=== PATIENT | male | born 1940 | race Caucasian/White ===

== ENCOUNTER → 2019-08-22 13:44 | Outpatient (BNVA) | payer MEDICARE, MEDICAID, SELFPAY | PROVIDERS: Family Provider Nurse Practitioner Family; PCP Psychiatry & Neurology Neurology; Referring Provider Psychiatry & Neurology Neurology; Visit Provider Specialist | DX: G20 Parkinson's disease (principal); Z87.891 Personal history of nicotine dependence | CPT/HCPCS: 99204; 99214 ==

== ENCOUNTER → 2019-11-30 13:38 | Outpatient (BNVA) | payer MEDICARE, MEDICAID, SELFPAY | PROVIDERS: Family Provider Nurse Practitioner Family; PCP Psychiatry & Neurology Neurology; Visit Provider Specialist | DX: G20 Parkinson's disease (principal) | CPT/HCPCS: 99213; 99214 ==

== ENCOUNTER → 2020-05-23 10:18 | Outpatient (BNVA) | payer MEDICARE, MEDICAID, SELFPAY | PROVIDERS: Family Provider Nurse Practitioner Family; PCP Obstetrics & Gynecology; Visit Provider Specialist | DX: G20 Parkinson's disease (principal); Z87.891 Personal history of nicotine dependence | CPT/HCPCS: 99214 ==

== ENCOUNTER → 2020-10-29 09:30 | Outpatient (BNVA) | payer MEDICARE, MEDICAID, SELFPAY | PROVIDERS: Family Provider Nurse Practitioner Family; PCP Obstetrics & Gynecology; Visit Provider Specialist | DX: G20 Parkinson's disease (principal); Z96.82 Presence of neurostimulator; Z87.891 Personal history of nicotine dependence | CPT/HCPCS: 95983; 95984; 99215 ==

== ENCOUNTER → 2020-12-26 10:00 | Outpatient (BNVA) | payer MEDICARE, MEDICAID, SELFPAY | PROVIDERS: Family Provider Nurse Practitioner Family; PCP Obstetrics & Gynecology; Visit Provider Specialist | DX: G20 Parkinson's disease (principal); Z48.02 Encounter for removal of sutures; Z96.82 Presence of neurostimulator | CPT/HCPCS: 95983; 95984; 99215 ==

== ENCOUNTER → 2021-02-27 13:43 | Outpatient (BNVA) | payer MEDICARE, MEDICAID, SELFPAY | PROVIDERS: Family Provider Nurse Practitioner Family; PCP Obstetrics & Gynecology; Visit Provider Specialist | DX: G20 Parkinson's disease (principal); Z96.82 Presence of neurostimulator; Z87.891 Personal history of nicotine dependence | CPT/HCPCS: 95983; 95984; 99213; 99214 ==

== ENCOUNTER → 2021-06-17 09:12 | Outpatient (BNVA) | payer MEDICARE, MEDICAID, SELFPAY | PROVIDERS: Family Provider Nurse Practitioner Family; PCP Obstetrics & Gynecology; Visit Provider Specialist | DX: G20 Parkinson's disease (principal); Z96.82 Presence of neurostimulator; Z87.891 Personal history of nicotine dependence | CPT/HCPCS: 95983; 95984; 99214 ==

== ENCOUNTER 2021-06-25 08:16 | Outpatient (CLI) | payer MEDICARE, MEDICAID, SELFPAY ==
[2021-06-25 08:35] VITALS: BP 102/69; PULSE 84; RESP 17; TEMP 36.4; O2SAT 96
[2021-06-25 09:03] VITALS: BMI 25.1
[2021-06-25 09:20] VITALS: BP 100/68; PULSE 81; RESP 18; TEMP 36.4; O2SAT 93
[2021-06-25 10:20] VITALS: BP 116/82; PULSE 75; RESP 18; TEMP 36.3; O2SAT 94
== END 2021-06-25 08:17 | disposition home or self-care (01) ==
LOC: OPS 08:55
PROVIDERS: PCP Obstetrics & Gynecology; Visit Provider Obstetrics & Gynecology
DX: U07.1 COVID-19 (principal)
CPT/HCPCS: 96365

== ENCOUNTER 2021-07-03 06:00 | Outpatient (RCR) | payer MEDICARE, MEDICAID, SELFPAY | END 2021-07-08 23:59 | disposition home or self-care (01) | LOC: GST 06:00 | PROVIDERS: PCP Obstetrics & Gynecology; Referring Provider Specialist; Visit Provider Specialist | DX: G20 Parkinson's disease (principal) | CPT/HCPCS: 92524 ==

== ENCOUNTER 2021-07-09 06:00 | Outpatient (RCR) | payer MEDICARE, MEDICAID, SELFPAY | END 2021-08-05 23:59 | disposition home or self-care (01) | LOC: GST 06:00 | PROVIDERS: PCP Obstetrics & Gynecology; Visit Provider Specialist | DX: G20 Parkinson's disease (principal) | CPT/HCPCS: 92507 ==

== ENCOUNTER 2021-08-06 06:00 | Outpatient (RCR) | payer MEDICARE, MEDICAID, SELFPAY | END 2021-09-05 23:59 | disposition home or self-care (01) | LOC: GST 06:00 | PROVIDERS: PCP Obstetrics & Gynecology; Visit Provider Specialist | DX: G20 Parkinson's disease (principal) | CPT/HCPCS: 92507 ==

== ENCOUNTER 2021-09-06 06:00 | Outpatient (RCR) | payer MEDICARE, MEDICAID, SELFPAY | END 2021-09-25 23:59 | disposition home or self-care (01) | LOC: GST 06:00 | PROVIDERS: PCP Obstetrics & Gynecology; Visit Provider Specialist | DX: G20 Parkinson's disease (principal) | CPT/HCPCS: 92507 ==

== ENCOUNTER 2022-01-06 15:50 | Outpatient (CLI) | payer MEDICARE, MEDICAID, SELFPAY ==
[2022-01-06 16:23] LABS: INR 2.49 (0.8-1.2)
== END 2022-01-06 15:51 | disposition home or self-care (01) ==
PROVIDERS: PCP Obstetrics & Gynecology; Visit Provider Obstetrics & Gynecology
DX: I48.91 Unspecified atrial fibrillation (principal)
CPT/HCPCS: 85610

== ENCOUNTER 2022-01-28 18:26 | Outpatient (CLI) | payer MEDICARE, MEDICAID, SELFPAY ==
[2022-01-28 18:49] LABS: INR 2.31 (0.8-1.2)
== END 2022-01-28 18:27 | disposition home or self-care (01) ==
PROVIDERS: PCP Obstetrics & Gynecology; Visit Provider Obstetrics & Gynecology
DX: Z79.01 Long term (current) use of anticoagulants (principal)
CPT/HCPCS: 85610

== ENCOUNTER → 2022-02-04 10:27 | Outpatient (BNVA) | payer MEDICARE, MEDICAID, SELFPAY | PROVIDERS: PCP Obstetrics & Gynecology; Visit Provider Specialist | DX: G20 Parkinson's disease (principal); Z45.42 Encounter for adjustment and management of neurostimulator; Z96.82 Presence of neurostimulator | CPT/HCPCS: 95983; 95984; 99214 ==

== ENCOUNTER → 2022-07-09 12:01 | Outpatient (BNVA) | payer MEDICARE, MEDICAID, SELFPAY | PROVIDERS: PCP Obstetrics & Gynecology; Visit Provider Nurse Practitioner Family | DX: S42.322A Displaced transverse fracture of shaft of humerus, left arm, initial encounter for closed fracture (principal); W19.XXXA Unspecified fall, initial encounter; M79.602 Pain in left arm | CPT/HCPCS: 73030; 73060 ==

== ENCOUNTER → 2022-07-22 09:27 | Outpatient (BNVA) | payer MEDICARE, MEDICAID, SELFPAY | PROVIDERS: PCP Obstetrics & Gynecology; Visit Provider Specialist | DX: H10.33 Unspecified acute conjunctivitis, bilateral (principal); G20 Parkinson's disease; Z96.82 Presence of neurostimulator | CPT/HCPCS: 95983; 95984; 99214 ==

== ENCOUNTER → 2022-11-05 09:47 | Outpatient (BNVA) | payer MEDICARE, MEDICAID, SELFPAY | PROVIDERS: PCP Obstetrics & Gynecology; Visit Provider Specialist | DX: Z45.42 Encounter for adjustment and management of neurostimulator (principal); G20 Parkinson's disease; Z96.82 Presence of neurostimulator | CPT/HCPCS: 95983; 99214 ==

== ENCOUNTER → 2023-04-06 13:10 | Outpatient (BNVA) | payer MEDICARE, MEDICAID, SELFPAY | PROVIDERS: PCP Obstetrics & Gynecology; Visit Provider Nurse Practitioner | DX: J06.9 Acute upper respiratory infection, unspecified (principal) | CPT/HCPCS: 71046 ==

== ENCOUNTER → 2023-05-05 09:14 | Outpatient (BNVA) | payer MEDICARE, MEDICAID, SELFPAY | PROVIDERS: PCP Obstetrics & Gynecology; Visit Provider Specialist | DX: Z96.89 Presence of other specified functional implants (principal); G20.A2 Parkinson's disease without dyskinesia, with fluctuations | CPT/HCPCS: 95983; 95984; 99214 ==

== ENCOUNTER 2023-09-03 16:38 | Inpatient (IN) | payer MEDICARE, MEDICAID, SELFPAY ==
[2023-09-03] VITALS (12 sets, daily range): BP systolic 105–137; BP diastolic 61–84; PULSE 95–126; RESP 19–27; TEMP 36.9; O2SAT 88–93; BMI 23.0
--- NOTE | 2023-09-03 16:39 | CTR_ITS ---
PROCEDURE INFORMATION: Exam: CTA Chest With Contrast Exam date and time: 09/03/2023 6:31 PM Age: 82 years old Clinical indication: Pain; Shortness of breath; Chest pressure; Prior surgery; Surgery date: 6+ months; Surgery type: Pacemaker; Additional info: Cp TECHNIQUE: Imaging protocol: Computed tomographic angiography of the chest with contrast. Exam focused on the arteries. 3D rendering (Not supervised by radiologist): MIP and/or 3D reconstructed images were created by the technologist. Radiation optimization: All CT scans at this facility use at least one of these dose optimization techniques: automated exposure control; mA and/or kV adjustment per patient size (includes targeted exams where dose is matched to clinical indication); or iterative reconstruction. Contrast material: OMNI 350; Contrast volume: 65 ml; Contrast route: INTRAVENOUS (IV); COMPARISON: CR (CHEST, ) 09/03/2023 5:35 PM RADIATION DOSE METRICS: Total DLP (mGy-cm): 466.2 FINDINGS: Pulmonary arteries: Pulmonary emboli in the distal right main pulmonary artery extending into the right upper lobe and right middle lobe. Aorta: Unremarkable. No aortic aneurysm. No aortic dissection. Lungs: Patchy ground-glass and consolidative opacities in the lung bases and posterior aspect of the right upper lobe which may represent pulmonary infarcts. Pleural spaces: Unremarkable. No pneumothorax. No pleural effusion. Heart: There is evidence of right heart strain with an RV to LV ratio measuring 1.1. Lymph nodes: Unremarkable. No enlarged lymph nodes. Bones/joints: Unremarkable. No acute fracture. Soft tissues: Unremarkable. CT/CT angio chest PE protcl [id number] IMPRESSION: 1. Pulmonary emboli in the distal right main pulmonary artery extending into the right upper lobe and right middle lobe. 2. There is evidence of right heart strain with an RV to LV ratio measuring 1.1. 3. Patchy ground-glass and consolidative opacities in the lung bases and posterior aspect of the right upper lobe which may represent pulmonary infarcts.
--- NOTE | 2023-09-03 16:39 | XRR_ITS ---
PROCEDURE INFORMATION: Exam: XR Chest Exam date and time: 09/03/2023 5:35 PM Age: 82 years old Clinical indication: Chest wall pain; Additional info: Cp TECHNIQUE: Imaging protocol: Radiologic exam of the chest. Views: 1 view. COMPARISON: CR XR chest 2V* [id number] 04/06/2023 1:22 PM FINDINGS: Lungs: Irregular opacities in the right lung base lesser extent the left lung base. Pleural spaces: Unremarkable. No pleural effusion. No pneumothorax. Heart/Mediastinum: Unremarkable. No cardiomegaly. Bones/joints: Unremarkable. XR/XR chest 1V portable [id number] IMPRESSION: Irregular opacities in the right lung base and to a lesser extent the left lung base.
--- NOTE | 2023-09-03 16:44 | ECG_ITS ---
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 Measurements Intervals [place] Rate: 102 P: 0 [place]: 0 QRS: -76 QRSD: 82 T: 51 QT: 357 QTc: 465 Interpretive Statements UNINTERPRETABLE RHYTHM SECONDARY TO BASELINE ARTIFACT No previous ECG available for comparison Electronically Signed On 09-04-2023 8:38:03 CDT by Braxton John M.D. [id number] f
--- NOTE | 2023-09-03 16:47 | ED_ITS ---
HPI - Chest Pain 2 General: Chief Complaint: Chest Pain Stated Complaint: chest pain/ SOB Time Seen by Provider: 09/03/23 16:39 Source: patient Mode of arrival: ambulatory Limitations: no limitations History of Present Illness: 82-year-old male is here from the neurol ogy clinic after wrap response for chest pain shortness of breath. Patient's been in the long-term states he has been less mobile and states yesterday started having some sharp pains to the right side of his chest along with shortness of breath. States it is worse with exertion denies any cough or fever. Rates his pain a 4 out of 10 currently Associated symptoms: Reports dyspnea; Deny abdominal pain, fever(s), nausea or vomiting Review of Systems 2 Const: Denies: fever(s), chills, body aches or change in appetite ENMT: Denies: throat pain or dental pain Card: Reports: chest pain Resp: Reports: dyspnea GI: Denies: abdominal pain, nausea, vomiting or diarrhea Musc: Denies: neck pain or back pain Skin/Breast: Denies: rash Neuro: Denies: headache(s) PFSH ED 2 PFSH: Medical History Parkinson's Disease Surgical History Status post deep brain stimulator placement Family History Other Cancer Diabetes Hypertension Denies family history of CAD (coronary artery disease) Family history of premature coronary artery disease Stroke Social History Smoking and tobacco/nicotine status: former use of tobacco/nicotine Quit status (tobacco/nicotine): has quit using Year quit tobacco: 1986 Alcohol intake: current Alcohol intake frequency: 3 or more drinks per day Alcohol type: beer Substance/Drug Use: never Physical Exam 2 Const: COMMON NORMALS: no acute distress, patient oriented x3 and healthy appearing HENMT: COMMON NORMALS: normocephalic and atraumatic HEAD & SCALP: n ormocephalic and atraumatic Neck/C-Spine: COMMON NORMALS: full ROM and supple Chest: COMMONS NORMALS: normal inspection of the chest and normal palpation of entire chest wall Resp: COMMON NORMALS: normal respiratory effort, No retractions, No use of accessory muscles and clear to auscultation bilaterally AUSCULTATION: clear to auscultation bilaterally Cardio: COMMON NORMALS: regular rate, regular rhythm and No murmurs present (Cardio) RATE: regular rate RHYTHM: regular rhythm GI: COMMON NORMALS: Normal to inspection, nondistended, normoactive bowel sounds present, Soft to palpation, non-tender and no masses PALPATION: Yes Soft to palpation Extremity: COMMON NORMALS: normal to inspection and full ROM Neuro: COMMON NORMALS: patient oriented x3, moves all extremities and no focal motor deficits Psych: COMMON NORMALS: mental status grossly normal, Normal thought process present and cooperative THOUGHT PROCESS: Normal thought process present Skin: COMMON NORMALS: no rashes or lesions noted and no wounds GENERAL SKIN EXAM: no rashes or lesions noted Course 2 Vital Signs: Vital signs: Vital Signs Temperature 98.4 F 09/03/23 16:45 Pulse Rate 104 H 09/03/23 19:30 Respiratory Rate 22 H 09/03/23 16:45 Blood Pressure 105/61 09/03/23 19:30 Pulse Oximetry 91 09/03/23 19:30 Oxygen Delivery Me thod Nasal Cannula 09/03/23 19:30 Oxygen Flow Rate 2 09/03/23 19:30 MDM - Chest Pain Medical Decision Making Patient presents with pulmonary emboli his blood pressure here has been stable will started on heparin spoke to the hospitalist will admit to cardiac stepdown at this time. Medical Records I reviewed the patient's medical records. Lab Data I reviewed the patient's lab results. 09/03/23 18:18 09/03/23 17:36 Radiology Impressions Chest CTA 09/03/23 16:39 IMPRESSION: 1. Pulmonary emboli in the distal right main pulmonary artery extending into the right upper lobe and right middle lobe. 2. There is evidence of right heart strain with an RV to LV ratio measuring 1.1. 3. Patchy ground-glass and consolidative opacities in the lung bases and posterior aspect of the right upper lobe which may represent pulmonary infarcts. Chest X-Ray 09/03/23 16:39 IMPRESSION: Irregular opacities in the right lung base and to a lesser extent the left lung base. Laboratory Results WBC 13.72 10^3/uL (3.29-11.43) H 09/03/23 18:18 Corrected WBC Cancelled 09/03/23 17:36 RBC 3.92 10^6/uL (3.85-5.65) 09/03/23 18:18 Hgb 12.30 g/dL (11.27-16.99) 09/03/23 18:18 Hct 37.1 % (37-53) 09/03/23 18:18 MCV 94.6 fl (82-101) 09/03/23 18:18 MCH 31.4 pg (27-33) 09/03/23 18:18 MCHC 33.2 g/dL (30-55) 09/03/23 18:18 RDW 12.7 % (12.1-15.1) 09/03/23 18:18 Plt Count 167 10^3/cmm (157-399) 09/03/23 18:18 MPV 9.4 fL (7.4-10.4) 09/03/23 18:18 Gran % Cancelled 09/03/23 17:36 Neut % (Auto) 79.3 % 09/03/23 18:18 Lymph % (Auto) 7.1 % 09/03/23 18:18 [place] % (Auto) 12.8 % 09/03/23 18:18 Eos % (Auto) 0.1 % 09/03/23 18:18 Baso % (Auto) 0.1 % 09/03/23 18:18 Neut # (Auto) 10.88 10^3/uL (1.8-7.7) H 09/03/23 18:18 Lymph # (Auto) 1.0 10^3/uL (0.8-4.8) 09/03/23 18:18 [place] # (Auto) 1.8 10^3/uL (0.2-0.9) H 09/03/23 18:18 Eos # (Auto) 0.0 10^3/uL (0.0-0.8) 09/03/23 18:18 Baso # (Auto) 0.0 10^3/uL (0.0-0.1) 09/03/23 18:18 Absolute Gran (auto) Cancelled 09/03/23 17:36 Nucleated RBC % (auto) 0 % 09/03/23 18:18 Nucleated RBCs # 0.0 /100WBC 09/03/23 18:18 PT 15.30 SECONDS (12.1-14.9) H 09/03/23 17:36 INR 1.17 (0.8-1.2) 09/03/23 17:36 Sodium 139 mmol/L (136-145) 09/03/23 17:36 Potassium 4.4 mmol/L (3.5-5.1) 09/03/23 17:36 Chloride 105 mmol/L (98-107) 09/03/23 17:36 Carbon Dioxide 23 mmol/L (22-29) 09/03/23 17:36 Anion Gap 15.4 (5-19) 09/03/23 17:36 BUN 17 mg/dL (8-23) 09/03/23 17:36 Creatinine 0.7 mg/dL (0.7-1.2) 09/03/23 17:36 GFR Calculation Not Reportable 09/03/23 17:36 Glucose 109 mg/dL (65-115) 09/03/23 17:36 Calculated Osmolality 290 mOsm/kg (285-295) 09/03/23 17:36 Calcium 8.8 mg/dL (8.5-10.5) 09/03/23 17:36 Total Bilirubin 0.7 mg/dL (0.15-1.2) 09/03/23 17:36 AST 23 U/L (0-40) 09/03/23 17:36 ALT 20 U/L (0-41) 09/03/23 17:36 Alkaline Phosphatase 171 U/L (40-130) H 09/03/23 17:36 Troponin T Baseline < 6 ng/L (0-15) 09/03/23 17:36 NT-Pro-B Natriuret Pep 1431 pg/mL (0-450) H 09/03/23 17:36 Total Protein 7.1 g/dL (6.6-8.7) 09/03/23 17:36 Albumin 3.3 g/dL (3.5-5.2) L 09/03/23 17:36 Globulin 3.8 g/dL (1.3-4.6) 09/03/23 17:36 TSH 1.00 uIU/mL (0.27-4.20) 09/03/23 17:36 All radiology interpretation(s) finalized by discharge Critical Care Time 2 Critical Care Time: Critical Care Time: Yes Total Critical Care Time: 40 Attestation: The high probability of a clinically significant, sudden or life threatening deterioration of the patient's cv system(s) required my full and direct attention, intervention and personal management. The critical care time is as shown. This time is in addition to time spent performing any reported procedures but includes the following: [x] Data and vital sign review and interpretation [x] Patient assessment, examination and intervention [x] Documentation [x] Medication orders and management Discharge Plan Discharge Patient Disposition: Admitted As Inpatient Clinical Impression: Pulmonary embolism Condition: Stable Prescriptions: No Action warfarin 5 mg tablet 5 mg PO .COMPLEX Rx Instructions: 5 mg PO ; levothyroxine 75 mcg capsule 75 mcg PO DAILY multivitamin Capsule 1 cap PO DAILY tamsulosin 0.4 mg capsule 0.4 mg PO DAILY furosemide 20 mg tablet 10 mg PO QAM carbidopa-levodopa 25-100 mg tablet 1 tab PO BID Qty: 180 3RF Rx Instructions: In the morning and at noon along with the ER dose carbidopa-levodopa 50-200 mg tablet extended release See Rx Instructions .ROUTE .COMPLEX Qty: 270 3RF Dose Instruction: TAKE ONE TABLET BY MOUTH EVERY MORNING, AT NOON AND IN THE EVENING Rx Instructions: TAKE ONE TABLET BY MOUTH EVERY MORNING, AT NOON AND IN THE EVENING rivastigmine tartrate 1.5 mg capsule 1.5 mg PO BID 90 Days Qty: 180 3RF metoprolol succinate 50 mg tablet extended release 24 hr See Rx Instructions .ROUTE .COMPLEX Qty: 60 5RF Dose Instruction: TAKE ONE TABLET BY MOUTH TWICE A DAY Rx Instructions: TAKE ONE TABLET BY MOUTH TWICE A DAY Referrals: Lance Davila MD [Primary Care Provider] - Coding Level of Care Code ED Correctional Maintenance Technician for Elaine Burton
[2023-09-03 18:06] LABS: INR 1.17 (0.8-1.2)
[2023-09-03 18:08] LABS: Troponin(5th) Baseline < 6 ng/L (0-15)
[2023-09-03 18:17] LABS: Alanine Aminotransferase 20 U/L (0-41); Albumin Level 3.3 g/dL (3.5-5.2); Alkaline Phosphatase 171 U/L (40-130); Aspartate Amino Transferase 23 U/L (0-40); Blood Urea Nitrogen 17 mg/dL (8-23); Calcium 8.8 mg/dL (8.5-10.5); Carbon Dioxide 23 mmol/L (22-29); Chloride 105 mmol/L (98-107); Globulin 3.8 g/dL (1.3-4.6); Glucose 109 mg/dL (65-115); NT Pro B Type Natriuretic Pept 1431 pg/mL (0-450); Osmolality Calculated 290 mOsm/kg (285-295); Sodium 139 mmol/L (136-145); Total Bilirubin 0.7 mg/dL (0.15-1.2); Total Protein 7.1 g/dL (6.6-8.7)
[2023-09-03 18:25] LABS: Basophils % 0.1 %; Eosinophils % 0.1 %; Hematocrit 37.1 % (37-53); Lymphocytes % 7.1 %; Mean Corpuscular HGB Conc 33.2 g/dL (30-55); Mean Corpuscular Hemoglobin 31.4 pg (27-33); Mean Corpuscular Volume 94.6 fl (82-101); Mean Platelet Volume 9.4 fL (7.4-10.4); Monocytes # 1.8 10^3/uL (0.2-0.9); Monocytes % 12.8 %; Neutrophils # 10.88 10^3/uL (1.8-7.7); Neutrophils % 79.3 %; Nucleated Red Blood Cells % 0 %; Platelet Count 167 10^3/cmm (157-399); Red Blood Count 3.92 10^6/uL (3.85-5.65); Red Cell Distribution Width 12.7 % (12.1-15.1); White Blood Count 13.72 10^3/uL (3.29-11.43)
[2023-09-03 18:33] LABS: Anion Gap 15.4 (5-19); Potassium 4.4 mmol/L (3.5-5.1)
--- NOTE | 2023-09-03 18:39 | ECG_ITS ---
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 Measurements Intervals [place] Rate: 124 P: 0 [place]: 0 QRS: -1 QRSD: 81 T: -29 QT: 336 QTc: 484 Interpretive Statements ATRIAL FIBRILLATION WITH RAPID VENTRICULAR RESPONSE POSSIBLE ANTERIOR MYOCARDIAL INFARCTION , OF INDETERMINATE AGE [30 ms Q WAVE IN V3/V4, OR R < 0.2 mV IN V4] ST DEPRESSION, CONSIDER SUBENDOCARDIAL INJURY [0.1+ mV ST DEPRESSION] Electronically Signed On 09-04-2023 8:38:42 CDT by Braxton John M.D. [id number]
[2023-09-03] MEDS: iohexol 350 mg/mL 500 mL Btl (per mL) IV (18:41)
[2023-09-03 19:37] LABS: Troponin 5 2HR Delta 0.40001 ABS# (0-10)
--- NOTE | 2023-09-03 21:47 | P.HP_ITS ---
Providers/Chief Complaint 2 Admitting Physician: Jenn Giles MD Primary Care Provider: Lance Davila MD Chief Complaint: chest pain/ SOB History of Present Illness Farhat Guardado is a 82 year old male here from [facility] [place], he was at neurology clinic today following up with Dr. Rios for his Parkinson's disease, rapid response was called when he started complaining of left-sided chest pain which lasted for about a few minutes, in the ER CT chest revealed PE with right heart strain, he was in A-fib RVR subtherapeutic he was started on heparin drip. At the time of my evaluation he is not in active chest pain. A-fib RVR heart rate in 110s to 130 range. I will give him Cardizem 5 mg IV push. Patient is not complaining active chest pain, he is denying nausea, vomiting, stating that [facility] soft diet [facility], uses a walker, he is also endorsing that he is DNR/DNI Review of Systems 2 Const: Denies: fever(s) Eyes: Denies: change in vision ENMT: Denies: throat pain Card: Reports: swelling of feet/ankles; Denies: chest pain Resp: Denies: dyspnea GI: Denies: abdominal pain : Denies: flank pain Medications/Allergies Home Medications Medication Instructions Recorded Confirmed Last Taken Type furosemide 20 mg tablet 10 mg PO QAM 08/22/19 09/03/23 Unknown History levothyroxine 75 mcg capsule 75 mcg PO DAILY 08/22/19 09/03/23 Unknown History multivitamin 1 cap PO DAILY 08/22/19 09/03/23 Unknown History tamsulosin 0.4 mg capsule 0.4 mg PO DAILY 08/22/19 09/03/23 Unknown History warfarin 5 mg tablet 5 mg PO .COMPLEX 08/22/19 09/03/23 Unknown History carbidopa 25 mg-levodopa 100 mg 1 tab PO BID #180 tabs 05/05/23 09/03/23 Unknown Rx tablet carbidopa ER 50 mg-levodopa 200 mg See Rx Instructions .Route 05/05/23 09/03/23 Unknown Rx tablet,extended release .COMPLEX #270 tabs rivastigmine tartrate 1.5 mg 1.5 mg PO BID 90 days #180 caps 05/05/23 05/05/23 Unknown Rx capsule metoprolol succinate 50 mg See Rx Instructions .Route 07/15/23 09/03/23 Unknown Rx tablet,extended release 24 hr .COMPLEX #60 tabs Allergies Allergy/AdvReac Type Severity Reaction Status Date / Time adhesive Allergy rash Verified 09/03/23 14:38 PFSH Acute 2 PFSH: Medical History Thyroid disease Afib Pacemaker Parkinson's Disease Surgical History History of surgery on arm Status post deep brain stimulator placement Family History Other Cancer Diabetes Hypertension Denies family history of CAD (coronary artery disease) Family history of premature coronary artery disease Stroke Social History Smoking and tobacco/nicotine status: former use of tobacco/nicotine Quit status (tobacco/nicotine): has quit using Year quit tobacco: 1986 Alcohol intake: current Alcohol intake frequency: 3 or more drinks per day Alcohol type: beer Substance/Drug Use: never Vitals/I&O/Wt Last Vital Signs Temp 98.4 F 09/03/23 21:36 Pulse 119 H 09/03/23 21:36 Resp 27 H 09/03/23 21:36 BP 121/75 09/03/23 21:36 Pulse Ox 93 09/03/23 21:36 O2 Del Method Nasal Cannula 09/03/23 21:36 O2 Flow Rate 2 09/03/23 20:00 09/03/23 09/03/23 09/03/23 06:59 14:59 22:59 Intake Total 300 / 300 Balance 300 / 300 Weight last 48 hrs Weight 94.075 kg Weight 74.843 kg Weight 74.843 kg Physical Exam 2 Narrative: Patient on 3 L of oxygen Currently is in A-fib RVR Active chest pain Able to answer my question Dry mucous membranes however patient is showing signs of fluid overload Lower extremity edema 3+ GCS 15 NIH 0 Abdomen distended nontender no active chest pain Data 09/03/23 18:18 09/03/23 17:36 A&P Assessment and plan (1) Pulmonary embolism: (2) Parkinson's Disease: Qualifiers: Dyskinesia presence: without dyskinesia Fluctuating manifestations: w ith fluctuating manifestations Qualified Code(s): G20.A2 - Parkinson's disease without dyskinesia, with fluctuations (3) Shortness of breath: (4) Edema: Plan PE: Submassive Start heparin drip Right heart strain Check echo Troponin unremarkable No active chest pain A-fib RVR Cardizem 5 mg IV push I will change his metoprolol succinate to tartrate at this point Check mag level along potassium Patient is hypothyroid as well Subtherapeutic INR Patient is willing to switch to Eliquis If his insurance is able to cover Eliquis we can stop bridging therapy with Coumadin and switch to Eliquis at the time of discharge Acute CHF exacerbation EF is unknown Request echo I want to give Lasix at this point because no sign of pulmonary edema however he is showing signs of fluid overload blood pressure is on softer side avoid Lasix at this point Will add low-dose Lasix in the morning Place Goldstein catheter Acute hypoxia requiring 3 L Does not use oxygen at the [facility] Anticipate improvement with diuresis in the morning Parkinson's disease continue Carbidopa/levodopa Patient is DNR/DNI Will do pur?ed diet Attestations 2 Medical Necessity Statement*: More than 2 midnights anticipated Diagnoses Pulmonary embolism I26.99 Parkinson's disease without dyskinesia, with fluctuating manifestations G20.A2 Dyskinesia presence: without dyskinesia Fluctuating manifestations: with fluctuating manifestations Shortness of breath R06.02 Edema R60.9
[2023-09-03] MEDS: heparin 5,000 unit/mL INJ 1 mL 4000 UNIT IVP (21:49)
[2023-09-03] MEDS: heparin drip 25,000 UNIT/500 ML PREMIX 26 UNIT IV (21:54)
[2023-09-04] VITALS (9 sets, daily range): BP systolic 99–107; BP diastolic 58–76; PULSE 91–125; RESP 18–25; TEMP 36.7–37.3; O2SAT 92–95
[2023-09-04 00:25] LABS: Troponin 5 6HR 7.35 ng/L (0-15); Troponin 5 6HR Delta 1.35001 ng/L (0-12)
[2023-09-04 00:30] LABS: Magnesium 2.1 mg/dL (1.7-2.3)
[2023-09-04] MEDS: dilTIAZem 5 mg/mL SDV 5 mL IVP (00:30)
[2023-09-04 00:56] LABS: Vitamin B12 551 pg/mL (232-1245)
[2023-09-04 04:08] LABS: Basophils % 0.2 %; Eosinophils % 0.2 %; Hematocrit 32.8 % (37-53); Lymphocytes # 1.1 10^3/uL (0.8-4.8); Lymphocytes % 8.9 %; Mean Corpuscular HGB Conc 32.9 g/dL (30-55); Mean Corpuscular Hemoglobin 30.9 pg (27-33); Monocytes # 1.7 10^3/uL (0.2-0.9); Monocytes % 13.7 %; Neutrophils # 9.31 10^3/uL (1.8-7.7); Neutrophils % 76.4 %; Nucleated Red Blood Cells % 0 %; Platelet Count 150 10^3/cmm (157-399); Red Blood Count 3.49 10^6/uL (3.85-5.65); Red Cell Distribution Width 12.9 % (12.1-15.1); White Blood Count 12.18 10^3/uL (3.29-11.43)
[2023-09-04 04:19] LABS: INR 1.27 (0.8-1.2)
[2023-09-04 04:30] LABS: Blood Urea Nitrogen 14 mg/dL (8-23); Calcium 8.4 mg/dL (8.5-10.5); Carbon Dioxide 22 mmol/L (22-29); Chloride 104 mmol/L (98-107); Creatinine Clr Calc Pharmacy 84.8227; Glucose 124 mg/dL (65-115); Magnesium 2.2 mg/dL (1.7-2.3); Osmolality Calculated 286 mOsm/kg (285-295); Phosphorus 2.3 mg/dL (2.5-4.5); Sodium 137 mmol/L (136-145)
[2023-09-04] MEDS: carbidopa-levodopa 25-100mg Tablet 1 EACH PO (05:58)
--- NOTE | 2023-09-04 06:17 | PC.NURSE ---
Spoke to Dr. Giles regarding daughter in laws concerns regarding current diet order, Dysphasia level 4 (Extremely thick/Pureed). Daughter in law and patient both state that he has been NPO and is currently only receiving nutrition through peg tube, only takes sips of water and ice chips. Daughter in law states he has not been evaluated by a speech therapist since his Trach removal one week ago.
--- NOTE | 2023-09-04 07:23 | USCV_ITS ---
Farhat Guardado Age: 82 Gender: M : 1940 Exam Date: 09/04/2023 08:28 Ordering Phys: Jenn Giles MD Technologist: CT Exam Location: [facility] [place] Indication: dvt PROCEDURES: The venous duplex Doppler examination of both lower extremities was performed in the standard fashion. FINDINGS: Evidence of acute occlusive deep vein thrombosis in the right superficial femoral through popliteal veins with abnormal flow dynamics. Evidence of acute occlusive deep vein thrombosis in the left superficial femoral vein with abnormal flow dynamics. Limited quality exam. CONCLUSIONS Bilateral acute DVT. Dr. Nerissa López DO (Electronically Signed) Final Date: 04 September 2023 09:54 S
--- NOTE | 2023-09-04 09:01 | PC.CHAP ---
Pastoral Care Encounter/Spiritual Assessment Type of Contact [] Declined supervisor finishing room visit [] Patient/Family/Request visit [] Outpatient visit [] Follow-up visit [] Physician referral [] Code/Alert [] Routine visit [] Staff referral [] Actively dying [x] Patient sleeping [] Family support [] [] Out of room [] Palliative care [] [] Receiving care in room [] Pre-surgical visit [] Trauma [] Long length of stay [] ICU visit [] Other: Relational/Emotional Strength [] Patient feels connected with others/family/visitors/staff [] Distress [] Loneliness/isolation [] Abandonment Spirituality of Patient [] Person of [place] [] Attends Anabaptist of their [place] [] Believes in Prayer [] Reads Bible or Confucianism materials [] There are Spiritual issues to be addressed Offshore Diver Interventions [] Prayer [] Active listening [] Non-anxious presence [] Spiritual/emotional support [] Crisis/trauma care [] Spiritual counseling [] Bereavement support [] Provided bereavement packet [] Provided Bible/devotional materials [] Provided toy/stuffed animal, coloring book to patient or family member [] Provided Communion [] Anointing/[place] [] Salvation [] Completed spiritual assessment [] Other: Impact on Illness or Injury [] Angry [] Fearful [] Anxious [] Often cries [] Exhaustion [] Unable to work [] Unable to attend anglican [] Unable to walk/stand [] Unable to read [] Unable to drive [] Unable to eat/drink [] Unable to sleep [] Unable to be with family [] Patient intubated [] Other: Summary Time spent with patient
[2023-09-04] MEDS: levothyroxine 75 mcg Tablet PO (09:35)
[2023-09-04] MEDS: FUROsemide 40 mg Tablet PO (09:35)
[2023-09-04] MEDS: sennosides-docusate Tablet 1 TAB PO (09:35)
[2023-09-04] MEDS: metoprolol tartrate 50 mg Tablet PO ×2 (09:49→21:36)
--- NOTE | 2023-09-04 10:18 | PC.SOCIAL ---
Pg 2 IMM Explained to pt Pg 2 IMM. No questions voiced. Provided pt a copy. Initialed, dated, & timed a copy & placed in chart.
[2023-09-04 12:43] LABS: Partial Thromboplastin Time 66.9 SECONDS (23.9-36.7)
--- NOTE | 2023-09-04 14:01 | P.PN_ITS ---
Vitals/I&O/Wt Last Vital Signs Temp 98.0 F 09/04/23 11:48 Pulse 91 09/04/23 11:48 Resp 23 H 09/04/23 11:48 BP 104/64 09/04/23 11:48 Pulse Ox 94 09/04/23 11:48 O2 Del Method Room Air 09/04/23 11:48 O2 Flow Rate 3 09/03/23 22:13 09/03/23 09/04/23 09/04/23 22:59 06:59 14:59 Intake Total 300 / 300 0 / 300 389.567 / 389.567 Output Total 300 / 300 Balance 300 / 300 -300 / 0 389.567 / 389.567 Weight last 48 hrs Weight 91.671 kg Weight 94.075 kg Weight 74.843 kg Weight 74.843 kg Physical Exam 2 Narrative: Resting tremor Const: COMMON NORMALS: patient oriented x3 and alert GENERAL APPEARANCE: c ooperative and frail appearing ORIENTATION/CONSCIOUSNESS: Yes awake HENMT: COMMON NORMALS: oropharynx normal OTHER: Moderate to severe dysarthria Neck/C-Spine: COMMON NORMALS: no JVD Resp: COMMON NORMALS: normal respiratory effort and clear to auscultation bilaterally AUSCULTATION: clear to auscultation bilaterally Cardio: COMMON NORMALS: no JVD, regular rhythm, S1 normal heart sound present, S2 normal heart sound present and No murmurs present (Cardio) RHYTHM: regular rhythm HEART SOUNDS: S1 normal heart sound present and S2 normal heart sound present GI: COMMON NORMALS: Normal to inspection, nondistended, normoactive bowel sounds present, Soft to palpation and non-tender PALPATION: Yes Soft to palpation OTHER: PEG Extremity: COMMON NORMALS: no joint enlargement and no pedal edema Neuro: COMMON NORMALS: patient oriented x3 and moves all extremities S ENSORIUM/ORIENTATION: Yes alert Skin: COMMON NORMALS: no rashes or lesions noted GENERAL SKIN EXAM: no rashes or lesions noted Urinary Catheter Management: Goldstein: Cath Placed During This Visit: yes Reason for Continuing Indwelling Catheter: Accurate Measurement of Urinary Output in Critically Ill Patients Urinary Catheter Date of Insertion: 09/04/23 Urinary Catheter Time of Insertion: 04:20 Data 09/04/23 03:11 09/04/23 03:11 A&P Assessment and plan (1) Pulmonary embolism: (2) Parkinson's Disease: Qualifiers: Dyskinesia presence: without dyskinesia Fluctuating manifestations: w ith fluctuating manifestations Qualified Code(s): G20.A2 - Parkinson's disease without dyskinesia, with fluctuations (3) Shortness of breath: (4) Edema: Plan PE: Intermediate risk PE complicated systemic symptoms with new oxygen dependence/hypoxia. Not normally on oxygen. Self blood pressure, suspicion of right heart strain. Congestive heart failure. Reviewed vitals, CBC, CMP, troponin series, TSH, vitamin B12, CTA, venous duplex, EKG with atrial fibrillation. Blood pressure is soft, 90s, 100s systolic, but not in shock. Tachycardia this morning, but appears better with resumption of his home dose metoprolol. Pending echocardiogram for additional assessment for right heart strain. Continue anticoagulation. Discussed with him warfarin dose was subtherapeutic.) To increase warfarin dose in the meantime sent prescription for Eliquis, prescription sent, follow-up with pharmacy and appears it is covered without co- pay as he had been agreeable to switch to Eliquis will discontinue warfarin at this time. Continues on heparin drip, also on warfarin, risk of bleeding, monitor PTT, monitor for any bleeding, reassess blood counts. Right heart strain No active chest pain Monitor on telemetry, at risk of arrhythmia PE, suspected right heart strain. Discussed with case management Additionally with PE, new oxygen requirement, will need further rehabilitation. Discussed with case management manager. Will get additional assessment by PT, OT. A-fib RVR did not tolerate Cardizem very well, blood pressure soft, continued. Restarted on home dose metoprolol 50 mg twice daily, so far doing better. Monitor heart rate. At risk of shock. Monitor on telemetry Patient is hypothyroid as well Subtherapeutic INR Patient is willing to switch to Eliquis We will send in a prescription to assess cost -discussed with pharmacy, medication will be covered for him without co-pay. Stop warfarin. Stop INR. Acute CHF exacerbation EF is unknown Echo pending On gentle hydration with oral Lasix, at risk of hypotension, reassess volume status. Hold additional Lasix for now given preload dependence. Risk of cardiogenic and obstructive shock. Acute hypoxia requiring 3 L Does not use oxygen at the correction Parkinson's disease continue Carbidopa/levodopa Patient is DNR/DNI Does not appear that patient takes anything by mouth. NPO. ST eval. Confirm usual diet. Tube feeds if needed. Attestations 2 Medical Necessity Statement*: Continue admission for assessment management of medium risk PE with risk of hemodynamic deterioration, stop blood pressure, with concomitant CHF, anticoagulation after subtherapeutic warfarin, optimization of control of A-fib with RVR, and a gentleman of advanced age with new oxygen dependence. Post discharge planning and arrangements. Diagnoses Pulmonary embolism I26.99 Parkinson's disease without dyskinesia, with fluctuating manifestations G20.A2 Dyskinesia presence: without dyskinesia Fluctuating manifestations: with fluctuating manifestations Shortness of breath R06.02 Edema R60.9
--- NOTE | 2023-09-04 16:48 | PC.OT ---
OT evaluation request received. Will hold until tomorrow per nursing.
--- NOTE | 2023-09-04 17:00 | PC.NURSE ---
called snf and verified pt's tube feeding schedule staff richard pt gets jevity 1.5 addison- 360 mls boluses 4x a day. with 50 flush of water before and after feeding. notified dr ludwig.
[2023-09-04 17:49] LABS: Partial Thromboplastin Time 70.3 SECONDS (23.9-36.7)
[2023-09-04] MEDS: carbidopa-levodopa ER 50-200mg Tablet 1 EACH PO (18:39)
[2023-09-04] MEDS: heparin drip 25,000 UNIT/500 ML PREMIX 26 UNIT IV (19:16)
--- NOTE | 2023-09-04 21:49 | USCV_ITS ---
Farhat Guardado Age: 82 Gender: M : 1940 Exam Date: 09/04/2023 01:49 Ordering Phys: Jenn Giles MD Technologist: MATTHEW Exam Location: [facility] [place] Indication: c/o pulmonary emboli, admitted for chest pain, shortness of breath. Patient is unresponsive in CSU-102. BP: 121 / 75 HR: 102 Rhythm: Atrial fibrillation Technical Quality: Adequate MEASUREMENTS (Male / Female) Normal Values 2D ECHO LV Diastolic Diameter PLAX 5.0 cm 4.2 - 5.9 / 3.9 - 5.3 cm IVS Diastolic Thickness 1.0 cm 0.6 - 1.0 / 0.6 - 0.9 cm IVS Systolic Thickness 1.6 cm LVPW Diastolic Thickness 1.4 cm 0.6 - 1.0 / 0.6 - 0.9 cm LVPW Systolic Thickness 1.7 cm LVOT Diameter 2.1 cm LV Ejection Fraction 2D Teich 69.8 % LV Ejection Fraction MOD 2C 52.2 % LV Ejection Fraction 2C AL 52.3 % LA Diameter 4.2 cm Aorta at Sinotubular Diameter 3.0 cm IVC Diameter 1.6 cm M-MODE LA Ao Ratio MM 1.2 AV Cusp Separation MM 1.8 cm DOPPLER AV Peak Velocity 99.0 cm/s LVOT Peak Velocity 73.0 cm/s AV Area Cont Eq vti 3.4 cm squared AV Area Cont Eq pk 2.5 cm squared MV Area PHT 5.0 cm squared Mitral E to A Ratio 0.0 TV Peak Velocity 252.5 cm/s TR Peak Velocity 290.0 cm/s TR Peak Gradient 33.6 mmHg TV Peak E Velocity 64.0 cm/s Right Atrial Pressure 3.0 mmHg Pulmonary Artery Systolic Pressu 36.6 mmHg PV Peak Velocity 126.3 cm/s FINDINGS Left Ventricle Left ventricle is normal in size. LV systolic function is normal with EF of 55-60%. No regional wall motion abnormalities. Right Ventricle Normal in size and function Right Atrium Normal in size Left Atrium Dilated Mitral Valve Grossly normal Aortic Valve Structurally normal aortic vlave. No significant stenosis or regurgitation. Tricuspid Valve Mild tircuspid regurgitation. RVSP is 35-40mmHg. This is consistent with mild pulmonary hypertension Pulmonic Valve Not well visualized Pericardium Normal Aorta Ascending aorta is mildly dilated with diameter of 3.7 cm. IVC Appears to be normal CONCLUSIONS LV systolic function is normal with EF of 55-60% Left atrial dilation Mild tricuspid regurgitation. Mild pulmonary hypertension Ascending aorta is mildly dilated with diameter of 3.7cm No comparison studies are available Braxton John MD (Electronically Signed) Final Date: 04 September 2023 13:56 S
[2023-09-05] VITALS (19 sets, daily range): BP systolic 93–120; BP diastolic 57–89; PULSE 89–117; RESP 18–29; TEMP 36.6–37.2; O2SAT 92–96
[2023-09-05 00:03] LABS: Partial Thromboplastin Time 87.7 SECONDS (23.9-36.7)
[2023-09-05] MEDS: carbidopa-levodopa 25-100mg Tablet 1 EACH PO ×2 (05:41→14:02)
[2023-09-05 05:58] LABS: Adenovirus Not Detected (NOT DETECT); Chlamydia Pneumoniae Not Detected (NOT DETECT); Coronavirus 229E,HKU1,NL63,OC4 Not Detected (NOT DETECT); Human Metapneumovirus Not Detected (NOT DETECT); Human Rhinovirus/Enterovirus Not Detected (NOT DETECT); Influenza A Not Detected (NOT DETECT); Influenza A H1 Not Detected (NOT DETECT); Influenza A H1-2009 Not Detected (NOT DETECT); Influenza A H3 Not Detected (NOT DETECT); Influenza B Not Detected (NOT DETECT); Mycoplasma Pneumoniae Not Detected (NOT DETECT); Parainfluenza Virus Type 1 Not Detected (NOT DETECT); Parainfluenza Virus Type 2 Not Detected (NOT DETECT); Parainfluenza Virus Type 3 Not Detected (NOT DETECT); Parainfluenza Virus Type 4 Not Detected (NOT DETECT); Respiratory Syncytial Virus A Detected (NOT DETECT); Respiratory Syncytial Virus B Not Detected (NOT DETECT); SARS-COV-2 Not Detected (NOT DETECT)
[2023-09-05 05:59] LABS: Respiratory Syncytial Virus B Not Detected (NOT DETECT); Results from Genmark
[2023-09-05 06:00] LABS: Respiratory Syncytial Virus A Detected (NOT DETECT)
[2023-09-05 07:25] LABS: Partial Thromboplastin Time 57.8 SECONDS (23.9-36.7)
[2023-09-05 07:52] LABS: Basophils % 0.1 %; Hematocrit 33.7 % (37-53); Lymphocytes # 1.1 10^3/uL (0.8-4.8); Lymphocytes % 7.7 %; Mean Corpuscular HGB Conc 32.6 g/dL (30-55); Mean Corpuscular Volume 94.9 fl (82-101); Mean Platelet Volume 9.5 fL (7.4-10.4); Monocytes # 1.7 10^3/uL (0.2-0.9); Monocytes % 12.5 %; Neutrophils # 10.74 10^3/uL (1.8-7.7); Neutrophils % 79.3 %; Nucleated Red Blood Cells % 0 %; Platelet Count 168 10^3/cmm (157-399); Red Blood Count 3.55 10^6/uL (3.85-5.65); Red Cell Distribution Width 12.6 % (12.1-15.1); White Blood Count 13.56 10^3/uL (3.29-11.43)
[2023-09-05 08:09] LABS: Alanine Aminotransferase 6 U/L (0-41); Albumin Level 3.1 g/dL (3.5-5.2); Alkaline Phosphatase 151 U/L (40-130); Anion Gap 13.8 (5-19); Aspartate Amino Transferase 19 U/L (0-40); Blood Urea Nitrogen 16 mg/dL (8-23); Calcium 8.5 mg/dL (8.5-10.5); Carbon Dioxide 25 mmol/L (22-29); Chloride 104 mmol/L (98-107); Creatinine Clr Calc Pharmacy 84.3397; Globulin 3.2 g/dL (1.3-4.6); Glucose 147 mg/dL (65-115); Osmolality Calculated 292 mOsm/kg (285-295); Potassium 3.8 mmol/L (3.5-5.1); Sodium 139 mmol/L (136-145); Total Bilirubin 0.7 mg/dL (0.15-1.2); Total Protein 6.3 g/dL (6.6-8.7)
[2023-09-05] MEDS: metoprolol tartrate 50 mg Tablet PO (10:01)
[2023-09-05] MEDS: sennosides-docusate Tablet 1 TAB PO (10:01)
[2023-09-05] MEDS: levothyroxine 75 mcg Tablet PO (10:01)
--- NOTE | 2023-09-05 12:27 | PC.NUTR ---
Continue enteral nutrition via PEG following SNF regimen/RD recs below -bolus regimen: jevity 1.5 via PEG @ 360 mls boluses q6 with 50ml FWF before and after feeding. -continuous regimen: jevity 1.5 via PEG @60 ml/hr x24hrs with 150ml FWF q6 See most recent RD note for details
--- NOTE | 2023-09-05 13:19 | PC.NURSE ---
family updated pt dgtr in law natacha is on the list of authorize to release information. updated her about the plan and treatments such as PT and Speech eval. this nurse spoke to pt's son Aric yesterday in pt's room. and son said he is his dpoa. pt is aware and agreed that we can update his son. informed Natacha if she can update the son.
[2023-09-05 13:45] LABS: Partial Thromboplastin Time 62.6 SECONDS (23.9-36.7)
[2023-09-05] MEDS: heparin drip 25,000 UNIT/500 ML PREMIX 23 UNIT IV (14:43)
--- NOTE | 2023-09-05 14:59 | PC.NURSE ---
suction set up assisted pt back to bed from recliner w/a use of a walker. he has some SOb upon exertion. pt noted to have some secretion around mouth, oral care provided w/oral swab and suctioned PRN.
--- NOTE | 2023-09-05 18:23 | P.PN_ITS ---
Subjective 2 Subjective: Having chills and cough. Vitals/I&O/Wt Last Vital Signs Temp 98.3 F 09/05/23 14:40 Pulse 91 09/05/23 16:00 Resp 19 H 09/05/23 16:00 BP 93/69 09/05/23 16:00 Pulse Ox 94 09/05/23 16:00 O2 Del Method Room Air 09/05/23 16:00 O2 Flow Rate 3 09/05/23 14:40 09/05/23 09/05/23 09/05/23 06:59 14:59 22:59 Intake Total 1047.967 / 4954.202 0632.534 / 1053.534 Output Total 450 / 1850 500 / 500 Balance 597.967 / -742.574 7899.534 / 1053.534 -500 / 553.534 Weight last 48 hrs Weight 92.896 kg Weight 91.671 kg Weight 94.075 kg Weight 74.843 kg Physical Exam 2 Narrative: Sitting up in a chair Resting tremor Const: COMMON NORMALS: patient oriented x3 and alert GENERAL APPEARANCE: c ooperative and frail appearing ORIENTATION/CONSCIOUSNESS: Yes awake HENMT: COMMON NORMALS: oropharynx normal OTHER: Moderate to severe dysarthria Neck/C-Spine: COMMON NORMALS: no JVD Resp: COMMON NORMALS: normal respiratory effort and clear to auscultation bilaterally AUSCULTATION: clear to auscultation bilaterally Cardio: COMMON NORMALS: no JVD, regular rhythm, S1 normal heart sound present, S2 normal heart sound present and No murmurs present (Cardio) RHYTHM: regular rhythm HEART SOUNDS: S1 normal heart sound present and S2 normal heart sound present GI: COMMON NORMALS: Normal to inspection, nondistended, normoactive bowel sounds present, Soft to palpation and non-tender PALPATION: Yes Soft to palpation OTHER: PEG Extremity: COMMON NORMALS: no joint enlargement and no pedal edema Neuro: COMMON NORMALS: patient oriented x3 and moves all extremities S ENSORIUM/ORIENTATION: Yes alert Skin: COMMON NORMALS: no rashes or lesions noted GENERAL SKIN EXAM: no rashes or lesions noted Urinary Catheter Management: Goldstein: Cath Placed During This Visit: yes Reason for Continuing Indwelling Catheter: Other Urinary Catheter Date of Insertion: 09/04/23 Urinary Catheter Time of Insertion: 04:20 Data 03/30/24 07:46 09/05/23 07:46 A&P Assessment and plan (1) Pulmonary embolism: (2) Parkinson's Disease: Qualifiers: Dyskinesia presence: without dyskinesia Fluctuating manifestations: w ith fluctuating manifestations Qualified Code(s): G20.A2 - Parkinson's disease without dyskinesia, with fluctuations (3) Shortness of breath: (4) Edema: Plan PE: Reviewed vitals, CBC, PTT, CMP, COVID PCR viral panel, echocardiogram. This afternoon developed some hemoptysis mixed into phlegm with cough. Likely bronchitis secondary to RSV. But does have PE as well which can also cause hemoptysis. Humidifier to oxygen. Continue heparin drip anticoagulation, at risk of bleeding, hold off on switch to oral anticoagulant for now in case of need to pause anticoagulation. Venous duplex reviewed, noted bilateral DVT. Intermediate risk PE complicated systemic symptoms with new oxygen dependence/hypoxia. Not normally on oxygen. Soft blood pressure, suspicion of right heart strain on CT, reviewed echocardiogram, no right heart strain. Minimal congestive heart failure. Blood pressure soft, hold off diuretics. Additionally with PE, new oxygen requirement, will need further rehabilitation. Discussed with welfare case worker. PT, OT. Will need extension of stay at SNF. RSV infection: Having chills, cough. With some hemoptysis. Will add breathing treatments. Humidifier added to oxygen. A-fib RVR did not tolerate Cardizem very well, blood pressure soft, continued. Restarted on home dose metoprolol 50 mg twice daily, so far doing better. Monitor heart rate. At risk of shock. Monitor on telemetry Patient is hypothyroid as well Subtherapeutic INR on warfarin. Acute CHF exacerbation EF is unknown Echo: Normal ejection fraction, left atrial dilation, mild TVR, mild pulmonary hypertension. Dilation of ascending aorta 3.7 cm. Follow-up with primary provider. Not hypertensive at current time. Hold additional Lasix for now given preload dependence. Risk of cardiogenic and obstructive shock. Acute hypoxia requiring 3 L Does not use oxygen at the half-way Parkinson's disease continue Carbidopa/levodopa, short acting formulation ordered to allow administration through PEG tube. Prior hospitalization recently after a fall, facial trauma, transient need for tracheostomy which was removed. PEG tube was placed during same hospitalization. Patient is DNR/DNI Not found safe to try anything by mouth per discussion with speech therapist. NPO. Tube feeds restarted. Attestations 2 Medical Necessity Statement*: Continue admission for assessment and management of PE complicated by new hypoxia, as well as bronchitis with RSV infection in a gentleman with PE diagnosis, bilateral DVT, additional comorbidities as above. and High MDM includes described risk of complication, morbidity or mortality of management as documented Diagnoses Pulmonary embolism I26.99 Parkinson's disease without dyskinesia, with fluctuating manifestations G20.A2 Dyskinesia presence: without dyskinesia Fluctuating manifestations: with fluctuating manifestations Shortness of breath R06.02 Edema R60.9
[2023-09-05 19:59] LABS: Partial Thromboplastin Time 49.1 SECONDS (23.9-36.7)
[2023-09-05] MEDS: ipratropium-albuterol 3 mL Neb INHALATION (20:37)
[2023-09-05] MEDS: metoprolol tartrate 50 mg Tablet PEG-TUBE (22:00)
[2023-09-05] MEDS: carbidopa-levodopa 25-250mg Tablet 2 EACH PEG-TUBE (22:00)
[2023-09-05 22:02] LABS: Partial Thromboplastin Time 62.6 SECONDS (23.9-36.7)
[2023-09-06] VITALS (34 sets, daily range): BP systolic 87–114; BP diastolic 57–80; PULSE 84–118; RESP 18–43; TEMP 36.7–37; O2SAT 81–94
[2023-09-06] MEDS: ipratropium-albuterol 3 mL Neb INHALATION ×4 (01:54→20:32)
[2023-09-06 03:45] LABS: Basophils % 0.2 %; Eosinophils % 0.3 %; Hematocrit 32.5 % (37-53); Lymphocytes # 1.3 10^3/uL (0.8-4.8); Lymphocytes % 10.9 %; Mean Corpuscular HGB Conc 33.2 g/dL (30-55); Mean Corpuscular Hemoglobin 31.4 pg (27-33); Mean Corpuscular Volume 94.5 fl (82-101); Mean Platelet Volume 9.4 fL (7.4-10.4); Monocytes # 1.7 10^3/uL (0.2-0.9); Monocytes % 14.2 %; Neutrophils # 8.87 10^3/uL (1.8-7.7); Neutrophils % 73.9 %; Nucleated Red Blood Cells % 0 %; Platelet Count 170 10^3/cmm (157-399); Red Blood Count 3.44 10^6/uL (3.85-5.65); Red Cell Distribution Width 12.6 % (12.1-15.1); White Blood Count 11.99 10^3/uL (3.29-11.43)
[2023-09-06 03:58] LABS: Partial Thromboplastin Time 57.9 SECONDS (23.9-36.7)
[2023-09-06 04:09] LABS: Alanine Aminotransferase 21 U/L (0-41); Albumin Level 2.7 g/dL (3.5-5.2); Alkaline Phosphatase 191 U/L (40-130); Anion Gap 13.5 (5-19); Aspartate Amino Transferase 40 U/L (0-40); Blood Urea Nitrogen 16 mg/dL (8-23); Calcium 8.3 mg/dL (8.5-10.5); Carbon Dioxide 25 mmol/L (22-29); Chloride 104 mmol/L (98-107); Creatinine Clr Calc Pharmacy 84.3397; Globulin 3.6 g/dL (1.3-4.6); Glucose 136 mg/dL (65-115); Osmolality Calculated 291 mOsm/kg (285-295); Potassium 3.5 mmol/L (3.5-5.1); Sodium 139 mmol/L (136-145); Total Bilirubin 0.6 mg/dL (0.15-1.2); Total Protein 6.3 g/dL (6.6-8.7)
[2023-09-06] MEDS: levothyroxine 75 mcg Tablet PEG-TUBE (06:38)
[2023-09-06] MEDS: metoprolol tartrate 50 mg Tablet PEG-TUBE ×2 (10:10→20:47)
[2023-09-06] MEDS: sennosides-docusate Tablet 1 TAB PEG-TUBE (10:11)
[2023-09-06] MEDS: carbidopa-levodopa 25-250mg Tablet 2 EACH PEG-TUBE ×3 (10:11→20:47)
--- NOTE | 2023-09-06 10:21 | XRR_ITS ---
PROCEDURE INFORMATION: Exam: XR Chest Exam date and time: 09/06/2023 10:47 AM Age: 82 years old Clinical indication: Cough and other: Hypoxia; Prior surgery; Surgery date: 6+ months; Surgery type: Pacemaker 2016; Patient HX: Hypoxia; Assess for congestive changes; Afib; HX pacemaker insertion 2016 TECHNIQUE: Imaging protocol: Radiologic exam of the chest. Views: 1 view. COMPARISON: CT angio chest PE protcl [id number] 09/03/2023 6:31 PM FINDINGS: Tubes, catheters and devices: Bilateral anterior chest wall electronic devices, with a single lead left cardiac pacer. Lungs: Right middle lobe and left lower lobe patchy to confluent opacities, similar appearance was seen on prior imaging dated 09/03/2023. Pleural spaces: No pneumothorax, mild blunting of the right costophrenic angle . Heart/Mediastinum: Unremarkable. No cardiomegaly. Bones/joints: Unremarkable. XR/XR chest 1V portable [id number] IMPRESSION: Right middle lobe and left lower lobe ongoing patchy to confluent opacities, similar appearance was seen on prior imaging dated 09/03/2023.
[2023-09-06] MEDS: potassium chloride oral liq 20 mEq/15 mL UDC 40 MEQ PEG-TUBE (12:06)
[2023-09-06 16:21] LABS: Partial Thromboplastin Time 28.6 SECONDS (23.9-36.7)
[2023-09-06] MEDS: heparin 5,000 unit/mL INJ 1 mL IV (17:39)
[2023-09-06] MEDS: heparin drip 25,000 UNIT/500 ML PREMIX 27 UNIT IV (17:43)
--- NOTE | 2023-09-06 20:05 | P.PN_ITS ---
Subjective 2 Subjective: He feels he is doing slightly better. Less bothered by cough. No recurrence of hemoptysis. Vitals/I&O/Wt Last Vital Signs Temp 98.2 F 09/06/23 19:56 Pulse 107 H 09/06/23 19:56 Resp 22 H 09/06/23 19:56 BP 102/60 09/06/23 19:56 Pulse Ox 93 09/06/23 19:56 O2 Del Method Nasal Cannula 09/06/23 19:56 O2 Flow Rate 4 09/06/23 16:00 09/06/23 09/06/23 09/06/23 06:59 14:59 22:59 Intake Total 725.867 / 3856.734 191.8 / 191.8 864 / 1055.8 Output Total 325 / 1050 300 / 300 Balance 400.867 / 2806.734 -108.2 / -108.2 864 / 755.8 Weight last 48 hrs Weight 92.215 kg Weight 92.896 kg Physical Exam 2 Narrative: Sitting up in bed Resting tremor Const: COMMON NORMALS: patient oriented x3 and alert GENERAL APPEARANCE: c ooperative and frail appearing ORIENTATION/CONSCIOUSNESS: Yes awake HENMT: COMMON NORMALS: oropharynx normal OTHER: Moderate to severe dysarthria Neck/C-Spine: COMMON NORMALS: no JVD Resp: COMMON NORMALS: normal respiratory effort and clear to auscultation bilaterally AUSCULTATION: clear to auscultation bilaterally Cardio: COMMON NORMALS: no JVD, regular rhythm, S1 normal heart sound present, S2 normal heart sound present and No murmurs present (Cardio) RHYTHM: regular rhythm HEART SOUNDS: S1 normal heart sound present and S2 normal heart sound present GI: COMMON NORMALS: Normal to inspection, nondistended, normoactive bowel sounds present, Soft to palpation and non-tender PALPATION: Yes Soft to palpation OTHER: PEG Extremity: COMMON NORMALS: no joint enlargement and no pedal edema Neuro: COMMON NORMALS: patient oriented x3 and moves all extremities S ENSORIUM/ORIENTATION: Yes alert Skin: COMMON NORMALS: no rashes or lesions noted GENERAL SKIN EXAM: no rashes or lesions noted Urinary Catheter Management: Goldstein: Cath Placed During This Visit: yes Reason for Continuing Indwelling Catheter: Accurate Measurement of Urinary Output in Critically Ill Patients Urinary Catheter Date of Insertion: 09/04/23 Urinary Catheter Time of Insertion: 04:20 Data 09/06/23 03:30 09/06/23 03:30 A&P Assessment and plan (1) Pulmonary embolism: (2) Parkinson's Disease: Qualifiers: Dyskinesia presence: without dyskinesia Fluctuating manifestations: w ith fluctuating manifestations Qualified Code(s): G20.A2 - Parkinson's disease without dyskinesia, with fluctuations (3) Shortness of breath: (4) Edema: Plan PE: Reviewed vitals, CBC, PT, CMP. Hemoptysis so far resolved. Anticoagulation with heparin drip. Monitor for any bleeding, at risk with anticoagulation. If no further hemoptysis consider switch to Eliquis which will be covered by his insurance. 09/04 afternoon developed some hemoptysis mixed into phlegm with cough. Likely bronchitis secondary to RSV. But does have PE as well which can also cause hemoptysis. Humidifier to oxygen. On review hemoglobin with minimal decrease to 10.8. Platelets reviewed, normal. Recheck CBC. Venous duplex w bilateral DVT. Intermediate risk PE complicated systemic symptoms with new oxygen dependence/hypoxia. Not normally on oxygen. Soft blood pressure, suspicion of right heart strain on CT, on echocardiogram no right heart strain. Minimal congestive heart failure. Blood pressure soft, hold off diuretics. Additionally with PE, new oxygen requirement, will need further rehabilitation. Discussed with case reviewer. PT, OT. Will need extension of stay at SNF. RSV infection: Hemoptysis so far resolved today. Having chills, cough. With some hemoptysis on 09/04. Continue breathing treatments. Humidifier added to oxygen. A-fib RVR did not tolerate Cardizem very well, blood pressure soft, continued. Reviewed BMP, noted potassium low at 3.5. Requested replacement. Recheck chemistry. Restarted on home dose metoprolol 50 mg twice daily, so far doing better. Monitor heart rate. At risk of shock. Monitor on telemetry Patient is hypothyroid as well Subtherapeutic INR on warfarin. Acute CHF exacerbation EF is unknown Echo: Normal ejection fraction, left atrial dilation, mild TVR, mild pulmonary hypertension. Dilation of ascending aorta 3.7 cm. Follow-up with primary provider. Not hypertensive at current time. Hold additional Lasix for now given preload dependence. Risk of cardiogenic and obstructive shock. Acute hypoxia requiring 4 L Does not use oxygen at the senior living Parkinson's disease continue Carbidopa/levodopa, short acting formulation ordered to allow administration through PEG tube. Prior hospitalization recently after a fall, facial trauma, transient need for tracheostomy which was removed. PEG tube was placed during same hospitalization. Patient is DNR/DNI Not found safe to try anything by mouth per discussion with speech therapist. NPO. Tube feeds restarted. Attestations 2 Medical Necessity Statement*: Continue admission for assessment and management of PE complicated by new hypoxia, hemoptysis, as well as bronchitis with RSV infection in a gentleman with PE diagnosis, bilateral DVT, additional comorbidities as above. Diagnoses Pulmonary embolism I26.99 Parkinson's disease without dyskinesia, with fluctuating manifestations G20.A2 Dyskinesia presence: without dyskinesia Fluctuating manifestations: with fluctuating manifestations Shortness of breath R06.02 Edema R60.9
[2023-09-07] VITALS (31 sets, daily range): BP systolic 86–128; BP diastolic 60–80; PULSE 90–117; RESP 16–35; TEMP 36.4–36.9; O2SAT 85–96
[2023-09-07 00:03] LABS: Partial Thromboplastin Time 17.5 SECONDS (23.9-36.7)
[2023-09-07] MEDS: heparin 5,000 unit/mL INJ 1 mL IV (00:37)
[2023-09-07] MEDS: ipratropium-albuterol 3 mL Neb INHALATION ×2 (02:51→07:53)
[2023-09-07 06:17] LABS: Basophils % 0.1 %; Eosinophils # 0.1 10^3/uL (0.0-0.8); Eosinophils % 0.9 %; Hematocrit 28.8 % (37-53); Lymphocytes % 9.7 %; Mean Corpuscular HGB Conc 33.7 g/dL (30-55); Mean Corpuscular Hemoglobin 31.3 pg (27-33); Mean Corpuscular Volume 92.9 fl (82-101); Mean Platelet Volume 9.2 fL (7.4-10.4); Monocytes # 1.1 10^3/uL (0.2-0.9); Monocytes % 10.3 %; Neutrophils # 8.25 10^3/uL (1.8-7.7); Neutrophils % 78.4 %; Nucleated Red Blood Cells % 0 %; Platelet Count 168 10^3/cmm (157-399); Red Cell Distribution Width 12.7 % (12.1-15.1); White Blood Count 10.51 10^3/uL (3.29-11.43)
[2023-09-07 06:42] LABS: Partial Thromboplastin Time 105.1 SECONDS (23.9-36.7)
[2023-09-07] MEDS: levothyroxine 75 mcg Tablet PEG-TUBE (06:46)
[2023-09-07 06:52] LABS: Alanine Aminotransferase 46 U/L (0-41); Albumin Level 2.6 g/dL (3.5-5.2); Alkaline Phosphatase 169 U/L (40-130); Anion Gap 12.9 (5-19); Aspartate Amino Transferase 55 U/L (0-40); Blood Urea Nitrogen 14 mg/dL (8-23); Calcium 8.2 mg/dL (8.5-10.5); Carbon Dioxide 24 mmol/L (22-29); Chloride 106 mmol/L (98-107); Globulin 3.3 g/dL (1.3-4.6); Glucose 147 mg/dL (65-115); Osmolality Calculated 291 mOsm/kg (285-295); Potassium 3.9 mmol/L (3.5-5.1); Sodium 139 mmol/L (136-145); Total Bilirubin 0.4 mg/dL (0.15-1.2); Total Protein 5.9 g/dL (6.6-8.7)
[2023-09-07 06:53] LABS: Creatinine Clr Calc Pharmacy 83.8193
[2023-09-07] MEDS: metoprolol tartrate 50 mg Tablet PEG-TUBE ×2 (08:28→20:41)
[2023-09-07] MEDS: sennosides-docusate Tablet 1 TAB PEG-TUBE (08:28)
[2023-09-07] MEDS: carbidopa-levodopa 25-250mg Tablet 2 EACH PEG-TUBE ×3 (08:28→20:40)
--- NOTE | 2023-09-07 09:25 | PC.CHAP ---
Pastoral Care Encounter/Spiritual Assessment Type of Contact [] Declined it security project manager visit [] Patient/Family/Request visit [] Outpatient visit [] Follow-up visit [] Physician referral [] Code/Alert [x] Routine visit [] Staff referral [] Actively dying [] Patient sleeping [] Family support [] [] Out of room [] Palliative care [] [] Receiving care in room [] Pre-surgical visit [] Trauma [] Long length of stay [] ICU visit [] Other: Relational/Emotional Strength [] Patient feels connected with others/family/visitors/staff [] Distress [] Loneliness/isolation [] Abandonment Spirituality of Patient [] Person of Jesenia [] Attends Tenriism of their Jesenia [] Believes in Prayer [] Reads Bible or Jewish materials [] There are Spiritual issues to be addressed Mechanic General Operational Test Interventions [x] Prayer [] Active listening [] Non-anxious presence [] Spiritual/emotional support [] Crisis/trauma care [] Spiritual counseling [] Bereavement support [] Provided bereavement packet [] Provided Bible/devotional materials [] Provided toy/stuffed animal, coloring book to patient or family member [] Provided Communion [] Anointing/[place] [] Salvation [x] Completed spiritual assessment [] Other: Impact on Illness or Injury [] Angry [] Fearful [] Anxious [] Often cries [] Exhaustion [] Unable to work [] Unable to attend bahai [] Unable to walk/stand [] Unable to read [] Unable to drive [] Unable to eat/drink [] Unable to sleep [] Unable to be with family [] Patient intubated [] Other: Summary precaution Time spent with patient
[2023-09-07 09:28] LABS: ABG PCO2 31.7 mmHg (35-45); Arterial Blood Gas Hematocrit 32.1 % (42-52); Base Excess ABG 2.1 mmol/L (-2.0-2.0); Blood Gas Allen Test Pos; Blood Gas Operator Identificat WALCI; Blood Gas Sample Site Radial, left; Blood Gas Sample Type Arterial; HCO3 ABG 24.9 mmol/L (22-26); Oxygen Device NC; PO2 ABG 56.4 mmHg (80.0-100.0)
--- NOTE | 2023-09-07 09:53 | CT_ITS ---
WS: [id number] CT CHEST ANGIOGRAPHY WITH REFORMATS HISTORY: pe, worsening resp failure TECHNIQUE: Contiguous axial images are obtained through the chest during arterial injection of intrav enous contrast. Images are reconstructed to evaluate the pulmonary arteries. MIP imaging also reviewe d. All CT scans at [facility] use at least one of these dose optimization techniques: automat ed exposure control; mA and/or kV adjustment per patient size (includes targeted exams where dose is matched to clinical indication); or iterative reconstruction. CONTRAST: Omnipaque 350; 100 mL IV. DLP: 408.99 mGy.cm COMPARISON: 09/03/2023 Good opacification of the pulmonary arteries. Beginning in the distal RIGHT main pulmonary artery ar e large filling defects. These abdominally extend into the RIGHT upper lobe pulmonary artery with ext ension into the proximal RIGHT middle lobe pulmonary artery. No definite bilateral lower lobe pulmona ry emboli. Very small RIGHT pleural effusion. Bibasilar areas of atelectasis and consolidation. There is consoli dation and groundglass attenuation bilaterally. There is additional groundglass attenuation and subso lid consolidation extending into the RIGHT middle lobe and RIGHT upper lobes. Lesser opacification LE FT upper lobe. Moderate enlargement of the heart. Mild RIGHT heart strain persists. No pericardial effusion. Mediast inal and hilar lymph nodes are enlarged. RIGHT hilar lymph node 1.6 cm. Subcarinal lymph nodes are en larged. Mild ectasia and atherosclerosis aorta. Small hiatal hernia. Mild esophageal thickening at the GE junction. No adrenal mass. Visualized liver is negative. IMPRESSION: 1. Persistent pulmonary emboli in the distal RIGHT main pulmonary artery extending into the proximal RIGHT upper and RIGHT middle lobes. LEFT pulmonary embolic burden in the main RIGHT pulmonary artery . 2. Worsening areas of bilateral consolidation and groundglass attenuation. Probably a combination of pneumonia, atelectasis and edema. 3. Small RIGHT pleural effusion with minimal progression. 4. Mild RIGHT heart strain. 5. Reactive mediastinal and hilar lymph nodes.
--- NOTE | 2023-09-07 09:59 | PC.SOCIAL ---
IMM Update pg 2 of IMM updated and reviewed w/ patient. Copy provided and copy dated, initialed and placed in chart.
[2023-09-07 10:24] LABS: Iron 19 ug/dL (59-158); Percent Saturation 15.9 % (20-50); Total Iron Binding Capacity 119 mcg/dl; Unsaturated Iron Binding 100 ug/dL (112-347)
[2023-09-07 10:31] LABS: Procalcitonin 0.15 ng/mL (0-0.5)
[2023-09-07] MEDS: iohexol 350 mg/mL 500 mL Btl (per mL) IV (10:58)
[2023-09-07] MEDS: budesonide 0.5 mg/2 mL Neb INHALATION ×2 (11:09→19:52)
--- NOTE | 2023-09-07 11:13 | PC.OT ---
hold OT treatment today as respiratory has just placed the patient on heated high flow O2 and requests that treatment be held.
[2023-09-07] MEDS: methylPREDNISolone sod succ 40 mg/mL INJ IVP ×3 (12:06→22:28)
[2023-09-07] MEDS: heparin drip 25,000 UNIT/500 ML PREMIX 27 UNIT IV (12:12)
[2023-09-07] MEDS: levalbuterol 0.63 mg/3 mL Neb 0.630000000000000004 MG INHALATION ×2 (13:12→19:53)
[2023-09-07] MEDS: ipratropium 0.5 mg/2.5 mL Neb INHALATION ×2 (13:12→19:52)
[2023-09-07] MEDS: FUROsemide 10 mg/mL SDV 4mL 40 MG IVP (13:25)
--- NOTE | 2023-09-07 13:42 | P.PN_ITS ---
Subjective 2 Subjective: Hospital course, labs appreciated. Seen multiple times today. Today morning on examination patient was in respiratory distress requiring up to 12 L of high flow nasal cannula. He was later transitioned over to heated high flow. Patient states he is feeling okay. Denies any nausea, vomiting, headache. On examination patient is tachycardic with a blood pressure of 90 systolics. Later in the day when seen again he was on 50 L 75% oxygen supplementation saturating around 95% heart rate settling down to 100 with blood pressure 120 over 80 mmHg. Vitals/I&O/Wt Last Vital Signs Temp 98.4 F 09/07/23 04:00 Pulse 101 H 09/07/23 12:49 Resp 18 09/07/23 12:49 BP 110/64 09/07/23 11:00 Pulse Ox 96 09/07/23 12:49 O2 Del Method Heated High Flow 09/07/23 12:49 O2 Flow Rate 50 09/07/23 12:49 FiO2 80 09/07/23 12:49 09/06/23 09/07/23 09/07/23 22:59 06:59 14:59 Intake Total 864 / 1055.8 1347.6 / 2403.4 118.4 / 118.4 Output Total 200 / 500 300 / 800 Balance 664 / 555.8 1047.6 / 1603.4 118.4 / 118.4 Weight last 48 hrs Weight 91.626 kg Weight 92.215 kg Physical Exam 2 Narrative: General: No acute distress, AO x3, chronically sick appearing HEENT: PERRLA, pupils bilaterally equal and reactive Chest: Bilateral bronchial breath sounds, coarse crackles present in right lower and middle zone, left lower zone, decreased air entry left lower zone, occasional rhonchi CVS: S1-S2 regular, no murmurs, tachycardia, no gallops, no rubs Abdomen: Soft, nontender, no organomegaly, bowel sounds present Neuro: No focal deficits, no facial deformity, AO x3, power 5/5 in all limbs Urinary Catheter Management: Goldstein: Cath Placed During This Visit: yes Reason for Continuing Indwelling Catheter: Accurate Measurement of Urinary Output in Critically Ill Patients Urinary Catheter Date of Insertion: 09/04/23 Urinary Catheter Time of Insertion: 04:20 Data 09/07/23 06:11 09/07/23 06:11 A&P Assessment and plan (1) Respiratory failure: (2) Pulmonary embolism: (3) Bilateral pneumonia: (4) Rhinovirus infection: (5) Parkinson's Disease: Qualifiers: Dyskinesia presence: without dyskinesia Fluctuating manifestations: w ith fluctuating manifestations Qualified Code(s): G20.A2 - Parkinson's disease without dyskinesia, with fluctuations (6) Shortness of breath: (7) Edema: (8) On tube feeding diet: Plan Respiratory failure: Most likely in setting of rhinovirus infection leading to COPD exacerbation, acute bilateral pulmonary embolism along with possibility of pneumonia. Worsening today. Went up to heated high flow. Oxygen supplementation keeping saturation over 90%. Changed to ipratropium and Xopenex every 6 hours because of tachycardia, start on Pulmicort twice daily. Start on Solu-Medrol 40 mg IV every 6 hourly. Will wean aggressively as soon as possible. Given worsening tachycardia, respiratory status, bilateral DVTs on admission cannot rule out worsening PE burden. Repeat CTA. Echocardiogram on admission showed EF 55 to 60% with dilated LA, mild MR with mild pulmonary hypertension without concerns for RV strain. Cannot rule out aspiration pneumonia. Check procalcitonin, sputum culture, urine Legionella, bacterial antigen. Because patient is having worsening respiratory failure for now start empirically on IV Zosyn and vancomycin. Will discontinue vancomycin if MRSA swab negative. IV Lasix 40 mg one-time. Monitor renal functions. Strict input output charting. Daily weights. Aggressive pulmonary toilet with I-S and Acapella. If needed will start on chest vest. Start on Mucomyst. Pulmonary embolism: CTA as above. Patient's creatinine has been stable. Switch from heparin drip to Lovenox 1 mg/kg body weight every 12 hourly. Patient will be discharged on NOACs. A-fib with RVR: Tachycardic for now. Switching from DuoNeb to ipratropium and Xopenex as above. Continue with home dose of metoprolol 50 mg twice daily. Anticoagulation as above. Parkinson's disease continue Carbidopa/levodopa, short acting formulation ordered to allow administration through PEG tube. Prior hospitalization recently after a fall, facial trauma, transient need for tracheostomy which was removed. PEG tube was placed during same hospitalization. Patient is DNR/DNI Continue tube feeds. Decrease rate to 45 cc/h for now given concerns for aspiration. Protonix for PUD prophylaxis Attestations 2 Medical Necessity Statement*: Requires further hospitalization for management of respiratory failure in setting of pulm embolism, COPD exacerbation from rhinovirus infection, bilateral pneumonia with concerns for aspiration Diagnoses Respiratory failure J96.90 Pulmonary embolism I26.99 Bilateral pneumonia J18.9 Rhinovirus infection B34.8 Parkinson's disease without dyskinesia, with fluctuating manifestations G20.A2 Dyskinesia presence: without dyskinesia Fluctuating manifestations: with fluctuating manifestations Shortness of breath R06.02 Edema R60.9 On tube feeding diet Z78.9
[2023-09-07 13:47] LABS: Partial Thromboplastin Time 47.4 SECONDS (23.9-36.7)
[2023-09-07] MEDS: vancomycin 1,500 MG/300 ML PIGGYBACK 200 MG IV (15:29)
[2023-09-07] MEDS: piperacillin-tazobactam 3.375 GM in sodium chloride 0.9% (plus) 50 ML IV ×2 (15:31→22:28)
[2023-09-07] MEDS: enoxaparin 100 mg/mL Syringe 90 MG SUBCUT (18:04)
[2023-09-07 18:29] LABS: Add Urine Culture? No; Add Urine Microscopic? YES; Bacteria Urine TRACE /hpf; Bilirubin Urine Neg (Negative); Blood Urine 2+ (Negative); Glucose Urine UA Norm (Normal); Ketones Urine Negative (Negative); Leukocyte Esterase Urine Negative (Negative); Nitrate Urine Negative (Negative); Protein Urine Neg (Negative); Specific Gravity, Urine 1.005 (1.005-1.030); Urine Appearance Clear (CLEAR); Urine Color Straw (Yellow); Urobilinogen Urine Norm (Negative); pH Urine 7 (5-7)
[2023-09-08] VITALS (23 sets, daily range): BP systolic 98–114; BP diastolic 66–76; PULSE 81–109; RESP 16–29; TEMP 36.6–37; O2SAT 89–96
[2023-09-08] MEDS: levalbuterol 0.63 mg/3 mL Neb 0.630000000000000004 MG INHALATION ×4 (02:17→20:07)
[2023-09-08] MEDS: ipratropium 0.5 mg/2.5 mL Neb INHALATION ×4 (02:17→20:07)
[2023-09-08] MEDS: vancomycin 1,500 MG/300 ML PIGGYBACK 200 MG IV ×2 (02:31→14:32)
[2023-09-08 03:54] LABS: Basophils % 0.1 %; Hematocrit 31.6 % (37-53); Lymphocytes # 0.8 10^3/uL (0.8-4.8); Lymphocytes % 5.8 %; Mean Corpuscular HGB Conc 32.9 g/dL (30-55); Mean Corpuscular Hemoglobin 30.6 pg (27-33); Mean Corpuscular Volume 92.9 fl (82-101); Mean Platelet Volume 9.8 fL (7.4-10.4); Monocytes # 0.4 10^3/uL (0.2-0.9); Monocytes % 3.2 %; Neutrophils # 12.08 10^3/uL (1.8-7.7); Neutrophils % 90.3 %; Nucleated Red Blood Cells % 0 %; Platelet Count 240 10^3/cmm (157-399); Red Cell Distribution Width 12.5 % (12.1-15.1); White Blood Count 13.38 10^3/uL (3.29-11.43)
[2023-09-08 04:09] LABS: Estmated Average Glucose 88; Hemoglobin A1C 4.7 % (4.0-6.0)
[2023-09-08 04:21] LABS: Alanine Aminotransferase 65 U/L (0-41); Albumin Level 2.8 g/dL (3.5-5.2); Alkaline Phosphatase 239 U/L (40-130); Aspartate Amino Transferase 61 U/L (0-40); Blood Urea Nitrogen 20 mg/dL (8-23); Calcium 8.8 mg/dL (8.5-10.5); Carbon Dioxide 22 mmol/L (22-29); Chloride 104 mmol/L (98-107); Chol HDL Ratio 3.33 mg/dL (1.0-5.00); Cholesterol 110 mg/dL (0-200); Creatinine Clr Calc Pharmacy 83.8193; Globulin 3.9 g/dL (1.3-4.6); Glucose 190 mg/dL (65-115); HDL Cholesterol 33 mg/dL (60-100); LDL Cholesterol Calculated 66 mg/dL (50-129); Magnesium 2.2 mg/dL (1.7-2.3); Osmolality Calculated 296 mOsm/kg (285-295); Phosphorus 2.7 mg/dL (2.5-4.5); Sodium 139 mmol/L (136-145); Total Bilirubin 0.5 mg/dL (0.15-1.2); Total Protein 6.7 g/dL (6.6-8.7); Triglycerides 54 mg/dL (0-150); VLDL Cholestrol Calculation 11 mg/dL (0-30)
[2023-09-08] MEDS: methylPREDNISolone sod succ 40 mg/mL INJ IVP ×4 (04:26→21:31)
[2023-09-08] MEDS: enoxaparin 100 mg/mL Syringe 90 MG SUBCUT ×2 (04:26→16:06)
[2023-09-08] MEDS: piperacillin-tazobactam 3.375 GM in sodium chloride 0.9% (plus) 50 ML IV ×3 (04:26→21:31)
[2023-09-08 04:31] LABS: Folate Level 13.5 ng/mL (4.5-32.2)
[2023-09-08] MEDS: budesonide 0.5 mg/2 mL Neb INHALATION ×2 (07:34→20:07)
[2023-09-08] MEDS: carbidopa-levodopa 25-250mg Tablet 2 EACH PEG-TUBE ×3 (08:51→21:31)
[2023-09-08] MEDS: sennosides-docusate Tablet 1 TAB PEG-TUBE (08:51)
[2023-09-08] MEDS: levothyroxine 75 mcg Tablet PEG-TUBE (08:51)
[2023-09-08] MEDS: metoprolol tartrate 50 mg Tablet PEG-TUBE ×2 (08:51→21:31)
--- NOTE | 2023-09-08 09:43 | PC.CHAP ---
Pastoral Care Encounter/Spiritual Assessment Type of Contact [] Declined mortgage closing clerk visit [] Patient/Family/Request visit [] Outpatient visit [] Follow-up visit [] Physician referral [] Code/Alert [] Routine visit [] Staff referral [] Actively dying [] Patient sleeping [] Family support [] [] Out of room [] Palliative care [] [] Receiving care in room [] Pre-surgical visit [] Trauma [] Long length of stay [] ICU visit [x] Other:Contact precautions. No visit. Relational/Emotional Strength [] Patient feels connected with others/family/visitors/staff [] Distress [] Loneliness/isolation [] Abandonment Spirituality of Patient [] Person of Jesenia [] Attends Confucianist of their Jesenia [] Believes in Prayer [] Reads Bible or Yazdanism materials [] There are Spiritual issues to be addressed National Sales Director Interventions [] Prayer [] Active listening [] Non-anxious presence [] Spiritual/emotional support [] Crisis/trauma care [] Spiritual counseling [] Bereavement support [] Provided bereavement packet [] Provided Bible/devotional materials [] Provided toy/stuffed animal, coloring book to patient or family member [] Provided Communion [] Anointing/[place] [] Salvation [] Completed spiritual assessment [] Other: Impact on Illness or Injury [] Angry [] Fearful [] Anxious [] Often cries [] Exhaustion [] Unable to work [] Unable to attend restoration [] Unable to walk/stand [] Unable to read [] Unable to drive [] Unable to eat/drink [] Unable to sleep [] Unable to be with family [] Patient intubated [] Other: Summary Time spent with patient
--- NOTE | 2023-09-08 09:55 | P.PN_ITS ---
Subjective 2 Subjective: No acute events overnight. Today morning patient seen laying comfortably in bed. He is currently on 45 to 53% of oxygen saturating in low 90s. Has remained stable and afebrile with tachycardia at rest. Vitals/I&O/Wt Last Vital Signs Temp 98.6 F 09/08/23 08:52 Pulse 105 H 09/08/23 08:49 Resp 21 H 09/08/23 08:49 BP 107/73 09/08/23 08:49 Pulse Ox 92 09/08/23 08:49 O2 Del Method Heated High Flow 09/08/23 08:49 O2 Flow Rate 45 09/08/23 08:49 FiO2 54 09/08/23 08:49 09/07/23 09/08/23 09/08/23 22:59 06:59 14:59 Intake Total 450 / 2600.4 400.000 / 3000.400 Output Total 2100 / 2700 800 / 3500 Balance -1650 / -99.6 -400.000 / -499.600 Weight last 48 hrs Weight 91.314 kg Weight 91.626 kg Physical Exam 2 Narrative: General: No acute distress, AO x3, chronically sick appearing HEENT: PERRLA, pupils bilaterally equal and reactive Chest: Bilateral bronchial breath sounds, coarse crackles present in right lower and middle zone, left lower zone, decreased air entry left lower zone, occasional rhonchi CVS: S1-S2 regular, no murmurs, tachycardia, no gallops, no rubs Abdomen: Soft, nontender, no organomegaly, bowel sounds present Neuro: No focal deficits, no facial deformity, AO x3, power 5/5 in all limbs Urinary Catheter Management: Goldstein: Cath Placed During This Visit: yes Reason for Continuing Indwelling Catheter: Accurate Measurement of Urinary Output in Critically Ill Patients Urinary Catheter Date of Insertion: 09/04/23 Urinary Catheter Time of Insertion: 04:20 Data 09/08/23 03:02 09/08/23 03:02 Micro: Microbiology 09/07/23 15:45 Bacterial Antigens - Final Urine Kidney 09/07/23 15:45 Legionella Urinary Antigen - Final Unknown Source A&P Assessment and plan (1) Respiratory failure: (2) Pulmonary embolism: (3) Bilateral pneumonia: (4) Rhinovirus infection: (5) Parkinson's Disease: Qualifiers: Dyskinesia presence: without dyskinesia Fluctuating manifestations: w ith fluctuating manifestations Qualified Code(s): G20.A2 - Parkinson's disease without dyskinesia, with fluctuations (6) Shortness of breath: (7) Edema: (8) On tube feeding diet: Plan Respiratory failure: Most likely in setting of rhinovirus infection leading to COPD exacerbation, acute bilateral pulmonary embolism along with possibility of pneumonia. Continue to wean heated high flow keeping saturation over 90%. Continue with ipratropium and Xopenex every 6 hours, Pulmicort twice daily. Continue with Mucomyst Continue with Solu-Medrol 40 mg IV every 6 hourly. Hold off on being for now. Appreciate repeat CTA. Consistent with persistent bilateral PEs Echocardiogram on admission showed EF 55 to 60% with dilated LA, mild MR with mild pulmonary hypertension without concerns for RV strain. Cannot rule out aspiration pneumonia. Procalcitonin negative, sputum culture pending, urine Legionella and bacterial antigen negative. Because patient is having worsening respiratory failure for now start empirically on IV Zosyn and vancomycin. Will discontinue vancomycin if MRSA swab negative. Repeat IV Lasix 40 mg one-time. Monitor renal functions. Strict input output charting. Daily weights. Aggressive pulmonary toilet with I-S and Acapella. Pulmonary embolism: CTA as above. Lovenox 1 mg/kg body weight 12 hourly. Will discharge on NOACs. A-fib with RVR: Continues to be tachycardic. Start on amiodarone drip after bolus. For now we will continue with metoprolol 50 mg twice daily. Anticoagulation as above. Parkinson's disease continue Carbidopa/levodopa, short acting formulation ordered to allow administration through PEG tube. Prior hospitalization recently after a fall, facial trauma, transient need for tracheostomy which was removed. PEG tube was placed during same hospitalization. Patient is DNR/DNI Continue tube feeds at decreased rate of 45 cc/h for now given concerns for aspiration. At group home patient is on Jevity 1.5 360 cc 4 times a day bolus feeds Protonix for PUD prophylaxis Continue physical therapy. Out of bed to chair. Attestations 2 Medical Necessity Statement*: Requires further hospitalization for management of respiratory failure in setting of bilateral PEs, aspiration pneumonitis and COPD exacerbation and rhinovirus infection as patient remains on heated high flow Diagnoses Respiratory failure J96.90 Pulmonary embolism I26.99 Bilateral pneumonia J18.9 Rhinovirus infection B34.8 Parkinson's disease without dyskinesia, with fluctuating manifestations G20.A2 Dyskinesia presence: without dyskinesia Fluctuating manifestations: with fluctuating manifestations Shortness of breath R06.02 Edema R60.9 On tube feeding diet Z78.9
[2023-09-08] MEDS: amiodarone 50 mg/mL SDV 3 mL 150 MG IVP (10:01)
[2023-09-08] MEDS: FUROsemide 10 mg/mL SDV 4mL 40 MG IVP (13:27)
[2023-09-08] MEDS: iron sucrose 200 MG in sodium chloride 0.9% (100 ml) 100 ML 220 MG IV (13:28)
--- NOTE | 2023-09-08 15:14 | PC.NURSE ---
Adjusted the schedule for Zosyn due to vancomycin running.
[2023-09-09] VITALS (19 sets, daily range): BP systolic 94–112; BP diastolic 59–74; PULSE 80–95; RESP 17–36; TEMP 36.6–37.1; O2SAT 89–98; BMI 28.0
[2023-09-09 00:59] LABS: Basophils % 0.1 %; Hematocrit 29.1 % (37-53); Lymphocytes # 0.9 10^3/uL (0.8-4.8); Lymphocytes % 4.5 %; Mean Corpuscular Hemoglobin 30.5 pg (27-33); Mean Corpuscular Volume 92.4 fl (82-101); Mean Platelet Volume 9.7 fL (7.4-10.4); Monocytes # 0.7 10^3/uL (0.2-0.9); Monocytes % 3.7 %; Neutrophils # 17.47 10^3/uL (1.8-7.7); Nucleated Red Blood Cells % 0 %; Platelet Count 262 10^3/cmm (157-399); Red Blood Count 3.15 10^6/uL (3.85-5.65); Red Cell Distribution Width 12.5 % (12.1-15.1); White Blood Count 19.17 10^3/uL (3.29-11.43)
[2023-09-09 01:15] LABS: Magnesium 2.5 mg/dL (1.7-2.3); Phosphorus 3.2 mg/dL (2.5-4.5)
[2023-09-09 01:16] LABS: Vancomycin Trough 13.8 ug/mL (10-15)
[2023-09-09 01:22] LABS: Alanine Aminotransferase 27 U/L (0-41); Albumin Level 2.9 g/dL (3.5-5.2); Alkaline Phosphatase 165 U/L (40-130); Anion Gap 15.7 (5-19); Aspartate Amino Transferase 49 U/L (0-40); Blood Urea Nitrogen 24 mg/dL (8-23); Calcium 8.1 mg/dL (8.5-10.5); Carbon Dioxide 24 mmol/L (22-29); Chloride 100 mmol/L (98-107); Creatinine Clr Calc Pharmacy 83.6915; Globulin 2.5 g/dL (1.3-4.6); Glucose 205 mg/dL (65-115); Osmolality Calculated 292 mOsm/kg (285-295); Potassium 3.7 mmol/L (3.5-5.1); Sodium 136 mmol/L (136-145); Total Bilirubin 0.4 mg/dL (0.15-1.2); Total Protein 5.4 g/dL (6.6-8.7)
[2023-09-09] MEDS: vancomycin 1,500 MG/300 ML PIGGYBACK 200 MG IV ×2 (02:12→13:53)
[2023-09-09] MEDS: ipratropium 0.5 mg/2.5 mL Neb INHALATION ×4 (02:27→20:03)
[2023-09-09] MEDS: levalbuterol 0.63 mg/3 mL Neb 0.630000000000000004 MG INHALATION ×4 (02:27→20:03)
[2023-09-09] MEDS: methylPREDNISolone sod succ 40 mg/mL INJ IVP ×3 (03:52→17:08)
[2023-09-09] MEDS: enoxaparin 100 mg/mL Syringe 90 MG SUBCUT ×2 (03:52→17:07)
[2023-09-09] MEDS: piperacillin-tazobactam 3.375 GM in sodium chloride 0.9% (plus) 50 ML IV ×3 (05:56→21:17)
[2023-09-09] MEDS: levothyroxine 75 mcg Tablet PEG-TUBE (05:56)
[2023-09-09] MEDS: budesonide 0.5 mg/2 mL Neb INHALATION ×2 (07:24→20:03)
[2023-09-09] MEDS: carbidopa-levodopa 25-250mg Tablet 2 EACH PEG-TUBE ×3 (08:30→21:12)
[2023-09-09] MEDS: metoprolol tartrate 50 mg Tablet PEG-TUBE ×2 (08:30→21:12)
[2023-09-09] MEDS: sennosides-docusate Tablet 1 TAB PEG-TUBE (08:30)
[2023-09-09] MEDS: pantoprazole 40 mg SDV IVP (08:30)
--- NOTE | 2023-09-09 08:32 | XR_ITS ---
WS: [id number] Examination: XR chest 1V portable [id number] Reason for Exam: resp failure Date: September 09, 2023 Comparison: September 06, 2023 Findings: There is cardiomegaly. A right ventricular pacer lead is in place. There is a battery pack for stimul ator wires projected over the right chest. The basilar infiltrates have improved in the interval with mild residual. Chronic changes are present . There is no failure. Impression: There is cardiomegaly without failure The infiltrative changes are improving.
--- NOTE | 2023-09-09 10:28 | P.PN_ITS ---
Subjective 2 Subjective: No acute events overnight. Today morning patient seen sitting up in chair. States feeling a lot better. Denies any nausea, vomiting, headache. Working well with physical therapy. Working well with I-S and Acapella. Currently on 45 L 45% on heated high flow. Vitals/I&O/Wt Last Vital Signs Temp 98.4 F 09/09/23 08:00 Pulse 91 09/09/23 09:51 Resp 24 H 09/09/23 09:51 BP 112/74 09/09/23 08:00 Pulse Ox 94 09/09/23 09:51 O2 Del Method High Flow Nasal Cannula 09/09/23 09:51 O2 Flow Rate 8 09/09/23 09:51 FiO2 45 09/09/23 09:40 09/08/23 09/09/23 09/09/23 22:59 06:59 14:59 Intake Total 1045 / 1155 350 / 1505 50 / 50 Output Total 550 / 550 450 / 1000 Balance 495 / 605 -100 / 505 50 / 50 Weight last 48 hrs Weight 91.314 kg Weight 91.314 kg Physical Exam 2 Narrative: General: No acute distress, AO x3, chronically sick appearing HEENT: PERRLA, pupils bilaterally equal and reactive Chest: Bilateral bronchial breath sounds, coarse crackles present in right lower and middle zone, left lower zone, decreased air entry left lower zone, occasional rhonchi CVS: S1-S2 regular, no murmurs, tachycardia, no gallops, no rubs Abdomen: Soft, nontender, no organomegaly, bowel sounds present Neuro: No focal deficits, no facial deformity, AO x3, power 5/5 in all limbs Urinary Catheter Management: Goldstein: Cath Placed During This Visit: yes Reason for Continuing Indwelling Catheter: Accurate Measurement of Urinary Output in Critically Ill Patients Urinary Catheter Date of Insertion: 09/04/23 Urinary Catheter Time of Insertion: 04:20 Data 09/09/23 00:55 09/09/23 00:55 Micro: Microbiology 09/07/23 15:45 Gram Stain - Final Sputum - Expectorated Sputum Sputum Culture - Preliminary 09/07/23 15:45 Bacterial Antigens - Final Urine Kidney A&P Assessment and plan (1) Respiratory failure: (2) Pulmonary embolism: (3) Bilateral pneumonia: (4) Rhinovirus infection: (5) Parkinson's Disease: Qualifiers: Dyskinesia presence: without dyskinesia Fluctuating manifestations: w ith fluctuating manifestations Qualified Code(s): G20.A2 - Parkinson's disease without dyskinesia, with fluctuations (6) Shortness of breath: (7) Edema: (8) On tube feeding diet: Plan Respiratory failure: Most likely in setting of rhinovirus infection leading to COPD exacerbation, acute bilateral pulmonary embolism along with possibility of pneumonia. Continue to wean heated high flow keeping saturation over 90%. Plan to transition her to high flow today. Continue with ipratropium and Xopenex every 6 hours, Pulmicort twice daily. Continue with Mucomyst Wean Solu-Medrol 40 mg IV every 8 hourly. Appreciate repeat CTA. Consistent with persistent bilateral PEs Echocardiogram on admission showed EF 55 to 60% with dilated LA, mild MR with mild pulmonary hypertension without concerns for RV strain. Cannot rule out aspiration pneumonia. Procalcitonin negative, sputum culture pending, urine Legionella and bacterial antigen negative. Because patient is having worsening respiratory failure for now start empirically on IV Zosyn and vancomycin. Will discontinue vancomycin if MRSA swab negative. Worsening leukocytosis most likely in setting of high-dose steroids. Patient has remained afebrile. Broadly covered with antibiotics for now. Got IV Lasix over last 2 days. BUN slightly elevated today. Will hold off on further Lasix for today. Monitor renal functions. Strict input output charting. Daily weights. Aggressive pulmonary toilet with I-S and Acapella. Repeat chest x-ray read by me shows resolution of the consolidation in the right lower zone. Pulmonary embolism: CTA as above. Lovenox 1 mg/kg body weight 12 hourly. Will discharge on NOACs. A-fib with RVR: Heart rate better controlled. Continue with amiodarone drip as per the protocol. Will transition to 200 mg oral twice daily. Continue with home dose of metoprolol 50 mg twice daily Anticoagulation as above. Parkinson's disease continue Carbidopa/levodopa, short acting formulation ordered to allow administration through PEG tube. Prior hospitalization recently after a fall, facial trauma, transient need for tracheostomy which was removed. PEG tube was placed during same hospitalization. Patient is DNR/DNI Continue tube feeds at decreased rate of 45 cc/h for now given concerns for aspiration. At detention patient is on Jevity 1.5 360 cc 4 times a day bolus feeds Protonix for PUD prophylaxis Continue physical therapy. Out of bed to chair. Attestations 2 Medical Necessity Statement*: Requires further hospitalization for management of respiratory failure in setting of COPD exacerbation, aspiration pneumonia, bilateral PE Diagnoses Respiratory failure J96.90 Pulmonary embolism I26.99 Bilateral pneumonia J18.9 Rhinovirus infection B34.8 Parkinson's disease without dyskinesia, with fluctuating manifestations G20.A2 Dyskinesia presence: without dyskinesia Fluctuating manifestations: with fluctuating manifestations Shortness of breath R06.02 Edema R60.9 On tube feeding diet Z78.9
--- NOTE | 2023-09-09 10:47 | PC.NURSE ---
Per Dr. Colindres, patients amiodarone IV drip is restarted at 0.5mg until midnight tonight (09/09/2023). He will also add oral at 1800.
--- NOTE | 2023-09-09 12:03 | PC.SOCIAL ---
IMM Update pg 2 of of IMM updated and reviewed w/ patient. Copy provided and copy dated, initialed and placed in chart.
[2023-09-09] MEDS: iron sucrose 200 MG in sodium chloride 0.9% (100 ml) 100 ML 220 MG IV (13:17)
[2023-09-09] MEDS: acetylcysteine 200 mg/mL SDV 4 mL 100 MG INHALATION ×2 (13:27→20:03)
[2023-09-09] MEDS: amiodarone 200 mg Tablet PO (17:08)
[2023-09-10] VITALS (16 sets, daily range): BP systolic 83–107; BP diastolic 54–71; PULSE 74–97; RESP 16–22; TEMP 36.4–36.8; O2SAT 88–95
[2023-09-10] MEDS: methylPREDNISolone sod succ 40 mg/mL INJ IVP ×3 (01:08→17:26)
[2023-09-10] MEDS: vancomycin 1,500 MG/300 ML PIGGYBACK 200 MG IV ×2 (01:09→14:23)
[2023-09-10] MEDS: ipratropium 0.5 mg/2.5 mL Neb INHALATION ×4 (02:24→20:24)
[2023-09-10] MEDS: levalbuterol 0.63 mg/3 mL Neb 0.630000000000000004 MG INHALATION ×4 (02:24→20:24)
[2023-09-10 03:37] LABS: Basophils % 0.1 %; Hematocrit 27.8 % (37-53); Lymphocytes # 1.4 10^3/uL (0.8-4.8); Lymphocytes % 6.8 %; Mean Corpuscular Hemoglobin 30.4 pg (27-33); Mean Corpuscular Volume 94.9 fl (82-101); Monocytes # 1.1 10^3/uL (0.2-0.9); Monocytes % 5.3 %; Neutrophils % 84.1 %; Nucleated Red Blood Cells # 0.1 /100WBC; Nucleated Red Blood Cells % 0.4 %; Platelet Count 317 10^3/cmm (157-399); Red Blood Count 2.93 10^6/uL (3.85-5.65); Red Cell Distribution Width 12.7 % (12.1-15.1); White Blood Count 20.81 10^3/uL (3.29-11.43)
[2023-09-10 03:58] LABS: Magnesium 2.4 mg/dL (1.7-2.3)
[2023-09-10 03:59] LABS: Alanine Aminotransferase 27 U/L (0-41); Albumin Level 2.7 g/dL (3.5-5.2); Alkaline Phosphatase 164 U/L (40-130); Anion Gap 14.9 (5-19); Aspartate Amino Transferase 29 U/L (0-40); Blood Urea Nitrogen 26 mg/dL (8-23); Calcium 8.5 mg/dL (8.5-10.5); Carbon Dioxide 26 mmol/L (22-29); Chloride 100 mmol/L (98-107); Creatinine Clr Calc Pharmacy 83.6915; Globulin 3.1 g/dL (1.3-4.6); Glucose 164 mg/dL (65-115); Osmolality Calculated 292 mOsm/kg (285-295); Potassium 3.9 mmol/L (3.5-5.1); Sodium 137 mmol/L (136-145); Total Bilirubin 0.5 mg/dL (0.15-1.2); Total Protein 5.8 g/dL (6.6-8.7)
[2023-09-10] MEDS: piperacillin-tazobactam 3.375 GM in sodium chloride 0.9% (plus) 50 ML IV ×3 (05:19→21:07)
[2023-09-10] MEDS: enoxaparin 100 mg/mL Syringe 90 MG SUBCUT ×2 (05:22→16:19)
[2023-09-10] MEDS: levothyroxine 75 mcg Tablet PEG-TUBE (05:22)
[2023-09-10] MEDS: acetylcysteine 200 mg/mL SDV 4 mL 100 MG INHALATION (07:33)
[2023-09-10] MEDS: budesonide 0.5 mg/2 mL Neb INHALATION ×2 (07:33→20:24)
[2023-09-10] MEDS: pantoprazole 40 mg SDV IVP (09:05)
--- NOTE | 2023-09-10 09:18 | FL_ITS ---
WS: [id number] EXAMINATION: FL barium swallow modifd [id number] ORDER DATE: 09/10/2023 11:35 AM REASON FOR EXAM: Oropharyngeal dysphagia COMPARISON: None available. FLUOROSCOPY TIME: 0min [id number] # OF SPOT FILMS: 8 video runs FINDINGS: There is a weakened poorly coordinated swallowing mechanism There was pooling within the vallecula Penetration with thin liquids were noted without aspiration. IMPRESSION: Weakened poorly coordinated swallowing mechanism is identified. No aspiration is seen. Please see the complete results and recommendations per speech pathology.
[2023-09-10] MEDS: carbidopa-levodopa 25-250mg Tablet 2 EACH PEG-TUBE ×3 (09:28→20:58)
[2023-09-10] MEDS: amiodarone 200 mg Tablet PO ×2 (09:28→17:26)
[2023-09-10] MEDS: metoprolol tartrate 50 mg Tablet 25 MG PEG-TUBE ×2 (09:29→20:58)
[2023-09-10] MEDS: sennosides-docusate Tablet 1 TAB PEG-TUBE (09:29)
--- NOTE | 2023-09-10 10:35 | PM.PN ---
Subjective Subjective: No acute events overnight. Patient has remained hemodynamically stable and afebrile. States she is feeling a lot better today. Heart rate has been better controlled.'s blood pressure slightly soft today morning. Asking when can he be transition to oral diet. We discussed unfortunately will be difficult for him to go back to oral diet for now because there is still concerns for aspiration. He is agreeable for PEG tube feeding for now. Switched over to high flow nasal cannula today down to 4 L saturating more than 90%. Vitals/I&O/Wt Last Vital Signs Temp 97.8 F 09/10/23 06:57 Pulse 91 09/10/23 07:37 Resp 20 H 09/10/23 07:37 BP 97/65 09/10/23 06:57 Pulse Ox 92 09/10/23 07:37 O2 Del Method High Flow Nasal Cannula 09/10/23 07:37 O2 Flow Rate 4 09/10/23 07:37 FiO2 45 09/09/23 09:40 09/09/23 09/10/23 09/10/23 22:59 06:59 14:59 Intake Total 1040.595 / 8435.597 8441.228 / 3302.823 50 / 50 Output Total 950 / 1475 Balance 1040.595 / 251.510 4425.228 / 1827.823 50 / 50 Weight last 48 hrs Weight 91.127 kg Weight 91.314 kg Physical Exam Narrative: General: No acute distress, AO x3, chronically sick appearing HEENT: PERRLA, pupils bilaterally equal and reactive Chest: Bilateral bronchial breath sounds, coarse crackles present in right lower and middle zone, left lower zone, decreased air entry left lower zone, occasional rhonchi CVS: S1-S2 regular, no murmurs, tachycardia, no gallops, no rubs Abdomen: Soft, nontender, no organomegaly, bowel sounds present Neuro: No focal deficits, no facial deformity, AO x3, power 5/5 in all limbs Urinary Catheter Management: Goldstein: Cath Placed During This Visit: yes Reason for Continuing Indwelling Catheter: Accurate Measurement of Urinary Output in Critically Ill Patients Urinary Catheter Date of Insertion: 09/04/23 Urinary Catheter Time of Insertion: 04:20 Data 09/10/23 03:05 09/10/23 03:05 Micro: Microbiology 09/07/23 15:45 Gram Stain - Final Sputum - Expectorated Sputum Sputum Culture - Preliminary Coag positive Staphylococcus A&P Assessment and plan (1) Respiratory failure: (2) Pulmonary embolism: (3) Bilateral pneumonia: (4) Rhinovirus infection: (5) Parkinson's Disease: Qualifiers: Dyskinesia presence: without dyskinesia Fluctuating manifestations: with fluctuating manifestations Qualified Code(s): G20.A2 - Parkinson's disease without dyskinesia, with fluctuations (6) Shortness of breath: (7) Edema: (8) On tube feeding diet: Plan Respiratory failure: Most likely in setting of rhinovirus infection leading to COPD exacerbation, acute bilateral pulmonary embolism along with possibility of pneumonia. Continue to wean high flow nasal cannula keeping saturation over 90%. Down to 4 L right now. Continue with ipratropium and Xopenex every 6 hours, Pulmicort twice daily. Continue with Mucomyst Wean Solu-Medrol 40 mg IV twice daily. Plan to transition to oral steroids within next 24 to 48 hours. Appreciate repeat CTA. Consistent with persistent bilateral PEs Echocardiogram on admission showed EF 55 to 60% with dilated LA, mild MR with mild pulmonary hypertension without concerns for RV strain. Cannot rule out aspiration pneumonia. Procalcitonin negative, sputum culture growing positive staph, urine Legionella and bacterial antigen negative. MRSA swab still pending. Continue IV Zosyn and vancomycin for now. If MRSA is negative will discontinue vancomycin. Hold off on Lasix for now given soft blood pressures. Monitor renal functions. Strict input output charting. Daily weights. Aggressive pulmonary toilet with I-S and Acapella. Out of bed to chair. Pulmonary embolism: CTA as above. Lovenox 1 mg/kg body weight 12 hourly. Will discharge on NOACs. A-fib with RVR: Heart rate better controlled. Amiodarone 200 mg twice daily. Soft blood pressures will change metoprolol to home dose of 25 mg twice daily. Anticoagulation as above. Parkinson's disease continue Carbidopa/levodopa, short acting formulation ordered to allow administration through PEG tube. Prior hospitalization recently after a fall, facial trauma, transient need for tracheostomy which was removed. PEG tube was placed during same hospitalization. Patient wants to transition over to oral diet as soon as possible though seems difficult right now because of aspiration pneumonia. Modified barium swallow today. Patient is DNR/DNI Continue tube feeds at decreased rate of 45 cc/h for now given concerns for aspiration. At intermediate patient is on Jevity 1.5 360 cc 4 times a day bolus feeds Protonix for PUD prophylaxis Continue physical therapy. Out of bed to chair. Discharge plan: Patient remains hemodynamically stable on decreasing oxygen supplementation within next 24 hours will plan to discharge to SNF for further rehabitation. Patient will need speech therapy to continue at the intermediate along with physical therapy. Attestations Medical Necessity Statement*: Requires further hospitalization for management of hypoxic respiratory failure in setting of bilateral PE, rhinovirus infection need to COPD exacerbation, aspiration pneumonia while safe discharge planning is sought Diagnoses Respiratory failure J96.90 Pulmonary embolism I26.99 Bilateral pneumonia J18.9 Rhinovirus infection B34.8 Parkinson's disease without dyskinesia, with fluctuating manifestations G20.A2 Dyskinesia presence: without dyskinesia Fluctuating manifestations: with fluctuating manifestations Shortness of breath R06.02 Edema R60.9 On tube feeding diet Z78.9
[2023-09-10] MEDS: iron sucrose 200 MG in sodium chloride 0.9% (100 ml) 100 ML 220 MG IV (12:50)
[2023-09-10] MEDS: albumin 25 G/100 ML BAG 60 G IV ×2 (16:18→22:53)
[2023-09-10] MEDS: midodrine 5 mg TABLET PO ×2 (16:18→20:58)
[2023-09-11] VITALS (23 sets, daily range): BP systolic 88–108; BP diastolic 51–69; PULSE 67–90; RESP 16–29; TEMP 35.9–36.7; O2SAT 90–94
[2023-09-11] MEDS: vancomycin 1,500 MG/300 ML PIGGYBACK 200 MG IV ×2 (01:55→15:26)
[2023-09-11] MEDS: levalbuterol 0.63 mg/3 mL Neb 0.630000000000000004 MG INHALATION ×4 (02:25→20:50)
[2023-09-11] MEDS: ipratropium 0.5 mg/2.5 mL Neb INHALATION ×4 (02:25→20:55)
[2023-09-11 03:32] LABS: Hematocrit 25.9 % (37-53); Mean Corpuscular Hemoglobin 30.5 pg (27-33); Mean Corpuscular Volume 95.2 fl (82-101); Platelet Count 367 10^3/cmm (157-399); Red Blood Count 2.72 10^6/uL (3.85-5.65); Red Cell Distribution Width 13.1 % (12.1-15.1); White Blood Count 20.77 10^3/uL (3.29-11.43)
[2023-09-11 03:50] LABS: Alanine Aminotransferase 27 U/L (0-41); Albumin Level 3.3 g/dL (3.5-5.2); Alkaline Phosphatase 143 U/L (40-130); Anion Gap 15.1 (5-19); Aspartate Amino Transferase 20 U/L (0-40); Blood Urea Nitrogen 24 mg/dL (8-23); Calcium 8.3 mg/dL (8.5-10.5); Carbon Dioxide 25 mmol/L (22-29); Chloride 100 mmol/L (98-107); Creatinine Clr Calc Pharmacy 83.6149; Globulin 2.7 g/dL (1.3-4.6); Glucose 171 mg/dL (65-115); Osmolality Calculated 290 mOsm/kg (285-295); Potassium 4.1 mmol/L (3.5-5.1); Sodium 136 mmol/L (136-145); Total Bilirubin 0.6 mg/dL (0.15-1.2)
[2023-09-11 04:20] LABS: Absolute Segmented Neutrophil 16.4 10/cmm (1.6-7.1); Anisocytosis 1+; Band Neutrophils Absolute 0.6 10^3/cmm (0.0-1.2); Eosinophils 0 %; Lymphocytes 11 %; Monocytes Absolute 0.4 10^3/cmm (0.1-0.6); Platelet Estimate Normal (Normal); Segmented Neutrophils 79 %; Slide Review Slide Review Perform; Total Cells Counted 100 (0-100)
[2023-09-11] MEDS: piperacillin-tazobactam 3.375 GM in sodium chloride 0.9% (plus) 50 ML IV ×3 (05:26→21:20)
[2023-09-11] MEDS: enoxaparin 100 mg/mL Syringe 90 MG SUBCUT (05:26)
[2023-09-11] MEDS: levothyroxine 75 mcg Tablet PEG-TUBE (05:27)
[2023-09-11] MEDS: budesonide 0.5 mg/2 mL Neb INHALATION ×2 (07:43→20:50)
[2023-09-11] MEDS: carbidopa-levodopa 25-250mg Tablet 2 EACH PEG-TUBE ×3 (09:32→21:07)
[2023-09-11] MEDS: sennosides-docusate Tablet 1 TAB PEG-TUBE (09:33)
[2023-09-11] MEDS: amiodarone 200 mg Tablet PO ×2 (09:34→18:24)
[2023-09-11] MEDS: methylPREDNISolone sod succ 40 mg/mL INJ 20 MG IVP ×2 (09:35→18:23)
[2023-09-11] MEDS: midodrine 5 mg TABLET 10 MG PO ×3 (09:35→21:08)
[2023-09-11] MEDS: albumin 25 G/100 ML BAG 60 G IV ×3 (09:36→23:32)
[2023-09-11] MEDS: pantoprazole 40 mg SDV IVP ×2 (09:37→18:23)
[2023-09-11] MEDS: pyridostigmine 60 mg Tablet PO ×4 (09:57→21:08)
--- NOTE | 2023-09-11 09:57 | PC.SOCIAL ---
IMM Update pg 2 of IMM updated and reviewed w/ patient. Copy provided and copy dated, initialed and placed in chart.
[2023-09-11 10:34] LABS: Methicillin-Resist S.aureu PCR NOT DETECTED (NOT DETECTED)
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
[2023-09-11 15:01] LABS: Hematocrit 25.7 % (37-53)
[2023-09-11 16:37] LABS: C.Diff PCR (Lab) NEGATIVE (Negative)
[2023-09-11] MEDS: sucralfate 1 gm/10 mL Oral Liq UDC PO ×2 (18:23→21:08)
[2023-09-11] MEDS: iron sucrose 200 MG in sodium chloride 0.9% (100 ml) 100 ML 220 MG IV (18:47)
[2023-09-11] MEDS: sodium chloride 0.9% 100 mL Bag 50 ML IV (19:50)
--- NOTE | 2023-09-11 22:51 | PC.NURSE ---
contacted doctor about GI bleed and still being on lovenox for clots, gave orders to call if blood is seen in stool and to watch Hgb closely with q4 Hgb and Hct
[2023-09-11 23:52] LABS: Hematocrit 25.6 % (37-53)
[2023-09-12] VITALS (22 sets, daily range): BP systolic 88–130; BP diastolic 56–90; PULSE 63–94; RESP 18–35; TEMP 36–36.8; O2SAT 90–98
[2023-09-12] MEDS: vancomycin 1,500 MG/300 ML PIGGYBACK 200 MG IV ×2 (01:24→14:24)
--- NOTE | 2023-09-12 01:35 | PC.NURSE ---
called MD due to stool having blood, gave orders to hold lovenox for this morning and to watch Hgb and call if under 7
[2023-09-12 02:11] LABS: Hematocrit 22.9 % (37-53)
[2023-09-12] MEDS: ipratropium 0.5 mg/2.5 mL Neb INHALATION ×4 (02:45→19:37)
[2023-09-12] MEDS: levalbuterol 0.63 mg/3 mL Neb 0.630000000000000004 MG INHALATION ×4 (02:45→19:37)
--- NOTE | 2023-09-12 02:51 | PC.NURSE ---
contacted the MD about the Hgb result of 7.3, he ordered 1 unit of PRBC, to stop tube feeding, continuous fluids of NS at 75ml/hr, and a stat INR/PT and PTT
[2023-09-12] MEDS: sodium chloride 0.9% 1,000 ML 75 ML IV ×2 (02:57→17:47)
[2023-09-12 03:20] LABS: INR 1.26 (0.8-1.2)
[2023-09-12 03:21] LABS: Partial Thromboplastin Time 28.1 SECONDS (23.9-36.7)
[2023-09-12] MEDS: sodium chloride 0.9% 100 mL Bag 50 ML IV (03:37)
[2023-09-12] MEDS: piperacillin-tazobactam 3.375 GM in sodium chloride 0.9% (plus) 50 ML IV (04:48)
[2023-09-12] MEDS: levothyroxine 75 mcg Tablet PEG-TUBE (06:02)
[2023-09-12] MEDS: sucralfate 1 gm/10 mL Oral Liq UDC PO ×4 (06:02→21:47)
[2023-09-12] MEDS: budesonide 0.5 mg/2 mL Neb INHALATION ×2 (08:22→19:37)
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
[2023-09-12 08:55] LABS: Basophils # 0.1 10^3/uL (0.0-0.1); Basophils % 0.4 %; Hematocrit 26.4 % (37-53); Lymphocytes # 2.2 10^3/uL (0.8-4.8); Lymphocytes % 9.5 %; Mean Corpuscular HGB Conc 32.2 g/dL (30-55); Mean Corpuscular Hemoglobin 29.9 pg (27-33); Mean Platelet Volume 9.9 fL (7.4-10.4); Monocytes # 1.4 10^3/uL (0.2-0.9); Monocytes % 6.2 %; Neutrophils # 15.66 10^3/uL (1.8-7.7); Nucleated Red Blood Cells # 1.8 /100WBC; Platelet Count 323 10^3/cmm (157-399); Red Blood Count 2.84 10^6/uL (3.85-5.65); Red Cell Distribution Width 15.7 % (12.1-15.1); White Blood Count 22.54 10^3/uL (3.29-11.43)
[2023-09-12 09:10] LABS: Alanine Aminotransferase 40 U/L (0-41); Albumin Level 3.7 g/dL (3.5-5.2); Alkaline Phosphatase 92 U/L (40-130); Anion Gap 15.3 (5-19); Aspartate Amino Transferase 25 U/L (0-40); Blood Urea Nitrogen 28 mg/dL (8-23); Calcium 8.2 mg/dL (8.5-10.5); Carbon Dioxide 21 mmol/L (22-29); Chloride 105 mmol/L (98-107); Globulin 2.1 g/dL (1.3-4.6); Glucose 102 mg/dL (65-115); Osmolality Calculated 290 mOsm/kg (285-295); Potassium 4.3 mmol/L (3.5-5.1); Sodium 137 mmol/L (136-145); Total Bilirubin 1.5 mg/dL (0.15-1.2); Total Protein 5.8 g/dL (6.6-8.7)
[2023-09-12] MEDS: albumin 25 G/100 ML BAG 60 G IV ×3 (09:10→23:50)
--- NOTE | 2023-09-12 09:24 | P.CONIM_ITS ---
Providers/Reason For Consult 2 Consulting Physician/Specialty*: Braxton John/ Interventional cardiology Reason for Consult*: IVC filter placement Requesting Physician: Dr Colindres Attending Physician: Milton Colindres MD Primary Care Provider: Lance Davila MD History of Present Illness History of Present Illness Farhat Guardado is a 82 year old male who was admitted with chest pain and was found to have pulmonary emboli. He was also found to have DVTs bilaterally. Also has atrial fibrillation. He was on anticoagulation. However developed GI bleed and anemia requiring blood transfusions. Interventional cardiology consulted for IVC filter placement. He has shortness of breath. No chest pain Review of Systems 2 Const: Denies: fever(s), chills or body aches Eyes: Denies: change in vision ENMT: Denies: bleeding gums or epistaxis Card: Denies: chest pain or lightheadedness Resp: Reports: dyspnea; Denies: hemoptysis GI: Reports: dysphagia and hematochezia; Denies: abdominal pain, nausea or vomiting : Denies: hematuria Musc: Denies: extremity pain or limited range of motion Skin/Breast: Denies: rash, pruritus or skin pain Neuro: Denies: numbness in extremities or weakness in extremities Collin/Lymph: Reports: easy bruising; Denies: petechiae or purpura Medications/Allergies Home Medications Medication Instructions Recorded Confirmed Last Taken Type furosemide 20 mg tablet 10 mg PO QAM 08/22/19 09/04/23 Unknown History levothyroxine 75 mcg capsule 75 mcg PO DAILY 08/22/19 09/04/23 Unknown History tamsulosin 0.4 mg capsule 0.4 mg PO DAILY 08/22/19 09/04/23 Unknown History apixaban 5 mg tablet (Eliquis) See Rx Instructions .Route 09/04/23 Unknown Rx .COMPLEX #180 tabs carbidopa 25 mg-levodopa 250 mg 2 tab PO TID 09/05/23 09/05/23 Unknown History tablet docusate sodium 50 mg/5 mL oral 10 ml PO BID 09/05/23 09/05/23 Unknown History liquid doxazosin 1 mg tablet 1 mg PO DAILY 09/05/23 09/05/23 Unknown History metoprolol tartrate 25 mg tablet 25 mg PO BID 09/05/23 09/05/23 Unknown History multivitamin 1 tab PO DAILY 09/05/23 09/05/23 Unknown History rivastigmine tartrate 1.5 mg 1.5 mg PO DAILY 09/05/23 09/05/23 Unknown History capsule warfarin 3 mg tablet 3 mg PO DAILY 09/05/23 09/05/23 Unknown History Allergies Allergy/AdvReac Type Severity Reaction Status Date / Time adhesive Allergy rash Verified 09/03/23 14:38 Current Medications Generic Name Dose Route Start Last Admin Trade Name Ann PRN Reason Stop Dose Admin Amiodarone HCl 200 mg 09/09/23 18:00 09/11/23 18:24 Amiodarone 200 Mg Tablet PO 200 mg BID JAIMEE Administration Budesonide 0.5 mg 09/07/23 10:00 09/12/23 08:22 Budesonide 0.5 Mg/2 Ml Neb INHALATION 0.5 mg BID.RESPIRATORY JAIMEE Administration Carbidopa/Levodopa 2 each 09/05/23 21:00 09/11/23 21:07 Carbidopa-Levodopa 25-250mg Tablet PEG-TUBE 2 each TID JAIMEE Administration Enoxaparin Sodium 90 mg 09/07/23 17:00 09/12/23 01:34 Enoxaparin 100 Mg/Ml Syringe 1 mg/kg (90 mg) Not Given SUBCUT Q12H JAIMEE Piperacillin Sod/Tazobactam 50 mls @ 12.5 mls/hr 09/07/23 14:00 09/12/23 04:48 Sod 3.375 gm/ Sodium Chloride IV 09/12/23 13:59 12.5 mls/hr Q8H JAIMEE Administration Vancomycin/PEG/NADA/Lysine/Water 1,500 mg in 300 mls @ 200 mls/hr 09/07/23 14:00 09/12/23 02:57 Vancocin IV 09/14/23 13:59 Infused Q12H JAIMEE Infusion Iron Sucrose 200 mg/ Sodium 110 mls @ 220 mls/hr 09/08/23 12:30 09/11/23 19:34 Chloride IV 09/12/23 15:07 Infused Q24H JAIMEE Infusion Albumin Human 25 g in 100 mls @ 60 mls/hr 09/10/23 15:45 09/12/23 09:10 Albumin IV 60 mls/hr Q8H JAIMEE Administration Sodium Chloride 1,000 mls @ 75 mls/hr 09/12/23 02:45 09/12/23 02:57 Sodium Chloride 0.9% IV 75 mls/hr .[id number] JAIMEE Administration Ipratropium [place] 0.5 mg 09/07/23 14:00 09/12/23 08:22 Ipratropium 0.5 Mg/2.5 Ml Neb INHALATION 0.5 mg Q6H.RESP JAIMEE Administration Levalbuterol HCl 0.63 mg 09/07/23 14:00 09/12/23 08:22 Levalbuterol 0.63 Mg/3 Ml Neb INHALATION 0.63 mg Q6H.RESP JAIMEE Administration Levothyroxine Sodium 75 mcg 09/06/23 07:00 09/12/23 06:02 Levothyroxine 75 Mcg Tablet PEG-TUBE 75 mcg ACBREAKFAST JAIMEE Administration Methylprednisolone Sodium Succinate 20 mg 09/11/23 09:00 09/11/23 18:23 Methylprednisolone Sod Succ 40 Mg/Ml Inj IVP 20 mg BID JAIMEE Administration Metoprolol Tartrate 25 mg 09/10/23 09:30 09/10/23 20:58 Metoprolol Tartrate 50 Mg Tablet PEG-TUBE 25 mg BID@0900,2100 JAIMEE Administration Midodrine 10 mg 09/11/23 09:00 09/11/23 21:08 Midodrine 5 Mg Tablet PO 10 mg TID JAIMEE Administration Pantoprazole Sodium 40 mg 09/11/23 09:00 09/11/23 18:23 Pantoprazole 40 Mg Sdv IVP 40 mg BID JAIMEE Administration Pyridostigmine [place] 60 mg 09/11/23 09:00 09/11/23 21:08 Pyridostigmine 60 Mg Tablet PO 60 mg QID JAIMEE Administration Senna/Docusate Sodium 1 tab 09/06/23 09:00 09/11/23 09:33 Sennosides-Docusate Tablet PEG-TUBE 1 tab DAILY JAIMEE Administration Sodium Chloride 50 ml 09/11/23 16:44 09/11/23 19:50 Sodium Chloride 0.9% 100 Ml Bag IV 09/12/23 16:45 50 ml PRN PRN Administration Blood transfusion prime and flush Sodium Chloride 50 ml 09/12/23 02:43 09/12/23 03:37 Sodium Chloride 0.9% 100 Ml Bag IV 09/13/23 02:43 50 ml PRN PRN Administration Blood transfusion prime and flush Sucralfate 1 gm 09/11/23 17:00 09/12/23 06:02 Sucralfate 1 Gm/10 Ml Oral Liq Udc PO 1 gm AC&BEDTIME JAIMEE Administration PFSH Acute 2 PFSH: Medical History On tube feeding diet Thyroid disease Afib Pacemaker Parkinson's Disease Surgical History History of surgery on arm Status post deep brain stimulator placement Family History Other Cancer Diabetes Hypertension Denies family history of CAD (coronary artery disease) Family history of premature coronary artery disease Stroke Social History Smoking and tobacco/nicotine status: former use of tobacco/nicotine Quit status (tobacco/nicotine): has quit using Year quit tobacco: 1986 Alcohol intake: current Alcohol intake frequency: 3 or more drinks per day Alcohol type: beer Substance/Drug Use: never Vitals/I&O/Wt Last Vital Signs Temp 97.6 F 09/12/23 07:14 Pulse 72 09/12/23 08:23 Resp 20 H 09/12/23 08:23 BP 103/56 09/12/23 07:14 Pulse Ox 92 09/12/23 08:23 O2 Del Method High Flow Nasal Cannula 09/12/23 08:23 O2 Flow Rate 3.5 09/12/23 08:23 FiO2 45 09/09/23 09:40 09/11/23 09/12/23 09/12/23 22:59 06:59 14:59 Intake Total 1246 / 1613 1126 / 2739 350 / 350 Output Total 750 / 1150 1000 / 2150 Balance 496 / 463 126 / 589 350 / 350 Weight last 48 hrs Weight 199 lb 4 oz Physical Exam 2 Narrative: GENERAL: Patient is alert, awake and oriented x3. [] NECK: No jugular vein distension. [] HEENT: No cyanosis. No icterus. No pallor. [] HEART: Regular S1 and S2. No murmur, rub or gallop. [] LUNGS: Clear to auscultate bilaterally. [] CENTRAL NERVOUS SYSTEM: Grossly nonfocal. [] EXTREMITIES: Lower extremities with 1+ edema bilaterally. Urinary Catheter Management: Goldstein: Cath Placed During This Visit: yes Reason for Continuing Indwelling Catheter: Accurate Measurement of Urinary Output in Critically Ill Patients Urinary Catheter Date of Insertion: 09/04/23 Urinary Catheter Time of Insertion: 04:20 Data 09/13/23 03:27 09/13/23 03:27 Micro: Microbiology 09/11/23 08:21 Occult Blood (FIT) - Final Stool A&P Assessment and plan (1) Pulmonary embolism: (2) Acute lower GI hemorrhage: Plan Patient was recently diagnosed to have bilateral pulmonary emboli. Also has bilateral DVTs. Has developed acute anemia secondary to GI bleed. Requiring blood transfusion. Cannot stay on anticoagulation for now. Plans for undergoing GI evaluation. Interventional cardiology consulted for IVC filter placement. We will proceed with that as it will benefit him given cannot be on anticoagulation and has significant thrombosis. Keep NPO Risks and benefits of procedure discussed in detail with patient and family. They understand risks and benefits and want to proceed. Thank you for involving us care of this patient. we will continue to follow. Please call with questions. Consult Attestations 2 Medical Necessity Statement: Care expected to cross 2 midnights. Coding Level of Care Code Acute Code for Chg Fwd Diagnoses Pulmonary embolism I26.99 Acute lower GI hemorrhage K92.2
--- NOTE | 2023-09-12 09:24 | W.PM.OPSUD ---
Surgery/Procedure H&P Update DATE OF PROCEDURE: September 12, 2023 DATE H&P PERFORMED: 09/12/23 H&P UPDATE INFORMATION: I have reviewed H&P completed within last 30 days, I have examined patient prior to procedure and No changes to prior documentation PREOP DIAGNOSIS: Pulmonary embolism/DVT/Anemia PRIMARY INDICATION FOR PROCEDURE: Pulmonary embolism/DVT/Anemia PLANNED PROCEDURE: IVC filter placement PATIENT REASSESSED PRIOR TO SEDATION, WITH NO CHANGE NOTED: Yes PHYSICAL EXAM: alert, oriented x 3, clear to auscultation bilaterally and regular rate & rhythm AIRWAY EVAL/ANESTHESIA PLAN: normal airway, ASA IV, Local Anesthesia, Risks, benefits & alternatives of sedation and/or procedure discussed and Patient agrees to continue as planned
[2023-09-12 09:27] LABS: Slide Review Slide Review Perform
[2023-09-12 09:28] LABS: Neutrophils % 83.9 %
--- NOTE | 2023-09-12 09:39 | XACV_ITS ---
Exam Room: 2 Ht: 180 cm Wt: 90 kg BSA: 2.14 m2 Gender: Male : 1940 Exam Priority: Routine Procedure(s): Procedure Description: Diagnostic procedure Procedure Description: Peripheral vascular Intervention Procedure Description: PV IVC Filter Placement Lower Extremity Interventional Findings INDICATION: Pulmonary embolism/DVT/Anemia. Procedure detail: IVC filter placement: We obtained access in right common femoral vein. 6 [place] pigtail catheter was used to perform IVC venogram. Renal veins were identified. We then proceeded with placement of [place] IVC filter under fluoroscopic guidance below the renal veins. At this time, sheath was removed and pressure was held to attain hemostasis. Conclusions Successful placement of IVC filter. Recommendations Outpatient cardiology follow up. Clinical Evaluation EBL: 5mL-10mL Procedural Details Pre-Procedure Time Out. Identified patient by full name and date of as verbalized by the patient/guarantor. Does the consent match the physician's order: Yes. Accurate & Complete Informed Consent: Yes. Inpatient/Outpatient History & Physical on Chart: Yes. If H&P is completed, is and addenduem needed: No. Visualize and Verify Site with Patient/Guarantor: N/A. Relevant Radiology Images available: Yes. Pre-op teaching completed and patient verbalized understanding. The risks, benefits, and alternatives of sedation and/or procedure were discussed by physician. The patient agrees to continue. Procedure started. Correct patient, site and procedure confirmed by cath team. IV Site on Arrival: 20 gauge in the right forearm. IV Site on Arrival: 22 gauge in the left wrist. IV Fluids: 0.9% NaCl at KVO. 600 mL infused prior to field laborer. Oxygen started at 4liters/min via nasal canula. bilateral groins was prepped with chloroprep then draped in the usual sterile fashion. Physician notified. Baseline sample Acquired. HR: 96 BPM. Patient's family unavailable. Equipment: 6F - Femoral. Cardiac Cath Pack. ACIST Manifold Kit Model BT 2000. Heparinized Saline (2 units/mL), 1000 mL bag. Kit, Micropuncture. Physician arrived. Physician scrubbed in. Immediate Pre-Procedure Time Out. Correct Patient: Yes; Correct Procedure: Yes; Correct Site: Yes; Correct Patient Position: Yes; Correct Supplies: Yes; Dried Flammable Prep: Yes; Blood Products Available: N/A;. Lidocaine 1% infiltrated to the right groin. Venous access obtained. A 5 ecuadorean Angled Pig catheter in over wire. Aortogram performed in AP @ 10 mL/second for a total of 30 mL. Catheter out. Inofile Vena Cava Filter in. Lot # [id number]. Exp . 5 fr sheath exchanged for Acamica kit sheath. IVC filter deployment device out. A Manual Compression was successful obtaining hemostatsis at the Right Femoral vein insertion site. PERRLA. Strong, equal hand circular sawyer stone bilaterally. No VTE prophylaxis required. Medication's Wasted: Lidocaine 1% = 11 mL. Medication's Wasted: Other = Versed 2 mg. Medication's Wasted: Other = Fentanyl 100 mcg. Total IV fluids: 30 mL. Post-op diagnosis: s/p IVC filter placement. Complications: none'. Estimated blood loss: 5mL-10mL. Responsiveness - Normal response to verbal stimuli; alert and oriented, PERRLA. Airway - Unaffected, no intervention required; spontaneous ventilation. Circulation: W/N/L, pulses unchanged. Nausea/Vomiting: No. Procedure completed. Patient transferred by bed to 1st floor. Vital chart was stopped. Access Site Site: Right Femoral vein Sheath Size: 6 Fr Hemostasis Method: Manual Compression Hemostasis Success: Successful I, the attending physician, have reviewed and verified all procedure medications. Yes, all medications given per verbal order Report Signatures Finalized by Braxton John MD on 09/20/2023 01:01 PM
--- NOTE | 2023-09-12 10:20 | P.PCN_ITS ---
Procedure Note: Date of procedure: 09/12/23 Pre-procedure diagnosis: Pulmonary embolism/DVT/ GI bleed Post-procedure diagnosis: same Procedure: IVC filter placement: We obtained access in right common femoral vein.? 6 [place] pigtail catheter was used to perform IVC venogram.? Renal veins were identified.? We then proceeded with placement of [place] IVC filter under fluoroscopic guidance below the renal veins. At this time, sheath was removed and pressure was held to attain hemostasis. Op report anesthesia: Local Performing Provider: Braxton John Estimated blood loss (mL): 5 Complications: None Condition: stable Disposition: floor Coding Level of Care Code Acute Code for Chg Fwd
[2023-09-12] MEDS: sennosides-docusate Tablet 1 TAB PEG-TUBE (10:40)
[2023-09-12] MEDS: carbidopa-levodopa 25-250mg Tablet 2 EACH PEG-TUBE ×3 (10:41→21:48)
[2023-09-12] MEDS: amiodarone 200 mg Tablet PO ×2 (10:41→17:47)
[2023-09-12] MEDS: midodrine 5 mg TABLET 10 MG PO ×3 (10:41→21:48)
[2023-09-12] MEDS: pantoprazole 40 mg SDV IVP ×2 (10:41→17:46)
[2023-09-12] MEDS: methylPREDNISolone sod succ 40 mg/mL INJ 20 MG IVP ×2 (10:42→17:47)
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
[2023-09-12] MEDS: iron sucrose 200 MG in sodium chloride 0.9% (100 ml) 100 ML 220 MG IV (16:37)
[2023-09-12] MEDS: peg /e-lyte soln 4,000 mL Btl 4000 ML G-TUBE (17:43)
[2023-09-12] MEDS: pyridostigmine 60 mg Tablet PO (17:47)
[2023-09-12 18:14] LABS: Hematocrit 27.2 % (37-53)
[2023-09-13] VITALS (18 sets, daily range): BP systolic 108–147; BP diastolic 65–90; PULSE 67–108; RESP 12–35; TEMP 36.1–36.8; O2SAT 88–100
[2023-09-13 01:26] LABS: Vancomycin Trough 21.1 ug/mL (10-15)
[2023-09-13] MEDS: levalbuterol 0.63 mg/3 mL Neb 0.630000000000000004 MG INHALATION ×3 (02:07→20:12)
[2023-09-13] MEDS: ipratropium 0.5 mg/2.5 mL Neb INHALATION ×3 (02:07→20:12)
[2023-09-13 04:30] LABS: Basophils # 0.1 10^3/uL (0.0-0.1); Basophils % 0.6 %; Eosinophils # 0.1 10^3/uL (0.0-0.8); Eosinophils % 0.4 %; Hematocrit 28.5 % (37-53); Lymphocytes # 1.5 10^3/uL (0.8-4.8); Lymphocytes % 8.4 %; Mean Corpuscular HGB Conc 31.9 g/dL (30-55); Mean Corpuscular Hemoglobin 29.6 pg (27-33); Mean Corpuscular Volume 92.8 fl (82-101); Mean Platelet Volume 9.7 fL (7.4-10.4); Monocytes # 0.8 10^3/uL (0.2-0.9); Monocytes % 4.6 %; Neutrophils # 13.01 10^3/uL (1.8-7.7); Neutrophils % 71.2 %; Nucleated Red Blood Cells # 0.9 /100WBC; Nucleated Red Blood Cells % 4.9 %; Platelet Count 273 10^3/cmm (157-399); Red Blood Count 3.07 10^6/uL (3.85-5.65); Red Cell Distribution Width 16.9 % (12.1-15.1); White Blood Count 18.28 10^3/uL (3.29-11.43)
[2023-09-13 04:56] LABS: Alanine Aminotransferase 33 U/L (0-41); Albumin Level 4.7 g/dL (3.5-5.2); Alkaline Phosphatase 81 U/L (40-130); Aspartate Amino Transferase 23 U/L (0-40); Blood Urea Nitrogen 19 mg/dL (8-23); Calcium 9.3 mg/dL (8.5-10.5); Carbon Dioxide 21 mmol/L (22-29); Chloride 106 mmol/L (98-107); Globulin 1.5 g/dL (1.3-4.6); Glucose 105 mg/dL (65-115); Osmolality Calculated 293 mOsm/kg (285-295); Sodium 140 mmol/L (136-145); Total Bilirubin 1.8 mg/dL (0.15-1.2); Total Protein 6.2 g/dL (6.6-8.7)
[2023-09-13] MEDS: vancomycin 1,250 MG/250 ML PIGGYBACK 250 MG IV (05:55)
[2023-09-13] MEDS: sodium chloride 0.9% 1,000 ML 75 ML IV ×2 (05:58→22:18)
[2023-09-13 06:26] LABS: Glucose Point of Care 101 mg/dL (70-110)
[2023-09-13] MEDS: levothyroxine 75 mcg Tablet PEG-TUBE (06:39)
[2023-09-13] MEDS: sucralfate 1 gm/10 mL Oral Liq UDC PO ×4 (06:39→22:19)
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
--- NOTE | 2023-09-13 08:29 | P.ANESASSM_ITS ---
Pre-Anesthetic Assessment Height/Weight: Height 1.8 m Weight 90.537 kg Temp Pulse Resp BP Pulse Ox O2 Del Method O2 Flow Rate 97.4 F L 108 H 18 147/76 93 Nasal Cannula 4 09/13/23 07:38 09/13/23 07:38 09/13/23 07:38 09/13/23 07:38 09/13/23 07:38 09/13/23 07:38 09/13/23 07:38 FiO2 45 09/09/23 09:40 Preop Diagnosis: Pulmonary embolism/DVT/Anemia Operation Date: 09/12/23 09:40 Proposed Procedures p IVC Filter Insertion(Not Applicable) - Braxton John M.D Operation Date: 09/13/23 08:00 Proposed Procedures p Colonoscopy(Not Applicable) - Eduardo Esquivel MD Social No alcohol and No tobacco Exam alert, oriented x 3, clear to auscultation bilaterally and regular rate & rhythm Airway Submandibular: within normal limits Cervical ROM: within normal limits Mallampati: Class II Pulmonary Exertional Dyspnea and Shortness of Breath PE CV/HEM Hypertension Neuropsych Parkinsons s/p deep brain stimulator Anesthetic Plan ASA status: 3E Anesthesia: MAC Medications/Allergies Home Medications Medication Instructions Recorded Confirmed Last Taken Type furosemide 20 mg tablet 10 mg PO QAM 08/22/19 09/04/23 Unknown History levothyroxine 75 mcg capsule 75 mcg PO DAILY 08/22/19 09/04/23 Unknown History tamsulosin 0.4 mg capsule 0.4 mg PO DAILY 08/22/19 09/04/23 Unknown History apixaban 5 mg tablet (Eliquis) See Rx Instructions .Route 09/04/23 Unknown Rx .COMPLEX #180 tabs carbidopa 25 mg-levodopa 250 mg 2 tab PO TID 09/05/23 09/05/23 Unknown History tablet docusate sodium 50 mg/5 mL oral 10 ml PO BID 09/05/23 09/05/23 Unknown History liquid doxazosin 1 mg tablet 1 mg PO DAILY 09/05/23 09/05/23 Unknown History metoprolol tartrate 25 mg tablet 25 mg PO BID 09/05/23 09/05/23 Unknown History multivitamin 1 tab PO DAILY 09/05/23 09/05/23 Unknown History rivastigmine tartrate 1.5 mg 1.5 mg PO DAILY 09/05/23 09/05/23 Unknown History capsule warfarin 3 mg tablet 3 mg PO DAILY 09/05/23 09/05/23 Unknown History Allergies Allergy/AdvReac Type Severity Reaction Status Date / Time adhesive Allergy rash Verified 09/03/23 14:38 Current Medications Generic Name Dose Route Start Last Admin Trade Name Juanq PRN Reason Stop Dose Admin Amiodarone HCl 200 mg 09/09/23 18:00 09/12/23 17:47 Amiodarone 200 Mg Tablet PO 200 mg BID JAIMEE Administration Budesonide 0.5 mg 09/07/23 10:00 09/13/23 07:35 Budesonide 0.5 Mg/2 Ml Neb INHALATION Not Given BID.RESPIRATORY JAIMEE Carbidopa/Levodopa 2 each 09/05/23 21:00 09/12/23 21:48 Carbidopa-Levodopa 25-250mg Tablet PEG-TUBE 2 each TID JAIMEE Administration Enoxaparin Sodium 90 mg 09/07/23 17:00 09/12/23 01:34 Enoxaparin 100 Mg/Ml Syringe 1 mg/kg (90 mg) Not Given SUBCUT Q12H JAIMEE Albumin Human 25 g in 100 mls @ 60 mls/hr 09/10/23 15:45 09/13/23 02:22 Albumin IV Infused Q8H JAIMEE Infusion Sodium Chloride 1,000 mls @ 75 mls/hr 09/12/23 02:45 09/13/23 05:58 Sodium Chloride 0.9% IV 75 mls/hr .[id number] JAIMEE Administration Vancomycin/PEG/NADA/Lysine/Water 1,250 mg in 250 mls @ 250 mls/hr 09/13/23 06:30 09/13/23 07:24 Vancocin IV Infused Q12H JAIMEE Infusion Ipratropium [place] 0.5 mg 09/07/23 14:00 09/13/23 07:35 Ipratropium 0.5 Mg/2.5 Ml Neb INHALATION Not Given Q6H.RESP JAIMEE Levalbuterol HCl 0.63 mg 09/07/23 14:00 09/13/23 07:35 Levalbuterol 0.63 Mg/3 Ml Neb INHALATION Not Given Q6H.RESP JAIMEE Levothyroxine Sodium 75 mcg 09/06/23 07:00 09/13/23 06:39 Levothyroxine 75 Mcg Tablet PEG-TUBE 75 mcg ACBREAKFAST JAIMEE Administration Methylprednisolone Sodium Succinate 20 mg 09/11/23 09:00 09/12/23 17:47 Methylprednisolone Sod Succ 40 Mg/Ml Inj IVP 20 mg BID JAIMEE Administration Metoprolol Tartrate 25 mg 09/10/23 09:30 09/10/23 20:58 Metoprolol Tartrate 50 Mg Tablet PEG-TUBE 25 mg BID@0900,2100 JAIMEE Administration Midodrine 10 mg 09/11/23 09:00 09/12/23 21:48 Midodrine 5 Mg Tablet PO 10 mg TID JAIMEE Administration Pantoprazole Sodium 40 mg 09/11/23 09:00 09/12/23 17:46 Pantoprazole 40 Mg Sdv IVP 40 mg BID JAIMEE Administration Pyridostigmine [place] 60 mg 09/12/23 18:00 09/12/23 17:47 Pyridostigmine 60 Mg Tablet PO 60 mg BID JAIMEE Administration Senna/Docusate Sodium 1 tab 09/06/23 09:00 09/12/23 10:40 Sennosides-Docusate Tablet PEG-TUBE 1 tab DAILY JAIMEE Administration Sucralfate 1 gm 09/11/23 17:00 09/13/23 06:39 Sucralfate 1 Gm/10 Ml Oral Liq Udc PO 1 gm AC&BEDTIME JAIMEE Administration PFSH Anesthesia Medical History On tube feeding diet Thyroid disease Afib Pacemaker Parkinson's Disease Surgical History History of surgery on arm Status post deep brain stimulator placement Family History Other Cancer Diabetes Hypertension Denies family history of CAD (coronary artery disease) Family history of premature coronary artery disease Stroke Social History Smoking and tobacco/nicotine status: former use of tobacco/nicotine Quit status (tobacco/nicotine): has quit using Year quit tobacco: 1986 Alcohol intake: current Alcohol intake frequency: 3 or more drinks per day Alcohol type: beer Substance/Drug Use: never Data Anesthesia 09/13/23 03:27 09/13/23 03:27 Short CBC 04/10/2909/11/23 09/12/23 Range/Units 14:51 23:25 02:04 WBC (3.29-11.43) 10^3/uL Hgb 8.00 L 8.30 L 7.30 L (11.27-16.99) g/dL Hct 25.7 L 25.6 L 22.9 L (37-53) % MCV (82-101) fl Plt Count (157-399) 10^3/cmm Neut % (Auto) % Neut # (Auto) (1.8-7.7) 10^3/uL 09/12/23 09/12/23 09/13/23 Range/Units 08:45 18:05 03:27 WBC 22.54 H 18.28 H (3.29-11.43) 10^3/uL Hgb 8.50 L 8.80 L 9.10 L (11.27-16.99) g/dL Hct 26.4 L 27.2 L 28.5 L (37-53) % MCV 93.0 92.8 (82-101) fl Plt Count 323 273 (157-399) 10^3/cmm Neut % (Auto) 83.9 71.2 % Neut # (Auto) 15.66 H 13.01 H (1.8-7.7) 10^3/uL BMP 09/12/23 09/13/23 08:45 03:27 Sodium 137 140 Potassium 4.3 5.0 Chloride 105 106 Carbon Dioxide 21 L 21 L BUN 28 H 19 Creatinine 0.7 0.7 Glucose 102 105 Calcium 8.2 L 9.3 Liver Function 09/12/23 09/13/23 Range/Units 08:45 03:27 Total Bilirubin 1.5 H 1.8 H (0.15-1.2) mg/dL AST 25 23 (0-40) U/L ALT 40 33 (0-41) U/L Alkaline Phosphatase 92 81 (40-130) U/L Albumin 3.7 4.7 (3.5-5.2) g/dL Blood Bank 09/11/23 17:15 Blood Type O Positive Rho(D) Type Rh positive Antibody Screen Negative Coags 09/12/23 02:56 PT 16.20 H INR 1.26 H APTT 28.1 Cardiac Studies: 2 Echocardiogram 09/04/23
--- NOTE | 2023-09-13 09:11 | P.PN_ITS ---
Subjective 2 Subjective: Patient is stable.Going for GI work up. access site not showing any large hematoma. Vitals/I&O/Wt Last Vital Signs Temp 97.4 F L 09/13/23 07:38 Pulse 108 H 09/13/23 07:38 Resp 18 09/13/23 07:38 BP 147/76 09/13/23 07:38 Pulse Ox 93 09/13/23 07:38 O2 Del Method Nasal Cannula 09/13/23 07:38 O2 Flow Rate 4 09/13/23 07:38 FiO2 45 09/09/23 09:40 09/12/23 09/13/23 09/13/23 22:59 06:59 14:59 Intake Total 1560 / 2686 1013.75 / 3699.75 250 / 250 Output Total 2500 / 2500 2600 / 5100 Balance -940 / 186 -1586.25 / -1400.25 250 / 250 Weight last 48 hrs Weight 199 lb 9.6 oz Physical Exam 2 Narrative: GENERAL: Patient is alert, awake and oriented x3. [] NECK: No jugular vein distension. [] HEENT: No cyanosis. No icterus. No pallor. [] HEART: Regular S1 and S2. No murmur, rub or gallop. [] LUNGS: Clear to auscultate bilaterally. [] CENTRAL NERVOUS SYSTEM: Grossly nonfocal. [] EXTREMITIES: Lower extremities with 1+ edema bilaterally. Urinary Catheter Management: Goldstein: Cath Placed During This Visit: yes Reason for Continuing Indwelling Catheter: Accurate Measurement of Urinary Output in Critically Ill Patients Urinary Catheter Date of Insertion: 09/04/23 Urinary Catheter Time of Insertion: 04:20 Data 09/14/23 04:50 09/14/23 04:50 A&P Assessment and plan (1) Pulmonary embolism: (2) Acute lower GI hemorrhage: Plan Patient had IVC filter placement yesterday. No complications. In future, if can tolerate anticoagulation/treated for GI bleed source, can consider retreival of filter. Thank you for involving us care of this patient. Please call with questions. Attestations 2 Medical Necessity Statement*: Care expected to cross 2 midnights. Coding Level of Care Code Acute Code for Chg Fwd Diagnoses Pulmonary embolism I26.99 Acute lower GI hemorrhage K92.2
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
--- NOTE | 2023-09-13 09:55 | ANE.PACU2 ---
Inpatient post-anesthesia follow up: Vital signs: Temperature 97 F Pulse Rate [Therap y Changed] 89 Pulse Rate [Curren t] 91 Pulse Rate 75 Respiratory Rate [ Therapy 18 Changed] Respiratory Rate [ Current] 24 Respiratory Rate 16 Blood Pressure 127/73 Pulse Oximetry [Th erapy 93 Changed] Pulse Oximetry [Cu rrent] 95 Pulse Oximetry 94 Oxygen Delivery Me thod Nasal Cannula Oxygen Flow Rate [ Therapy 8 Changed] Oxygen Flow Rate [ Current] 8 Oxygen Flow Rate 4 Fraction of Inspir ed Oxygen [ 45 Therapy Changed] Fraction of Inspir ed Oxygen [ 45 Current] Fraction of Inspir ed Oxygen 45 Hydration adequate: No Nausea and vomiting: No Pain level: 1 Mental status: Baseline
[2023-09-13] MEDS: midodrine 5 mg TABLET 10 MG PO ×3 (11:10→22:16)
[2023-09-13] MEDS: amiodarone 200 mg Tablet PO ×2 (11:19→17:05)
[2023-09-13] MEDS: carbidopa-levodopa 25-250mg Tablet 2 EACH PEG-TUBE ×3 (11:20→22:17)
[2023-09-13] MEDS: albumin 25 G/100 ML BAG 60 G IV ×3 (11:21→23:07)
[2023-09-13] MEDS: pantoprazole 40 mg SDV IVP ×2 (11:21→17:04)
[2023-09-13] MEDS: pyridostigmine 60 mg Tablet PO ×2 (11:22→17:05)
[2023-09-13 15:48] LABS: Hematocrit 25.3 % (37-53)
[2023-09-13] MEDS: budesonide 0.5 mg/2 mL Neb INHALATION (20:12)
[2023-09-13] MEDS: metoprolol tartrate 50 mg Tablet 25 MG PEG-TUBE (22:17)
[2023-09-14] VITALS (14 sets, daily range): BP systolic 99–122; BP diastolic 59–85; PULSE 66–102; RESP 16–25; TEMP 36.3–36.8; O2SAT 88–98
[2023-09-14] MEDS: levalbuterol 0.63 mg/3 mL Neb 0.630000000000000004 MG INHALATION ×4 (01:47→20:52)
[2023-09-14] MEDS: ipratropium 0.5 mg/2.5 mL Neb INHALATION ×4 (01:47→20:52)
[2023-09-14 05:28] LABS: Basophils # 0.1 10^3/uL (0.0-0.1); Basophils % 0.7 %; Eosinophils # 0.1 10^3/uL (0.0-0.8); Hematocrit 29.7 % (37-53); Lymphocytes # 1.4 10^3/uL (0.8-4.8); Lymphocytes % 10.5 %; Mean Platelet Volume 9.2 fL (7.4-10.4); Monocytes # 0.6 10^3/uL (0.2-0.9); Monocytes % 4.7 %; Neutrophils # 9.34 10^3/uL (1.8-7.7); Neutrophils % 71.6 %; Nucleated Red Blood Cells # 0.6 /100WBC; Nucleated Red Blood Cells % 4.8 %; Platelet Count 231 10^3/cmm (157-399); Red Blood Count 2.97 10^6/uL (3.85-5.65); Red Cell Distribution Width 17.7 % (12.1-15.1); White Blood Count 13.04 10^3/uL (3.29-11.43)
[2023-09-14 05:55] LABS: Alanine Aminotransferase 14 U/L (0-41); Alkaline Phosphatase 77 U/L (40-130); Aspartate Amino Transferase 27 U/L (0-40); Blood Urea Nitrogen 20 mg/dL (8-23); Calcium 8.8 mg/dL (8.5-10.5); Carbon Dioxide 21 mmol/L (22-29); Chloride 108 mmol/L (98-107); Globulin 1.3 g/dL (1.3-4.6); Glucose 74 mg/dL (65-115); Osmolality Calculated 291 mOsm/kg (285-295); Sodium 140 mmol/L (136-145); Total Protein 6.3 g/dL (6.6-8.7)
[2023-09-14] MEDS: vancomycin 1,250 MG/250 ML PIGGYBACK 250 MG IV ×2 (06:13→17:58)
[2023-09-14] MEDS: levothyroxine 75 mcg Tablet PEG-TUBE (06:15)
[2023-09-14] MEDS: sucralfate 1 gm/10 mL Oral Liq UDC PO ×4 (06:15→21:19)
--- NOTE | 2023-09-14 07:02 | P.PN_ITS ---
Subjective 2 Subjective: Tolerated EGD and colonoscopy well yesterday without identified source of bleeding. No signs or symptoms of further blood loss overnight. Vitals/I&O/Wt Last Vital Signs Temp 97.3 F L 09/14/23 04:00 Pulse 75 09/14/23 04:00 Resp 16 09/14/23 04:00 BP 111/85 09/14/23 04:00 Pulse Ox 95 09/14/23 04:00 O2 Del Method Nasal Cannula 09/14/23 04:00 O2 Flow Rate 4 09/14/23 01:52 FiO2 45 09/09/23 09:40 09/13/23 09/14/23 09/14/23 22:59 06:59 14:59 Intake Total 1100 / 1776 100 / 1876 Output Total 850 / 2150 350 / 2500 Balance 250 / -374 -250 / -624 Weight last 48 hrs Weight 199 lb 9.6 oz Physical Exam 2 Const: COMMON NORMALS: no acute distress, average body habitus, patient oriented x3 and alert GENERAL APPEARANCE: cooperative and comfortable HENMT: COMMON NORMALS: normocephalic, atraumatic, hearing grossly normal bilaterally, external ears normal and Normal external nose present HEAD & SCALP: normocephalic and atraumatic NOSE: Normal external nose present E XTERNAL EAR: Yes external ears normal Eye: GENERAL EYE: appearance normal, both eyes and all related structures A LIGNMENT: Yes alignment normal Neck/C-Spine: GENERAL: Yes normal visual inspection and Yes trachea midline Resp: COMMON NORMALS: normal respiratory effort, No retractions and No use of accessory muscles EFFORT & INSPECTION: Yes able to speak in complete sentences and Yes symmetric chest movement Cardio: COMMON NORMALS: regular rate and regular rhythm RATE: regular rate RHYTHM: regular rhythm PERIPHERAL PULSES: radial pulses present GI: COMMON NORMALS: Normal to inspection, nondistended, normoactive bowel sounds present and Soft to palpation PALPATION: Yes Soft to palpation, No Tenderness to palpation present (GI) and No Guarding due to palpation present (GI) Neuro: COMMON NORMALS: patient oriented x3 SENSORIUM/ORIENTATION: Yes alert Urinary Catheter Management: Goldstein: Cath Placed During This Visit: yes Reason for Continuing Indwelling Catheter: Accurate Measurement of Urinary Output in Critically Ill Patients Urinary Catheter Date of Insertion: 09/04/23 Urinary Catheter Time of Insertion: 04:20 Data 09/14/23 04:50 09/14/23 04:50 A&P Assessment and plan (1) Acute lower GI hemorrhage: Tolerated UGI and Colonoscopy well yesterday without identified source of bleeding, likely diverticular bleed which has stopped with reversal of anticoagulation. -Biopsies of multiple small colon polyps pending -Remainder of care per primary medical service Attestations 2 Medical Necessity Statement*: Requires hospitalization for IF resuscitation and upper and lower endoscopies for hemodynamic instability due to acute blood loss anemia due to GI bleed due to or exacerbated by pharmacologic coagulopathy. Coding Level of Care Code Acute Code for g Fwd Diagnoses Acute lower GI hemorrhage K92.2
[2023-09-14] MEDS: budesonide 0.5 mg/2 mL Neb INHALATION ×2 (07:49→20:52)
[2023-09-14] MEDS: albumin 25 G/100 ML BAG 60 G IV ×3 (11:18→23:11)
[2023-09-14] MEDS: pantoprazole 40 mg SDV IVP ×2 (11:18→17:57)
[2023-09-14] MEDS: midodrine 5 mg TABLET 10 MG PO ×3 (11:19→21:18)
[2023-09-14] MEDS: methylPREDNISolone sod succ 40 mg/mL INJ 20 MG IVP (11:19)
[2023-09-14] MEDS: carbidopa-levodopa 25-250mg Tablet 2 EACH PEG-TUBE ×3 (11:19→21:19)
[2023-09-14] MEDS: amiodarone 200 mg Tablet PO ×2 (11:19→17:57)
[2023-09-14] MEDS: pyridostigmine 60 mg Tablet PO ×2 (11:19→17:57)
[2023-09-14] MEDS: metoprolol tartrate 50 mg Tablet 25 MG PEG-TUBE ×2 (11:20→21:19)
--- NOTE | 2023-09-14 13:40 | P.PN_ITS ---
Subjective 2 Subjective: Patient is doing well today no new complaints noted. No acute overnight events noted. He admits feeling hungry. He is still on clear liquid diet. Medications: Reviewed: Yes Vitals/I&O/Wt Last Vital Signs Temp 97.3 F L 09/14/23 12:00 Pulse 91 09/14/23 12:00 Resp 24 H 09/14/23 12:00 BP 107/72 09/14/23 12:00 Pulse Ox 91 09/14/23 12:00 O2 Del Method Nasal Cannula 09/14/23 12:00 O2 Flow Rate 4 09/14/23 09:26 FiO2 45 09/09/23 09:40 09/13/23 09/14/23 09/14/23 22:59 06:59 14:59 Intake Total 1100 / 1776 100 / 1876 Output Total 850 / 2150 350 / 2500 Balance 250 / -374 -250 / -624 Weight last 48 hrs Weight 90.537 kg Physical Exam 2 Narrative: He is alert awake oriented x 3 sitting comfortably in chair Chest clear to auscultation bilaterally Cardiovascular normal heart sounds Abdomen soft nontender nondistended normal bowel sounds. PEG in place Extremities bilateral 1+ pitting edema present Urinary Catheter Management: Goldstein: Cath Placed During This Visit: yes Reason for Continuing Indwelling Catheter: Accurate Measurement of Urinary Output in Critically Ill Patients Urinary Catheter Date of Insertion: 09/04/23 Urinary Catheter Time of Insertion: 04:20 Data 09/14/23 04:50 09/14/23 04:50 A&P Assessment and plan (1) Physical deconditioning: (2) Acute anemia: (3) Acute lower GI hemorrhage: (4) Respiratory failure: (5) Pulmonary embolism: (6) Shortness of breath: (7) Parkinson's Disease: Qualifiers: Dyskinesia presence: without dyskinesia Fluctuating manifestations: w ith fluctuating manifestations Qualified Code(s): G20.A2 - Parkinson's disease without dyskinesia, with fluctuations Plan (1) Acute anemia: Most likely cause of hypotension. Overall received 3 units of PRBC. Hemoglobin stable at 8.9. S/p endoscopy and colonoscopy which showed nonbleeding diverticuli. Continue to finish IV iron course for 5 days. Restart bolus PEG tube feeds Continue with IV Protonix twice daily, Carafate ACHS. (2) Patient does have pulmonary embolism. Also has bilateral extensive DVT. Subcutaneous Lovenox on hold in view of lower GI bleed H&H stable for now He is s/p IVC filter Will need oral anticoagulation if hemoglobin stable for next 2 weeks. (3) Respiratory failure: Likely secondary to COPD exacerbation and bilateral PE ,improving. Stable at 4 L of oxygen supplementation. Continue with ipratropium and Xopenex every 6 hours, Pulmicort twice daily. Stop Mucomyst. Wean Solu-Medrol 20 mg IV daily. Plan to transition to oral steroids within next 24 to 48 hour Aggressive pulmonary toilet and incentive spirometry. Out of bed to chair. (4)A-fib with RVR: Heart rate better controlled. Continue with amiodarone. Anticoagulation as above. (5)Parkinson's disease continue Carbidopa/levodopa, short acting formulation ordered to allow administration through PEG tube. Patient is DNR/DNI Protonix for PUD prophylaxis Continue physical therapy. Out of bed to chair. Attestations 2 Medical Necessity Statement*: He needs continued hospitalization for monitoring of H&H and oxygen requirement for acute respiratory failure. Time Spent in Patient Care: 30 minutes Coding Level of Care Code Acute Code for Chg Fwd Moderate MDM includes number and complexity of problems actively addressed during encounter as documented Diagnoses Physical deconditioning R53.81 Acute anemia D64.9 Acute lower GI hemorrhage K92.2 Respiratory failure J96.90 Pulmonary embolism I26.99 Shortness of breath R06.02 Parkinson's disease without dyskinesia, with fluctuating manifestations G20.A2 Dyskinesia presence: without dyskinesia Fluctuating manifestations: with fluctuating manifestations Time Spent (min) 30
[2023-09-14] MEDS: sodium chloride 0.9% 1,000 ML 75 ML IV (15:07)
[2023-09-15] VITALS (9 sets, daily range): BP systolic 93–109; BP diastolic 58–64; PULSE 71–85; RESP 17–28; TEMP 36.4–36.9; O2SAT 93–96; BMI 27.8
[2023-09-15] MEDS: ipratropium 0.5 mg/2.5 mL Neb INHALATION ×2 (01:56→08:41)
[2023-09-15] MEDS: levalbuterol 0.63 mg/3 mL Neb 0.630000000000000004 MG INHALATION ×2 (01:56→08:41)
[2023-09-15] MEDS: sodium chloride 0.9% 1,000 ML 75 ML IV (04:31)
[2023-09-15] MEDS: levothyroxine 75 mcg Tablet PEG-TUBE (06:10)
[2023-09-15] MEDS: sucralfate 1 gm/10 mL Oral Liq UDC PO (06:10)
--- NOTE | 2023-09-15 06:36 | PC.NURSE ---
Called and spoke to ortiz in pharmacy regarding vanco trough of 22. 6:30 vanco dose was not given per pharmacy.
[2023-09-15] MEDS: budesonide 0.5 mg/2 mL Neb INHALATION (08:41)
[2023-09-15 09:09] LABS: Mean Corpuscular HGB Conc 32.3 g/dL (30-55); Mean Corpuscular Volume 95.9 fl (82-101); Mean Platelet Volume 9.4 fL (7.4-10.4); Platelet Count 249 10^3/cmm (157-399); Red Blood Count 2.71 10^6/uL (3.85-5.65); Red Cell Distribution Width 17.8 % (12.1-15.1); White Blood Count 15.45 10^3/uL (3.29-11.43)
[2023-09-15] MEDS: midodrine 5 mg TABLET 10 MG PO (09:23)
[2023-09-15] MEDS: pantoprazole 40 mg SDV IVP (09:23)
[2023-09-15] MEDS: albumin 25 G/100 ML BAG 60 G IV (09:23)
[2023-09-15] MEDS: methylPREDNISolone sod succ 40 mg/mL INJ 20 MG IVP (09:24)
[2023-09-15] MEDS: amiodarone 200 mg Tablet PO (09:24)
[2023-09-15] MEDS: carbidopa-levodopa 25-250mg Tablet 2 EACH PEG-TUBE (09:24)
[2023-09-15] MEDS: sennosides-docusate Tablet 1 TAB PEG-TUBE (09:24)
[2023-09-15] MEDS: metoprolol tartrate 50 mg Tablet 25 MG PEG-TUBE (09:24)
[2023-09-15] MEDS: pyridostigmine 60 mg Tablet PO (09:24)
--- NOTE | 2023-09-15 09:26 | P.DS_ITS ---
Discharge Providers Date of Admission: 09/03/23 19:22 Date of Discharge: September 15, 2023 Attending Provider at Admission: Jenn Giles MD Attending Provider at Discharge: Sanjuana Vazquez MD Consults: Surgery consult for EGD and colonoscopy Barium swallow Primary Care Provider: Lance Davila MD Diagnoses at Discharge Discharge Diagnosis (1) Physical deconditioning: Status: Acute (2) Acute anemia: Status: Acute (3) Acute lower GI hemorrhage: Status: Acute (4) Respiratory failure: Status: Acute (5) Pulmonary embolism: Status: Acute (6) Shortness of breath: Status: Acute (7) Parkinson's Disease: Status: Acute Qualifiers: Dyskinesia presence: without dyskinesia Fluctuating manifestations: with fluctuating manifestations Qualified Code(s): G20.A2 - Parkinson's disease without dyskinesia, with fluctuations Reason for Visit Reason for Visit: chest pain/ SOB Brief History: Farhat Guardado is a 82 year old male here from [facility], he was at neurology clinic today following up with Dr. Rios for his Parkinson's disease, rapid response was called when he started complaining of left-sided chest pain which lasted for about a few minutes, in the ER CT chest revealed PE with right heart strain, he was in A-fib RVR subtherapeutic he was started on heparin drip. Hospital Course Hospital Course Farhat Guardado is a 82 year old male here from [facility], he was at neurology clinic today following up with Dr. Rios for his Parkinson's disease, rapid response was called when he started complaining of left-sided chest pain which lasted for about a few minutes, in the ER CT chest revealed PE with right heart strain, he was in A-fib RVR subtherapeutic he was started on heparin drip. He was also found to have extensive bilateral DVT, but then his H&H started dropping and was found to have stools positive for Hemoccult. Subsequently he had a EGD and colonoscopy done which showed non diverticular bleed. He was transfused 3 units PRBC and heparin drip was discontinued. In view of GI bleed and the need for anticoagulation, he received an IVC filter. H&H is stable for now with hemoglobin of 9. He also received a barium swallow which showed esophageal dysmotility but no oropharyngeal cause for questionable aspiration . He had respiratory failure secondary to bilateral pneumonia and also received IV vancomycin and Zosyn .he is doing well now and started on PEG feeds, at bolus of 200 cc 3 times a day Plan to discharge him to [facility] and continue his home medications Follow-up PCP in 2 weeks and if H&H is stable, plan to start on p.o. Eliquis for anticoagulation. Physical Exam Narrative: He is alert awake oriented x 3 sitting comfortably in chair Chest clear to auscultation bilaterally Cardiovascular normal heart sounds Abdomen soft nontender nondistended normal bowel sounds. PEG in place Extremities bilateral 1+ pitting edema present Urinary Catheter Management: Goldstein: Cath Placed During This Visit: yes Reason for Continuing Indwelling Catheter: Acute Urinary Retention or Obstruction Urinary Catheter Date of Insertion: 09/04/23 Urinary Catheter Time of Insertion: 04:20 Discharge Data Studies Completed and Pending Completed Studies During Hospitalization Category Date Time Status CT angio chest PE protcl [id number] Stat Cat Scan 09/03/23 16:39 Completed CTA chest [CT angio chest PE protcl [id number]] Routine Cat Scan 09/07/23 09:53 Completed CXRP [XR chest 1V portable [id number]] Routine Exams 09/06/23 10:21 Completed Modified barium swallow [FL barium swallow modifd [id number] Exams 09/10/23 09:18 Completed ] Routine XR chest 1V portable [id number] Routine Exams 09/09/23 08:32 Completed XR chest 1V portable [id number] Stat Exams 09/03/23 16:39 [place] [id number] Routine Ultrasound 09/04/23 07:23 Completed CV. 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 Routine Exams 09/12/23 09:39 Taken CBC Auto Diff [Complete Blood Count w/Auto] Stat Lab 09/15/23 08:55 Results Leukocyte Reduced RBC Stat Lab 09/11/23 17:15 Results Type and Screen Stat Lab 09/11/23 17:15 Results Pathology: Surgical [PTH] Routine Pth 09/13/23 09:13 Received Laboratory Results WBC 13.04 10^3/uL (3.29-11.43) H 09/14/23 04:50 Corrected WBC Cancelled 09/03/23 17:36 RBC 2.97 10^6/uL (3.85-5.65) L 09/14/23 04:50 Hgb 8.90 g/dL (11.27-16.99) L 09/14/23 04:50 Hct 29.7 % (37-53) L 09/14/23 04:50 MCV 100.0 fl (82-101) 09/14/23 04:50 MCH 30.0 pg (27-33) 09/14/23 04:50 MCHC 30.0 g/dL (30-55) D 09/14/23 04:50 RDW 17.7 % (12.1-15.1) H 09/14/23 04:50 Plt Count 231 10^3/cmm (157-399) 09/14/23 04:50 MPV 9.2 fL (7.4-10.4) 09/14/23 04:50 Gran % Cancelled 09/03/23 17:36 Neut % (Auto) 71.6 % 09/14/23 04:50 Lymph % (Auto) 10.5 % 09/14/23 04:50 [place] % (Auto) 4.7 % 09/14/23 04:50 Eos % (Auto) 1.0 % 09/14/23 04:50 Baso % (Auto) 0.7 % 09/14/23 04:50 Neut # (Auto) 9.34 10^3/uL (1.8-7.7) H 09/14/23 04:50 Lymph # (Auto) 1.4 10^3/uL (0.8-4.8) 09/14/23 04:50 [place] # (Auto) 0.6 10^3/uL (0.2-0.9) 09/14/23 04:50 Eos # (Auto) 0.1 10^3/uL (0.0-0.8) 09/14/23 04:50 Baso # (Auto) 0.1 10^3/uL (0.0-0.1) 09/14/23 04:50 Absolute Gran (auto) Cancelled 09/03/23 17:36 Nucleated RBC % (auto) 4.8 % 09/14/23 04:50 Total Counted 100 (0-100) 09/11/23 03:00 Atypical Lymphs % Not Reportable 09/11/23 03:00 Absolute Neutrophils 17.0 10^3/cmm (1.4-6.5) H 09/11/23 03:00 Segmented Neutrophils 79 % 09/11/23 03:00 Abs Segm Neuts (Man) 16.4 10/cmm (1.6-7.1) H 09/11/23 03:00 Band Neutrophils 3.0 % 09/11/23 03:00 Abs Band Neuts (Man) 0.6 10^3/cmm (0.0-1.2) 09/11/23 03:00 Lymphocytes (Manual) 11 % 09/11/23 03:00 Monocytes (Manual) 2.0 % 09/11/23 03:00 Absolute Monocytes 0.4 10^3/cmm (0.1-0.6) 09/11/23 03:00 Eosinophils (Manual) 0 % 09/11/23 03:00 Absolute Eosinophils 0.0 10^3/cmm (0.0-0.7) 09/11/23 03:00 Basophils (Manual) 0.0 % 09/11/23 03:00 Absolute Basophils 0.0 10^3/cmm (0.0-0.2) 09/11/23 03:00 Myelocytes 5.0 % 09/11/23 03:00 Nucleated RBCs # 0.6 /100WBC 09/14/23 04:50 Platelet Estimate Normal (Normal) 09/11/23 03:00 Anisocytosis 1+ H 09/11/23 03:00 PT 16.20 SECONDS (12.1-14.9) H 09/12/23 02:56 INR 1.26 (0.8-1.2) H 09/12/23 02:56 APTT 28.1 SECONDS (23.9-36.7) 09/12/23 02:56 Specimen Type Arterial 09/07/23 09:16 Sample Site Radial, left 09/07/23 09:16 ABG pH 7.50 (7.35-7.45) H 09/07/23 09:16 ABG pCO2 31.7 mmHg (35-45) L 09/07/23 09:16 ABG pO2 56.4 mmHg (80.0-100.0) L 09/07/23 09:16 ABG HCO3 24.9 mmol/L (22-26) 09/07/23 09:16 ABG Base Excess 2.1 mmol/L (-2.0-2.0) H 09/07/23 09:16 Marcelo Test Pos 09/07/23 09:16 Hematocrit 32.1 % (42-52) L 09/07/23 09:16 O2 Delivery Device Nc 09/07/23 09:16 O2 Liters/Min 12.0 % 09/07/23 09:16 Business Support Coordinator ID Walshirley 09/07/23 09:16 Sodium 140 mmol/L (136-145) 09/14/23 04:50 Potassium 4.0 mmol/L (3.5-5.1) 09/14/23 04:50 Chloride 108 mmol/L (98-107) H 09/14/23 04:50 Carbon Dioxide 21 mmol/L (22-29) L 09/14/23 04:50 Anion Gap 15.0 (5-19) 09/14/23 04:50 BUN 20 mg/dL (8-23) 09/14/23 04:50 Creatinine 0.7 mg/dL (0.7-1.2) 09/14/23 04:50 GFR Calculation Not Reportable 09/14/23 04:50 Glucose 74 mg/dL (65-115) 09/14/23 04:50 POC Glucose 101 mg/dL (70-110) 09/13/23 06:12 Estimat Average Glucose 88 09/08/23 03:02 Hemoglobin A1c 4.7 % (4.0-6.0) 09/08/23 03:02 Calculated Osmolality 291 mOsm/kg (285-295) 09/14/23 04:50 Calcium 8.8 mg/dL (8.5-10.5) 09/14/23 04:50 Phosphorus 3.0 mg/dL (2.5-4.5) 09/10/23 03:05 Magnesium 2.4 mg/dL (1.7-2.3) H 09/10/23 03:05 Iron 19 ug/dL (59-158) L 09/07/23 06:11 TIBC 119 mcg/dl 09/07/23 06:11 % Saturation 15.9 % (20-50) L 09/07/23 06:11 Unsat Iron Binding 100 ug/dL (112-347) L 09/07/23 06:11 Total Bilirubin 2.0 mg/dL (0.15-1.2) H 09/14/23 04:50 AST 27 U/L (0-40) 09/14/23 04:50 ALT 14 U/L (0-41) 09/14/23 04:50 Alkaline Phosphatase 77 U/L (40-130) 09/14/23 04:50 Troponin T Baseline < 6 ng/L (0-15) 09/03/23 17:36 Troponin T 120 Minute 6.40 ng/L (0-15) 09/03/23 19:08 Delta Troponin T 0.90985 ABS# (0-10) 09/03/23 19:08 Troponin T Hi Sens 6Hr 7.35 ng/L (0-15) 09/03/23 23:48 Troponin T Hi Sens 6Hr Delta 1.53721 ng/L (0-12) 09/03/23 23:48 C-Reactive Protein 153.0 mg/L (0.0-4.9) H 09/04/23 03:11 NT-Pro-B Natriuret Pep 1431 pg/mL (0-450) H 09/03/23 17:36 Total Protein 6.3 g/dL (6.6-8.7) L 09/14/23 04:50 Albumin 5.0 g/dL (3.5-5.2) 09/14/23 04:50 Globulin 1.3 g/dL (1.3-4.6) 09/14/23 04:50 Triglycerides 54 mg/dL (0-150) 09/08/23 03:02 Cholesterol 110 mg/dL (0-200) 09/08/23 03:02 LDL Cholesterol, Calc 66 mg/dL (50-129) 09/08/23 03:02 Total VLDL Cholesterol 11 mg/dL (0-30) 09/08/23 03:02 HDL Cholesterol 33 mg/dL (60-100) L 09/08/23 03:02 Cholesterol/HDL Ratio 3.33 mg/dL (1.0-5.00) 09/08/23 03:02 Vitamin B12 551 pg/mL (232-1245) 09/03/23 19:08 Folate 13.5 ng/mL (4.5-32.2) 09/08/23 03:02 Procalcitonin 0.15 ng/mL (0-0.5) 09/07/23 06:11 TSH 1.00 uIU/mL (0.27-4.20) 09/03/23 17:36 Urine Color Straw (Yellow) 09/07/23 15:45 Urine Appearance Clear (CLEAR) 09/07/23 15:45 Urine pH 7 (5-7) 09/07/23 15:45 Ur Specific Leeper 1.005 (1.005-1.030) 09/07/23 15:45 Urine Protein Neg (Negative) 09/07/23 15:45 Urine Glucose (UA) Norm (Normal) 09/07/23 15:45 Urine Ketones Negative (Negative) 09/07/23 15:45 Urine Blood 2+ (Negative) H 09/07/23 15:45 Urine Nitrate Negative (Negative) 09/07/23 15:45 Urine Bilirubin Neg (Negative) 09/07/23 15:45 Urine Urobilinogen Norm mg/dL (Negative) 09/07/23 15:45 Ur Leukocyte Esterase Negative (Negative) 09/07/23 15:45 Urine RBC 5-10 /hpf (0-2) H 09/07/23 15:45 Urine WBC None /hpf (0-5) 09/07/23 15:45 Ur Squamous Epith Cells None /hpf (0-5) 09/07/23 15:45 Amorphous Sediment Not Reportable 09/07/23 15:45 Urine Bacteria Trace /hpf (NONE) 09/07/23 15:45 Vancomycin Trough 22.0 ug/mL (10-15) H 09/15/23 05:27 C. difficile (PCR) Negative (Negative) 09/11/23 15:15 Coronavirus 229E (PCR) Not detected (NOT DETECT) 09/05/23 03:39 RSV Type A (PCR) Detected (NOT DETECT) A 09/05/23 05:58 RSV Type B (PCR) Not detected (NOT DETECT) 09/05/23 05:58 SARS-CoV-2 (PCR) Not detected (NOT DETECT) 09/05/23 03:39 MRSA (PCR) Not detected (NOT DETECTED) 09/09/23 09:52 Blood Type O Positive 09/11/23 17:15 Rho(D) Type Rh positive 09/11/23 17:15 Antibody Screen Negative 09/11/23 17:15 Crossmatch See Detail 09/11/23 17:15 Procedures Performed EGD and colonoscopy Barium swallow Vitals Last Vital Signs Temp 97.6 F 09/15/23 07:21 Pulse 75 09/15/23 08:57 Resp 17 09/15/23 08:35 BP 101/60 09/15/23 07:21 Pulse Ox 94 09/15/23 08:35 O2 Del Method Nasal Cannula 09/15/23 08:35 O2 Flow Rate 4 09/15/23 08:35 FiO2 45 09/09/23 09:40 Discharge Plan Discharge Patient Disposition: Xfer SNF Condition: Stable Prescriptions: New ferrous sulfate 325 mg (65 mg iron) tablet 325 mg PO DAILY Qty: 60 0RF Continued levothyroxine 75 mcg capsule 75 mcg PO DAILY tamsulosin 0.4 mg capsule 0.4 mg PO DAILY furosemide 20 mg tablet 10 mg PO QAM metoprolol tartrate 25 mg Tablet 25 mg PO BID carbidopa-levodopa 25-250 mg Tablet 2 tab PO TID Rx Instructions: Give 2 tab via PEG tube multivitamin Tablet 1 tab PO DAILY Rx Instructions: Give via PEG tube rivastigmine tartrate 1.5 mg Capsule 1.5 mg PO DAILY docusate sodium 50 mg/5 mL Liquid 10 ml PO BID doxazosin 1 mg Tablet 1 mg PO DAILY Discontinued warfarin 3 mg Tablet 3 mg PO DAILY Discharge Orders: Discharge Order (Routine); Ordered 09/15/23 Ordered By: Sanjuana Vazquez Referrals: [facility] [Outside] Lance Davila MD [Primary Care Provider] - 4-7 days Discharge Diet: Advance as tolerated, Clear Liquid and Resume prior tube feeds Discharge Activity: Increase activity as tolerated Patient Instructions: Iron Supplements (By mouth), Apixaban (By mouth) (Eliquis), Anemia (DC), GI Discharge Instructions, Opioid Safety Discharge Attestations Time Spent in Discharge Care*: less than 30 min Status at Discharge: Overall status at discharge: patient is progressing back to baseline Quality Metrics Clinical Quality Measures [ No reported AMI, CVA or VTE this stay] Coding Level of Care Code Acute Code for Chg Fwd Diagnoses Physical deconditioning R53.81 Acute anemia D64.9 Acute lower GI hemorrhage K92.2 Respiratory failure J96.90 Pulmonary embolism I26.99 Shortness of breath R06.02 Parkinson's disease without dyskinesia, with fluctuating manifestations G20.A2 Dyskinesia presence: without dyskinesia Fluctuating manifestations: with fluctuating manifestations Time Spent (min) 30
[2023-09-15 09:53] LABS: Absolute Eosinophils 0.2 10^3/cmm (0.0-0.7); Absolute Neutrophil 12.5 10^3/cmm (1.4-6.5); Absolute Segmented Neutrophil 12.5 10/cmm (1.6-7.1); Anisocytosis 1+; Eosinophils 1 %; Lymphocytes 12 %; Macrocytosis 1+; Monocytes Absolute 0.3 10^3/cmm (0.1-0.6); Platelet Estimate Normal (Normal); Polychromasia 1+; Segmented Neutrophils 81 %; Slide Review Slide Review Perform; Total Cells Counted 100 (0-100)
[2023-09-15 10:35] LABS: SARS Covid-2 Antigen negative (Negative)
--- NOTE | 2023-09-15 10:45 | PC.NURSE ---
Report called to [facility]. DIL here and made aware that pt will be transported back to [facility] today
--- NOTE | 2023-09-15 13:47 | PC.NURSE ---
Daughter in law here for transport to [facility]. Per Case MGT. will send one of our oxygen tanks with pt. [facility] has agreed to bring tank back on Thursday of this week. Per Rut RT, one tank is enough for transport to [facility]. DIL advised to go straight there. NO smoking in vehicle. She states that she does not smoke. NH packet sent with daughter in law as well as all pt. belongings. Pt to private vehicle via wheelchair.
== END 2023-09-15 13:52 | disposition skilled nursing facility (03) | DRG 175 ==
LOC: ER 19:35 → CSU 19:48
PROVIDERS: Family Medicine; Internal Medicine; Student in an Organized Health Care Education/Training Program; Surgery; Admitting Provider Internal Medicine; Emergency Provider Emergency Medicine; PCP Obstetrics & Gynecology; Visit Provider Internal Medicine
PROC: 06H03DZ Insertion of Intraluminal Device into Inferior Vena Cava, Percutaneous Approach (ICD-10-PCS; CPT 37191; principal; 2023-09-12 09:40)
PROC: 0DJD8ZZ Inspection of Lower Intestinal Tract, Via Natural or Artificial Opening Endoscopic (ICD-10-PCS; CPT 45378; principal; 2023-09-13 08:00)
PROC: 0DJ08ZZ Inspection of Upper Intestinal Tract, Via Natural or Artificial Opening Endoscopic (ICD-10-PCS; CPT 43235; 2023-09-13 08:00)
DX: I26.99 Other pulmonary embolism without acute cor pulmonale (principal); I50.31 Acute diastolic (congestive) heart failure; K57.31 Diverticulosis of large intestine without perforation or abscess with bleeding; J69.0 Pneumonitis due to inhalation of food and vomit; J44.0 Chronic obstructive pulmonary disease with (acute) lower respiratory infection; J44.1 Chronic obstructive pulmonary disease with (acute) exacerbation; I82.413 Acute embolism and thrombosis of femoral vein, bilateral; I82.431 Acute embolism and thrombosis of right popliteal vein; J20.5 Acute bronchitis due to respiratory syncytial virus; D12.7 Benign neoplasm of rectosigmoid junction; G20.A2 Parkinson's disease without dyskinesia, with fluctuations; I48.91 Unspecified atrial fibrillation; R79.1 Abnormal coagulation profile; Z66 Do not resuscitate; E03.9 Hypothyroidism, unspecified; F10.90 Alcohol use, unspecified, uncomplicated; D12.4 Benign neoplasm of descending colon; D12.8 Benign neoplasm of rectum; K44.9 Diaphragmatic hernia without obstruction or gangrene; B95.62 Methicillin resistant Staphylococcus aureus infection as the cause of diseases classified elsewhere; D64.9 Anemia, unspecified; I95.9 Hypotension, unspecified; R09.02 Hypoxemia; Z11.52 Encounter for screening for COVID-19; Z95.0 Presence of cardiac pacemaker; Z96.82 Presence of neurostimulator; Z87.891 Personal history of nicotine dependence
CPT/HCPCS: 36010; 36415; 36416; 36430; 36600; 37191; 45380; 51702; 71045; 71275; 74230; 80048; 80053; 80061; 80202; 81001; 82274; 82607; 82746; 82803; 82962; 83036; 83540; 83550; 83735; 83880; 84100; 84145; 84443; 84484; 85007; 85014; 85018; 85025; 85610; 85730; 86140; 86403; 86850; 86900; 86920; 87070; 87077; 87186; 87205; 87426; 87449; 87493; 87635; 87641; 87801; 88305; 92507; 92523; 92526; 92610; 92611; 93005; 93306; 93970; 94640; 96365; 96372; 96375; 96376; 97110; 97116; 97161; 97165; 97530; 97535; 99215; 99285; A4222; A9270; C1769; C1880; C1887; C1894; C9113; J0282; J0283; J1644; J1650; J1756; J1940; J2250; J2543; J2704; J2920; J3010; J3370; J3490; J7030; J7608; J7614; J7626; J7644; P9016; P9046; Q9967

== ENCOUNTER 2023-09-19 11:27 | Emergency (ER) | payer MEDICARE, MEDICAID, SELFPAY ==
[2023-09-19 11:29] VITALS: BP 119/73; PULSE 107; RESP 24; TEMP 36.6; O2SAT 96
--- NOTE | 2023-09-19 11:34 | USR_ITS ---
PROCEDURE INFORMATION: Exam: US Duplex Lower Extremity Veins, Bilateral Exam date and time: 09/19/2023 12:08 PM Age: 83 years old Clinical indication: Pain; Leg, lower; Bilateral; Additional info: Bilateral lower extremity pain and swelling. History of dvt TECHNIQUE: Imaging protocol: Real-time duplex ultrasound of the bilateral extremities with 2-D abbasi scale, color Doppler flow and spectral waveform analysis including responses to compression and other maneuvers (when performed) with image documentation. Complete exam focused on the lower extremity veins. COMPARISON: No relevant prior studies available. FINDINGS: Right deep veins: Partial thrombus of common femoral vein. Gastrosaphenous vein junction is patent. Complete thrombosis right femoral and popliteal veins. Thrombosis of peroneal and posterior tibial veins. Left deep veins: Partial thrombosis of common femoral vein. Complete thrombus of femoral, popliteal veins. Calf veins are patent. Gastrosaphenous vein junction is patent. Superficial veins: Greater saphenous veins at the saphenofemoral junctions are patent bilaterally without thrombus. Soft tissues: Unremarkable. US/[place] [id number] IMPRESSION: Bilateral acute deep vein thrombosis. THIS REPORT CONTAINS FINDINGS THAT MAY BE CRITICAL TO PATIENT CARE. The findings were verbally communicated via telephone conference with MIKE Shanks at 12:52 PM CDT on 09/19/2023. The findings were acknowledged and understood.
--- NOTE | 2023-09-19 11:36 | XRR_ITS ---
PROCEDURE INFORMATION: Exam: XR Chest Exam date and time: 09/19/2023 11:45 AM Age: 83 years old Clinical indication: Shortness of breath TECHNIQUE: Imaging protocol: Radiologic exam of the chest. Views: 1 view. COMPARISON: CR XR chest 1V portable [id number] 09/09/2023 7:48 AM FINDINGS: Tubes, catheters and devices: Left-sided pacemaker in place. A stimulator type device in right chest with leads projecting over right neck is similar to previous study. Lungs: Infiltrates in bilateral lower lobes laterally. Pleural spaces: Unremarkable. No pleural effusion. No pneumothorax. Heart/Mediastinum: Stable. Bones/joints: Stable. Internal fixation left humerus noted. XR/XR chest 1V [id number] IMPRESSION: Infiltrates in bilateral lower lobes laterally, possibly worsening compared to previous study, evaluation limited by overlying stimulator device.
--- NOTE | 2023-09-19 11:37 | ECG_ITS ---
[facility] Test Date: 2023-09-19 Pat Name: Farhat Guardado Department: Room: Gender: Male [employer] Employee: : [id number] Requested By: Caitlin Culver Order Number: [id number] Jessica MD: Figueroa Guardado M.D. Measurements Intervals [place] Rate: 101 P: 0 OK: 0 QRS: 183 QRSD: 86 T: 169 QT: 418 QTc: 542 Interpretive Statements Possible atrial fibrillation with rapid ventricular rate with premature ventricular contractions Further interpretation is not possible because of heavy artifact Electronically Signed On 09-19-2023 13:45:01 CDT by Figueroa Guardado M.D. [email or web address] [email or web address] medical [id number]
--- NOTE | 2023-09-19 11:38 | W.ED.EXTPRO ---
HPI - Extremity Problem General: Chief complaint: Extremity Problem,Nontraumatic Stated complaint: ADRIANNA LOW EXT PAIN Time Seen by Provider: 09/19/23 11:31 History of Present Illness: 83-year-old man with a history of atrial fibrillation, DVT, hypertension, coronary artery disease, Parkinson's disease and chronic hypoxemic respiratory failure on 4 L nasal cannula who presents by ambulance from the alf with bilateral calf pain and swelling. He says this started fairly acutely about 2:30 AM. Apparently he is not currently on any blood thinners.? EMS says that at some point recently he had gone to another hospital with with a possible intracranial hemorrhage or head injury. He says he is a little bit more short of breath than he usually is. He is not requiring more oxygen. No chest pain. [facility] ED PFSH: Medical History On tube feeding diet Thyroid disease Afib Pacemaker Parkinson's Disease Surgical History History of surgery on arm Status post deep brain stimulator placement Family History Other Cancer Diabetes Hypertension Denies family history of CAD (coronary artery disease) Family history of premature coronary artery disease Stroke Social History Smoking and tobacco/nicotine status: former use of tobacco/nicotine Quit status (tobacco/nicotine): has quit using Year quit tobacco: 1986 Alcohol intake: current Alcohol intake frequency: 3 or more drinks per day Alcohol type: beer Substance/Drug Use: never Physical Exam Narrative: EXAM NARRATIVE: General: Alert, no acute distress. Skin: Warm, dry. Head: Normocephalic, atraumatic. Neck: Supple, trachea midline. Eye: Extraocular movements are intact. Ears, nose, mouth and throat: mucosa moist. Cardiovascular: Irregular,, Normal peripheral perfusion. 2+ pitting tibial edema Respiratory: Lungs are clear to auscultation, respirations are non-labored, breath sounds are equal, Symmetrical chest wall expansion. Gastrointestinal: Soft, Nontender, Non distended, Normal bowel sounds. Musculoskeletal: Normal ROM, no deformity. Neurological: Alert and oriented, No focal neurological deficit observed. Psychiatric: Cooperative, appropriate mood & affect. Course Vital Signs: Vital signs: Vital Signs Temperature 97.9 F 09/19/23 11:29 Pulse Rate 107 H 09/19/23 11:29 Respiratory Rate 24 H 09/19/23 11:29 Blood Pressure 119/73 09/19/23 11:29 Pulse Oximetry 96 09/19/23 11:29 Oxygen Delivery Me thod Nasal Cannula 09/19/23 11:29 Oxygen Flow Rate 4 09/19/23 11:29 MDM - Extremity (Nontraumatic) Medical Decision Making Medical decision making: Differential diagnosis including but not limited to and based on the above HPI, review of systems and physical exam: for patient with edema: Congestive heart failure. Kidney failure. DVT / Pulmonary embolism. Protein malnutrition. Cirrhosis. Also patient has shortness of breath so chest x-ray was ordered. I do not believe he has a PE as he is not tachycardic and does not have increasing hypoxemia Orders placed to evaluate differential diagnosis based on the above differential, HPI and physical exam Chest x-ray: There is a pacemaker in place on the left. A stimulator in place on the right. What appears to be bilateral lateral fluffy infiltrates. This was reviewed and interpreted by myself the ER physician. EKG: Time 11:45 AM rate 101 atrial fibrillation with rapid ventricular response, No ST-T changes, no ectopy, This was reviewed and interpreted by myself the ER physician at 11:50 AM. Ultrasound of the lower extremities bilateral. IMPRESSION: Bilateral acute deep vein thrombosis. Review of alf records: After review is determined that he had been taken off of his Eliquis because of low blood counts. Not plan to restart until the . Lab Review: Laboratory results were reviewed and interpreted by myself the emergency room physician. Patient has stable leukocytosis at 14.7. Previous range between 13 and 20. Hemoglobin is stable at 9.4. Actually slightly improved over previous. No renal failure. BUN and creatinine are 19 and 0.7. Consultation: I spoke at length with Dr. Vazquez who had discharged the patient from the hospitalist service most recently. Given that he is stable on his 4 L nasal cannula with no increased hypoxemia and leukocytosis is similar. His only real new complaint today is leg pain which we can treat with pain medications. There is a questionable infiltrate on the right. He is a known aspiration risk. Discussed antibiotic coverage and we have agreed on doxycycline. Also agree that he should be able to be managed in the alf and if he gets worse he can be sent back to the emergency room. Reexamination: Patient remained stable. Heart rate down to the 80s. No increased oxygen requirements. He still has fairly difficult to understand speech but no changes in this. No focal motor deficits. Medical Records I reviewed the patient's medical records. Lab Data 09/19/23 13:00 09/19/23 13:00 Radiology Impressions Venous Duplex 09/19/23 11:34 IMPRESSION: Bilateral acute deep vein thrombosis. THIS REPORT CONTAINS FINDINGS THAT MAY BE CRITICAL TO PATIENT CARE. The findings were verbally communicated via telephone conference with CAITLIN Shanks at 12:52 PM CDT on 09/19/2023. The findings were acknowledged and understood. Chest X-Ray 09/19/23 11:36 IMPRESSION: Infiltrates in bilateral lower lobes laterally, possibly worsening compared to previous study, evaluation limited by overlying stimulator device. Laboratory Results WBC 14.71 10^3/uL (3.29-11.43) H 09/19/23 13:00 RBC 3.01 10^6/uL (3.85-5.65) L 09/19/23 13:00 Hgb 9.40 g/dL (11.27-16.99) L 09/19/23 13:00 Hct 29.9 % (37-53) L 09/19/23 13:00 MCV 99.3 fl (82-101) 09/19/23 13:00 MCH 31.2 pg (27-33) 09/19/23 13:00 MCHC 31.4 g/dL (30-55) 09/19/23 13:00 RDW 18.2 % (12.1-15.1) H 09/19/23 13:00 Plt Count 206 10^3/cmm (157-399) 09/19/23 13:00 MPV 9.1 fL (7.4-10.4) 09/19/23 13:00 Neut % (Auto) 83.0 % 09/19/23 13:00 Lymph % (Auto) 6.3 % 09/19/23 13:00 Tate % (Auto) 8.6 % 09/19/23 13:00 Eos % (Auto) 0.3 % 09/19/23 13:00 Baso % (Auto) 0.1 % 09/19/23 13:00 Neut # (Auto) 12.21 10^3/uL (1.8-7.7) H 09/19/23 13:00 Lymph # (Auto) 0.9 10^3/uL (0.8-4.8) 09/19/23 13:00 Tate # (Auto) 1.3 10^3/uL (0.2-0.9) H 09/19/23 13:00 Eos # (Auto) 0.0 10^3/uL (0.0-0.8) 09/19/23 13:00 Baso # (Auto) 0.0 10^3/uL (0.0-0.1) 09/19/23 13:00 Nucleated RBC % (auto) 0 % 09/19/23 13:00 Nucleated RBCs # 0.0 /100WBC 09/19/23 13:00 PT 15.00 SECONDS (12.1-14.9) H 09/19/23 13:00 INR 1.14 (0.8-1.2) 09/19/23 13:00 APTT 28.7 SECONDS (23.9-36.7) 09/19/23 13:00 Sodium 140 mmol/L (136-145) 09/19/23 13:00 Potassium 4.2 mmol/L (3.5-5.1) 09/19/23 13:00 Chloride 103 mmol/L (98-107) 09/19/23 13:00 Carbon Dioxide 26 mmol/L (22-29) 09/19/23 13:00 Anion Gap 15.2 (5-19) 09/19/23 13:00 BUN 19 mg/dL (8-23) 09/19/23 13:00 Creatinine 0.7 mg/dL (0.7-1.2) 09/19/23 13:00 GFR Calculation Not Reportable 09/19/23 13:00 Glucose 113 mg/dL (65-115) 09/19/23 13:00 Calculated Osmolality 293 mOsm/kg (285-295) 09/19/23 13:00 Calcium 9.2 mg/dL (8.5-10.5) 09/19/23 13:00 Total Bilirubin 1.6 mg/dL (0.15-1.2) H 09/19/23 13:00 AST 15 U/L (0-40) 09/19/23 13:00 ALT 37 U/L (0-41) 09/19/23 13:00 Alkaline Phosphatase 98 U/L (40-130) 09/19/23 13:00 Troponin T Baseline 8 ng/L (0-15) 09/19/23 13:00 NT-Pro-B Natriuret Pep 686 pg/mL (0-450) H 09/19/23 13:00 Total Protein 6.8 g/dL (6.6-8.7) 09/19/23 13:00 Albumin 4.6 g/dL (3.5-5.2) 09/19/23 13:00 Globulin 2.2 g/dL (1.3-4.6) 09/19/23 13:00 All radiology interpretation(s) finalized by discharge Other Data Assessment and plan: Leg pain Chronic deep vein thrombosis. IVC filter in place Anemia Chronic hypoxemic respiratory failure Chronic aspiration Probable aspiration pneumonia Atrial fibrillation -[place] for pain in his legs. He has a IVC filter in place. Hemoglobin is stable. I do not see a reason to change the plan to continue to hold Eliquis until the designated date. -Anemia is stable. 9.4. -Patient is on 4 L nasal cannula at all times. No increased requirements. -A-fib is rate controlled. He does have risk for stroke, but it has been determined to hold his blood thinners because of his anemia -Doxycycline for pneumonia. I discussed this with the hospitalist and if he worsens he can be return to the emergency room and admitted on broad-spectrum antibiotics - Discharged home - Discussed findings and plan with patient. Answered any questions. - All laboratory values were reviewed and interpreted personally by myself, the ER physician - All imaging was reviewed and interpreted personally by myself, the ER physician. - Evaluation and treatment of this problem were appropriate in the emergency setting Discharge Plan Discharge Patient Disposition: Home Clinical Impression: Deep vein thrombosis of lower extremity, Lower extremity edema, Chronic hypoxic respiratory failure, Presence of IVC filter, Aspiration pneumonia Condition: Stable Prescriptions: New doxycycline hyclate 100 mg capsule 100 mg PO BID 7 Days Qty: 14 0RF hydrocodone-acetaminophen 5-325 mg tablet 1 tab PO Q6H PRN (Reason: pain) Qty: 20 0RF No Action tamsulosin 0.4 mg capsule 0.4 mg PO DAILY metoprolol tartrate 25 mg Tablet 25 mg feeding tube BID carbidopa-levodopa 25-250 mg Tablet 2 tab feeding tube DAILY rivastigmine tartrate 1.5 mg Capsule 1.5 mg feeding tube DAILY docusate sodium 50 mg/5 mL Liquid 10 ml feeding tube BID doxazosin 1 mg Tablet 1 mg feeding tube DAILY furosemide [Lasix] 40 mg Tablet 40 mg feeding tube DAILY Tylenol 325 mg Tablet 650 mg feeding tube Q4H PRN (Reason: Pain) potassium chloride 20 mEq/15 mL Liquid 20 meq feeding tube DAILY levothyroxine 75 mcg Tablet 75 mcg feeding tube DAILY magnesium hydroxide [Milk of Magnesia] 400 mg/5 mL Suspension 30 ml PO .IF NO BM IN 3 DAYS PRN (Reason: Constipation) bisacodyl 10 mg Suppository 10 mg [place] DAILY PRN (Reason: Constipation) Rx Instructions: if no results from mom Multivitamin-Minerals Tablet 1 tab feeding tube DAILY ferrous sulfate 325 mg (65 mg iron) tablet 325 mg feeding tube DAILY Discharge Orders: Discharge ED (Routine); Ordered 09/19/23 Ordered By: Caitlin Martinez Referrals: Lance Davila MD [Primary Care Provider] - (You have been screened and evaluated and felt safe for discharge. Health conditions do change or evolve sometimes and as such it is important that you follow up with your Primary Doctor to be re checked, 3-5 days is a general good time frame for follow up. 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
--- NOTE | 2023-09-19 12:34 | PC.PHAR ---
Addendum entered by Janine Mueller 09/19/23 13:44: [facility] [phone] to see if pt had any medications today-no answer Original Note: pt is from [facility]-medications entered are from the pts mar and tar that was sent with the pt
[2023-09-19 13:05] LABS: Basophils % 0.1 %; Eosinophils % 0.3 %; Hematocrit 29.9 % (37-53); Lymphocytes # 0.9 10^3/uL (0.8-4.8); Lymphocytes % 6.3 %; Mean Corpuscular HGB Conc 31.4 g/dL (30-55); Mean Corpuscular Hemoglobin 31.2 pg (27-33); Mean Corpuscular Volume 99.3 fl (82-101); Mean Platelet Volume 9.1 fL (7.4-10.4); Monocytes # 1.3 10^3/uL (0.2-0.9); Monocytes % 8.6 %; Neutrophils # 12.21 10^3/uL (1.8-7.7); Nucleated Red Blood Cells % 0 %; Platelet Count 206 10^3/cmm (157-399); Red Blood Count 3.01 10^6/uL (3.85-5.65); Red Cell Distribution Width 18.2 % (12.1-15.1); White Blood Count 14.71 10^3/uL (3.29-11.43)
[2023-09-19 13:17] LABS: INR 1.14 (0.8-1.2)
[2023-09-19 13:18] LABS: Partial Thromboplastin Time 28.7 SECONDS (23.9-36.7)
[2023-09-19 13:26] LABS: Troponin(5th) Baseline 8 ng/L (0-15)
[2023-09-19 13:36] LABS: Alanine Aminotransferase 37 U/L (0-41); Albumin Level 4.6 g/dL (3.5-5.2); Alkaline Phosphatase 98 U/L (40-130); Anion Gap 15.2 (5-19); Aspartate Amino Transferase 15 U/L (0-40); Blood Urea Nitrogen 19 mg/dL (8-23); Calcium 9.2 mg/dL (8.5-10.5); Carbon Dioxide 26 mmol/L (22-29); Chloride 103 mmol/L (98-107); Creatinine Clr Calc Pharmacy 81.4852; Globulin 2.2 g/dL (1.3-4.6); Glucose 113 mg/dL (65-115); NT Pro B Type Natriuretic Pept 686 pg/mL (0-450); Osmolality Calculated 293 mOsm/kg (285-295); Potassium 4.2 mmol/L (3.5-5.1); Sodium 140 mmol/L (136-145); Total Bilirubin 1.6 mg/dL (0.15-1.2); Total Protein 6.8 g/dL (6.6-8.7)
--- NOTE | 2023-09-19 13:37 | ECG_ITS ---
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 Measurements Intervals [place] Rate: 86 P: 0 FL: 0 QRS: -89 QRSD: 89 T: -38 QT: 380 QTc: 456 Interpretive Statements Possible atrial fibrillation with a controlled ventricular response rate of 86 bpm. Heavy baseline artifact Further interpretation is not possible Electronically Signed On 09-19-2023 13:48:07 CDT by Figueroa Guardado M.D. [id number]
[2023-09-19 14:00] VITALS: BP 122/57; PULSE 94; RESP 16; O2SAT 95
[2023-09-19] MEDS: doxycycline 100 mg Tablet PO (15:04)
[2023-09-19 16:15] VITALS: BP 117/65; PULSE 87; O2SAT 97
== END 2023-09-19 16:17 | disposition home or self-care (01) ==
PROVIDERS: Emergency Provider Emergency Medicine; PCP Obstetrics & Gynecology
DX: I82.403 Acute embolism and thrombosis of unspecified deep veins of lower extremity, bilateral (principal); R60.0 Localized edema; J96.11 Chronic respiratory failure with hypoxia; J69.0 Pneumonitis due to inhalation of food and vomit; Z95.818 Presence of other cardiac implants and grafts; Z95.0 Presence of cardiac pacemaker; G20.A1 Parkinson's disease without dyskinesia, without mention of fluctuations; Z87.891 Personal history of nicotine dependence
CPT/HCPCS: 71045; 80053; 83880; 84484; 85025; 85610; 85730; 93005; 93970; 99285

== ENCOUNTER → 2024-03-16 14:58 | Outpatient (BNVA) | payer MEDICARE, MEDICAID, SELFPAY | PROVIDERS: PCP Obstetrics & Gynecology; Visit Provider Specialist | DX: G20.A2 Parkinson's disease without dyskinesia, with fluctuations (principal); Z96.89 Presence of other specified functional implants; R47.1 Dysarthria and anarthria; G24.3 Spasmodic torticollis | CPT/HCPCS: 95983; 99215 ==

== ENCOUNTER → 2024-04-15 10:44 | Outpatient (BNVA) | payer MEDICARE, MEDICAID, SELFPAY | PROVIDERS: PCP Obstetrics & Gynecology; Visit Provider Specialist | DX: G24.3 Spasmodic torticollis (principal); G20.A2 Parkinson's disease without dyskinesia, with fluctuations; R47.1 Dysarthria and anarthria; Z96.89 Presence of other specified functional implants | CPT/HCPCS: 64616; 99213 ==

== ENCOUNTER → 2024-07-08 08:14 | Outpatient (BNVA) | payer MEDICARE, MEDICAID, SELFPAY | PROVIDERS: PCP Obstetrics & Gynecology; Visit Provider Specialist | DX: G24.3 Spasmodic torticollis (principal) | CPT/HCPCS: 64616; 99213 ==

== ENCOUNTER → 2024-10-07 12:12 | Outpatient (BNVA) | payer MEDICARE, MEDICAID, SELFPAY | PROVIDERS: PCP Obstetrics & Gynecology; Visit Provider Specialist | DX: G24.3 Spasmodic torticollis (principal) | CPT/HCPCS: 64616; 99213; J9999 ==

== ENCOUNTER → 2025-01-05 10:32 | Outpatient (BNVA) | payer MEDICARE, MEDICAID, SELFPAY | PROVIDERS: PCP Obstetrics & Gynecology; Visit Provider Specialist | DX: G24.3 Spasmodic torticollis (principal) | CPT/HCPCS: 64616; 99213; J9999 ==

== ENCOUNTER → 2025-04-06 12:43 | Outpatient (BNVA) | payer MEDICARE, MEDICAID, SELFPAY | PROVIDERS: PCP Obstetrics & Gynecology; Visit Provider Specialist | DX: G24.3 Spasmodic torticollis (principal); G20.A2 Parkinson's disease without dyskinesia, with fluctuations; Z96.89 Presence of other specified functional implants; R47.1 Dysarthria and anarthria | CPT/HCPCS: 64616; 99213; J9999 ==